=== PATIENT | female | born 1950 | race Caucasian/White ===

== ENCOUNTER → 2016-12-15 | Outpatient (CLI) | payer BC ==
[~2016-12-15] MED LIST: ALBU18002 INH; ASPI81TA28 PO; CALC600T9 PO; CLR10 PO; FERR1TAB23 PO; FLUT0.15 NAE; FLUT1AER5 INH; FMR25 PO; FURO20TA PO; GLUC1000 PO; HYZ/10015 PO; IBUP-103 PO; INSDGI SC; IRON PO; LETR2TAB PO; MAGN250T3 PO; MULT-506 PO; NVLGI SC; OMEG10007 PO; POTA10TA PO; RANI150T3 PO; SYMIN160 INH; TRAM-10 PO; VITA400C15 PO
--- NOTE | 2016-12-15 15:13 | MAMMOGRAPHY REPORT ---
UNILATERAL LEFT DIGITAL SCREENING MAMMOGRAM TOMOSYNTHESIS WITH CAD: 12/15/2016 CLINICAL HISTORY: Routine screening. Patient has no complaints. TECHNIQUE: Left breast tomosynthesis in addition to standard 2D mammography was performed. Current slick rouse was also evaluated with a Computer Aided Detection (CAD) system. COMPARISON: Comparison is made to exams dated: 12/13/2015 mammogram, 12/08/2014 mammogram, 11/30/2014 m ammogram, 01/18/2014 ultrasound, 11/20/2011 mammogram, and 11/19/2010 mammogram - [facility]. BREAST COMPOSITION: There are scattered areas of fibroglandular density in the left breast. FINDINGS: There is a benign popcorn calcification, a few benign coarse calcifications and groupings of coarse heterogeneous microcalcifications in the left breast that are benign in appearance. No ne w suspicious mass, architectural distortion or cluster of new, suspicious microcalcifications is see n. IMPRESSION: ACR BI-RADS CATEGORY 1: NEGATIVE There is no mammographic evidence of malignancy. A 1 year screening mammogram is recommended. The p atient will receive written notification of the results. Approximately 10% of breast cancers are not detected with mammography. A negative mammographic repor t should not delay biopsy if a clinically suggestive mass is present. Nicolette Menard M.D. ay/:12/15/2016 14:37:12 Seaman Officer: Sara WOODS(Domi)(M), [facility] letter sent: Normal 1/2 BI-RADS Code: ACR BI-RADS Category 1: Negative
== END | disposition home or self-care (01) ==
LOC: C.MAMM 12:09
PROVIDERS: ATTEND Family Medicine
DX: Z12.31 Encounter for screening mammogram for malignant neoplasm of breast (principal); Z90.12 Acquired absence of left breast and nipple

== ENCOUNTER → 2017-01-01 | Outpatient (CLI) | payer BC | END | disposition home or self-care (01) | LOC: C.MAMM 10:03 | PROVIDERS: ATTEND Nurse Practitioner | DX: M85.88 Other specified disorders of bone density and structure, other site (principal) ==

== ENCOUNTER → 2017-02-18 | Outpatient (CLI) | payer BC ==
[~2017-02-18] MED LIST changes: -FLUT1AER5 INH; -IRON PO; -LETR2TAB PO; +NVLGI/PEN SC; +VITACAP37 PO
[2017-02-18 12:37] LABS: BLOOD UREA NITROGEN 20 mg/dl (7-18); BUN/CREATININE RATIO 21.6 (10-20); CALCIUM 9.3 mg/dl (8.5-10.1); CARBON DIOXIDE 29 mmol/L (21-32); CHLORIDE 107 mmol/L (98-107); CREATININE 0.91 mg/dl (0.60-1.20); GLUCOSE 107 mg/dl (70-99); POTASSIUM 4.2 mmol/L (3.5-5.1); SODIUM 141 mmol/L (136-145)
[2017-02-18 12:39] LABS: ESTIMATED AVERAGE GLUCOSE 137 mg/dl; HA1C FLAG Normal (Normal); HEMATOCRIT 44.6 % (37-47); MEAN CELL VOLUME 99.6 fL (80-100); MEAN CORPUSCULAR HGB CONC 31.2 g/dl (32-36); MEAN PLATELET VOLUME 11.1 fL (7.4-10.4); PLATELET COUNT 160 K/uL (130-400); RED BLOOD COUNT 4.48 M/uL (4.2-5.4); WHITE BLOOD COUNT 117.39 K/uL (4.8-10.8)
[2017-02-18 12:41] LABS: ALB/GLOB RATIO 1.4 (0.9-2); ALKALINE PHOSPHATASE 67 U/L (45-117); ALT/SGPT 28 U/L (12-78); AST/SGOT 16 U/L (15-37); CHOLESTEROL 185 mg/dl (0-200); CHOLESTEROL/HDL RATIO 5.4; HDL CHOLESTEROL 34 mg/dl; LDL CHOLESTEROL CALCULATED 118 mg/dl; TRIGLYCERIDES 167 mg/dl (0-150); VERY LOW DENSITY LIPOPROT CALC 33 mg/dl
[2017-02-18 12:54] LABS: RATIO 5.1 mcg/mg (0-30.0)
[2017-02-18 13:32] LABS: BASO ABS # 0.94 K/uL (0-0.2); BASOPHIL % 0.8 %; COMPLETE YES; LYMPH ABS # 109.88 K/uL (1.2-3.4); LYMPHOCYTE % 93.6 %; NEUTROPHILS % 2.4 %; SMUDGE CELLS PRESENT; STOMATOCYTE 2+
== END | disposition home or self-care (01) ==
LOC: C.LABPVFM 07:50
PROVIDERS: ATTEND Family Medicine
DX: E11.9 Type 2 diabetes mellitus without complications (principal); E78.5 Hyperlipidemia, unspecified; I10 Essential (primary) hypertension; C91.10 Chronic lymphocytic leukemia of B-cell type not having achieved remission; C50.919 Malignant neoplasm of unspecified site of unspecified female breast

== ENCOUNTER → 2017-03-05 | Day surgery (SDC) | payer BC ==
[2017-02-16 08:36] VITALS: Ht 167.6 cm; Wt 125.5 kg
[~2017-03-05] VITALS: Ht 167.6 cm; Wt 125.5 kg
[~2017-03-05] MED LIST changes: +IOPAMIDOL INJ 61% 15 ML VIAL ONE; +LIDOCAINE HCL 1% MPF 5 ML VIAL ONE; +SODIUM CHLORIDE 0.9% INJ 10 ML VIAL ONE
--- NOTE | 2017-03-05 13:51 | History & Physical Bridge - SC ---
H&P Re-Evaluation Bridge Note: I have examined the patient, reviewed the History & Physical and in the interval since the performance of the History & Physical I have noted the following changes of clinical significance: No changes noted
[2017-03-05 14:17] VITALS: TEMP 37.2
--- NOTE | 2017-03-05 14:24 | Discharge Instructions ---
Discharge Instructions Date of Service March 05, 2017. Visit Reason for Visit: Lumbar Radiculopathy Discharge Discharge Diagnosis / Problem: back and leg pain Discharge Goals Goal(s): Decrease discomfort, Improve function Activity Recommendations Activity Limitations: resume your previous activity Anesthesia . Post Anesthesia Instructions: If you have had General Anesthesia or IV Sedation: * Do not drive today. * Resume driving when surgeon permits. * Do not make important decisions or sign legal documents today. * Call surgeon for: 1. Temperature elevations greater than 101 degrees F. 2. Uncontrollable pain. 3. Excessive bleeding. 4. Persistent nausea and vomiting. 5. Medication intolerance (nausea, vomiting or rash). * For nausea and vomiting use only clear liquids such as: tea, soda, bouillon until nausea subsides, then gradually increase diet as tolerated. * If you have any concerns or questions, call your surgeon's office. If physician is unavailable and it is an emergency, call 911 or go to the nearest emergency room. . Diet Recommendations Recommended Home Diet: resume previous diet Procedures Procedures Performed: Lumbar Epidural Steroid Injection Pending Studies Studies pending at discharge: no Medical Emergencies . Who to Call and When: Medical Emergencies: If at any time you feel your situation is an emergency, please call 911 immediately. . Non-Emergent Contact Non-Emergency issues call your: Specialist . . "Provider Documentation" section prepared by Valentin Titus. .
[2017-03-05 14:26] VITALS: BP 122/78; PULSE 85; O2SAT 93
--- NOTE | 2017-03-05 16:41 | OPERATIVE REPORT ---
DATE OF OPERATION: 03/05/2017 PREOPERATIVE DIAGNOSIS: Lumbar spinal stenosis with neurogenic claudication. POSTOPERATIVE DIAGNOSIS: Same. PROCEDURE: Left paramedian L4-L5 interlaminar epidural steroid injection under fluoroscopic guidance. INDICATIONS: The patient is a 66-year-old white female who underwent an epidural injection in 08/2016, did very well up until a short period ago when her pain started to return and be problematic to her. She presents today for an injection to provide her with relief of neurogenic claudication issues. PHYSICAL EXAMINATION: Pleasant female seated comfortably. She is nontender to palpation. She had no issues with forward flexion or extension. She had normal lower extremity strength. Negative seated straight leg raises. CONSENT: Verbal and written consent was obtained from the patient. Risks and benefits were reviewed. Risks include but are not limited to epidural abscess, epidural hematoma, allergic reaction, dural puncture. The patient wishes to proceed. PROCEDURE IN DETAIL: The patient was taken back to the special procedures room of the [facility] where she was maintained in a prone position. Backside was cleansed with Betadine x3 and a dry sterile dressing was applied. Fluoroscope was used to identify the L4-L5 interlaminar space. Overlying skin on the right side was anesthetized with 4 mL of lidocaine 1% with a 25-gauge 1-1/2-inch needle. A 22-gauge 4-1/4-inch Tuohy needle was then directed down toward the interlaminar space, was advanced under lateral fluoroscopic guidance, loss of resistance was noted at a depth of 9.5 cm. Isovue-300 contrast 1 mL was injected which demonstrated epidural uptake pattern which was confirmed with both AP and lateral views. She then underwent injection after negative aspiration of 40 mg of Depo-Medrol and 4 mL of preservative-free sodium chloride. Injection was done very slowly as she had a lot of pressure sensation in a normal distribution. DISPOSITION: 1. The patient is taken out into the discharge recovery area where she will be discharged home once discharge criteria have been met. 2. Follow up in the [facility] office in 2-4 weeks. I attest to the content of the Intraoperative Record and any orders documented therein. Any exceptio ns are noted below.
== END | disposition home or self-care (01) ==
LOC: X.SURG 12:55
PROVIDERS: ATTEND Physical Medicine & Rehabilitation
DX: M48.06 Spinal stenosis, lumbar region (principal); Z79.82 Long term (current) use of aspirin; Z79.899 Other long term (current) drug therapy

== ENCOUNTER → 2017-07-30 | Outpatient (CLI) | payer BC ==
[~2017-07-30] MED LIST changes: -ALBU18002 INH; -IOPAMIDOL INJ 61% 15 ML VIAL ONE; -LIDOCAINE HCL 1% MPF 5 ML VIAL ONE; -NVLGI/PEN SC; +OPTIRAY 320 IV PRN; -SODIUM CHLORIDE 0.9% INJ 10 ML VIAL ONE; -VITACAP37 PO
--- NOTE | 2017-07-30 13:34 | DIAGNOSTIC IMAGING REPORT ---
(CHEST) THORAX WITH CLINICAL HISTORY: 67 years-old Female presenting with CLL, history of breast cancer. TECHNIQUE: Multidetector CT imaging of the chest was performed after the administration of intravenous contrast. IV contrast: 118 mL of Optiray 320. A dose lowering technique was used consistent with the principles of ALARA (as low as reasonably achievable). COMPARISON: 01/11/2015. CT DOSE (mGy.cm): The estimated cumulative dose is 3370.01 mGy.cm. FINDINGS: Pelt Salter topogram: Unremarkable. On soft tissue windows, post surgical changes of right mastectomy. Significant interval increase in multifocal grossly metastatic lymphadenopathy involving the bilateral axillary, supraclavicular fossae, mediastinum, gloria, right internal mammary, and upper abdominal regions. Atherosclerosis of the aorta. Mild coronary artery and aortic valve calcification. Normal heart size. No pericardial or pleural effusion. Apart from frankly metastatic upper abdominal lymphadenopathy, the liver has a macronodular contour suggesting cirrhosis. On lung windows, bandlike opacities at the lung bases likely atelectasis or scarring. Airways patent. On bone windows, degenerative changes of the thoracic spine. Heterogeneous radiolucency in the T8 vertebral body with a morphology that suggests an underlying benign hemangioma. IMPRESSION: 1. Interval progression of disease with multifocal sites of lymphadenopathy as above, including in the upper abdomen. This is most suggestive of progressive lymphoproliferative disease, although the presence of right internal mammary lymphadenopathy raises concern for breast cancer recurrence. 2. No pulmonary parenchymal involvement. Electronically signed by: Isaak Dowling M.D. 07/30/2017 1:32 PM Dictated Date/Time: 07/30/2017 1:26 PM
--- NOTE | 2017-07-30 13:40 | DIAGNOSTIC IMAGING REPORT ---
CT SCAN OF THE ABDOMEN AND PELVIS WITH IV CONTRAST CLINICAL HISTORY: CLL. COMPARISON STUDY: Abdominal CT dated 03/06/2014. TECHNIQUE: Following the IV administration of 118 cc of Optiray 320, CT scan of the abdomen and pelvis is performed from the lung bases to the proximal femora. Images are reviewed in the axial, sagittal, and coronal planes. IV contrast was administered without complication. A dose lowering technique was utilized adhering to the principles of ALARA. The examination is degraded by large body habitus, and by streak artifact from the body wall abutting the CT gantry. FINDINGS: Lung bases: The heart is normal in size and without pericardial effusion. There is bibasilar scarring versus atelectasis. No airspace consolidation or pleural effusion is identified. Enlarged axillary lymph nodes are partially visualized and measure up to 3.4 x 2.2 cm. Enlarged inferior mediastinal lymph nodes are identified. A node adjacent to the ascending thoracic aorta on image #68 measures 2.7 x 1.5 cm. There are postoperative changes from previous right mastectomy. Liver: The contrast-enhanced liver is enlarged, measuring 24.5 cm in length. The liver is normal in attenuation. There is no intrahepatic biliary ductal dilatation. The hepatic veins and portal veins are patent. Gallbladder: Unremarkable. Spleen: The spleen is enlarged, measuring 17.8 cm in length. Pancreas: Moderately atrophic and grossly unremarkable. Adrenal glands: Unremarkable. Kidneys: The contrast enhanced kidneys demonstrate cortical atrophy and are without hydronephrosis. The kidneys enhance symmetrically. A 1.1 cm nonobstructing calculus is present in the right upper pole. A 3.1 x 3.2 cm lesion is seen arising from the lower pole of left kidney on axial image #250. The appearance is consistent with an angiomyolipoma, and this has modestly increased in size from 2014 when it measured up to 2.1 cm. Abdominal vasculature: The abdominal aorta is normal in course and caliber noting mild atherosclerotic calcification. Bowel: The small bowel and colon are normal in course and caliber. There is moderate diverticulosis of the left colon without CT evidence of acute diverticulitis. The appendix is well-visualized and normal. Peritoneum: There is no intraperitoneal free air or abdominal ascites. Lymphadenopathy: There is bulky upper abdominal, retroperitoneal, mesenteric, iliac chain, and pelvic sidewall lymphadenopathy. This has significantly progressed from the 03/06/2014 examination. Retroperitoneal lymphadenopathy encases the abdominal aorta and IVC. The largest majo aggregate measures approximately 5.5 x 13 cm in dimension as seen on image #224. A left pelvic sidewall node on image #409 measures 7.5 x 3.7 cm. Mildly enlarged inguinal lymph nodes are identified. The largest is on the left seen on image #428 and measures 2.5 x 2.2 cm. Pelvic viscera: The bladder, uterus, and adnexa are normal as visualized. Skeletal structures: The skeletal structures are osteopenic. There is moderate lumbosacral spondylosis. A left hemitransitional lumbosacral segment is incidentally noted. No lytic or blastic lesions are seen. IMPRESSION: 1. There is bulky axillary, mediastinal, upper abdominal, mesenteric, retroperitoneal, iliac chain, pelvic sidewall, and inguinal lymphadenopathy as detailed above. This has significantly progressed from 03/06/2014. 2. Hepatosplenomegaly. Splenomegaly has significantly increased from 2014. 3. No acute infectious or inflammatory findings are identified. 4. Moderate diverticulosis of the left colon without CT evidence of acute diverticulitis. 5. There has been modest enlargement of an angiomyolipoma arising from the lower pole of the left kidney as compared to 03/06/2014. 6. Right-sided nephrolithiasis. 7. Additional findings as above. Electronically signed by: Jeffrey Uribe M.D. 07/30/2017 1:38 PM Dictated Date/Time: 07/30/2017 1:26 PM
== END | disposition home or self-care (01) ==
LOC: C.CTS 12:20
PROVIDERS: ATTEND Nurse Practitioner Family
DX: C91.10 Chronic lymphocytic leukemia of B-cell type not having achieved remission (principal)

== ENCOUNTER → 2017-09-10 | Day surgery (SDC) | payer BC ==
[2017-08-14 13:21] VITALS: Ht 167.6 cm; Wt 122.3 kg
[~2017-09-10] VITALS: Ht 167.6 cm; Wt 122.3 kg
[~2017-09-10] MED LIST changes: +IOPAMIDOL INJ 61% 15 ML VIAL ONE; +LIDOCAINE HCL 1% MPF 5 ML VIAL ONE; -NVLGI SC; +NVLGI/PEN SC; -OPTIRAY 320 IV PRN; +SODIUM CHLORIDE 0.9% INJ 10 ML VIAL ONE; -VITA400C15 PO; +VITACAP37 PO
[2017-09-10 14:30] VITALS: TEMP 37
--- NOTE | 2017-09-10 14:40 | Discharge Instructions ---
Discharge Instructions Date of Service Sep 10, 2017. Visit Reason for Visit: Lumbar Radiculopathy Discharge Discharge Diagnosis / Problem: leg pains Discharge Goals Goal(s): Decrease discomfort, Improve function Medications Stopped Medications Name(s): ASAKENNETH STOPPED ON THURSDAY Activity Recommendations Activity Limitations: resume your previous activity Anesthesia . Post Anesthesia Instructions: If you have had General Anesthesia or IV Sedation: * Do not drive today. * Resume driving when surgeon permits. * Do not make important decisions or sign legal documents today. * Call surgeon for: 1. Temperature elevations greater than 101 degrees F. 2. Uncontrollable pain. 3. Excessive bleeding. 4. Persistent nausea and vomiting. 5. Medication intolerance (nausea, vomiting or rash). * For nausea and vomiting use only clear liquids such as: tea, soda, bouillon until nausea subsides, then gradually increase diet as tolerated. * If you have any concerns or questions, call your surgeon's office. If physician is unavailable and it is an emergency, call 911 or go to the nearest emergency room. . Diet Recommendations Recommended Home Diet: resume previous diet Procedures Procedures Performed: LUMBAR EPIDURAL STEROID INJECTION Pending Studies Studies pending at discharge: no Medical Emergencies . Who to Call and When: Medical Emergencies: If at any time you feel your situation is an emergency, please call 911 immediately. . Non-Emergent Contact Non-Emergency issues call your: Specialist . . "Provider Documentation" section prepared by Valentin Titus. .
[2017-09-10 14:44] VITALS: BP 139/73; PULSE 74; O2SAT 97
--- NOTE | 2017-09-10 15:14 | OPERATIVE REPORT ---
DATE OF OPERATION: 09/10/2017 PREOPERATIVE DIAGNOSES: Lumbar spinal stenosis with neurogenic claudication and left greater than right lower extremity radiculopathy involving the L4 nerve root. POSTOPERATIVE DIAGNOSES: Same. PROCEDURE: Left paramedian L4-L5 interlaminar epidural steroid injection under fluoroscopic guidance. INDICATIONS: The patient is a 67-year-old white female who last received an epidural injection in February 2017 and did very well up until a short time ago when her radicular pain started to returning and being problematic. She presents today for an epidural injection to provide her with relief of the radicular pain. PHYSICAL EXAMINATION: GENERAL: Pleasant female seated comfortably in no apparent distress. MUSCULOSKELETAL: She had no issues with forward flexion. She had normal lower extremity strength and intact sensation distally. CONSENT: Verbal and written consent was obtained from the patient. Risks and benefits were reviewed. Risks include, but are not limited to epidural abscess, epidural hematoma, allergic reaction, and dural puncture. The patient wishes to proceed. DESCRIPTION OF PROCEDURE: The patient was taken back into the special procedures room of the [facility], where she was maintained in a prone position. Backside was cleansed with Betadine x3 and a dry sterile dressing was applied. Fluoroscope was used to identify the L4-L5 interlaminar space. Overlying skin on the left side was then anesthetized with 4 mL of lidocaine 1% with a 25-gauge 1-1/2 inch needle. A 22-gauge 4-1/4 inch Tuohy needle was then directed down towards the intralaminar space. It was advanced under lateral fluoroscopic guidance and loss of resistance was noted at a depth of 11 cm. Isovue-300 contrast 1 mL was injected in which demonstrated an epidural uptake pattern on the lateral view. She then underwent injection after negative aspiration of 40 mg of Depo-Medrol and 4 mL of preservative free sodium chloride. Injection was well tolerated and reproduced a transient radicular sensation down the leg and buttocks, which resolved. DISPOSITION: 1. The patient was taken out into the discharge recovery area, where she will be discharged home once discharge criteria have been met. 2. Follow up in the [facility] office in 4 weeks. I attest to the content of the Intraoperative Record and any orders documented therein. Any exception s are noted below.
== END | disposition home or self-care (01) ==
LOC: X.SURG 12:47
PROVIDERS: ATTEND Physical Medicine & Rehabilitation
DX: M48.062 Spinal stenosis, lumbar region with neurogenic claudication (principal); M54.16 Radiculopathy, lumbar region; Z79.82 Long term (current) use of aspirin

== ENCOUNTER → 2017-12-16 | Outpatient (CLI) | payer BC ==
[~2017-12-16] MED LIST changes: -IOPAMIDOL INJ 61% 15 ML VIAL ONE; -LIDOCAINE HCL 1% MPF 5 ML VIAL ONE; -SODIUM CHLORIDE 0.9% INJ 10 ML VIAL ONE
--- NOTE | 2017-12-16 15:14 | MAMMOGRAPHY REPORT ---
UNILATERAL LEFT DIGITAL DIAGNOSTIC MAMMOGRAM TOMOSYNTHESIS WITH CAD: 12/16/2017 CLINICAL HISTORY: 67-year-old woman with a personal history of right breast cancer status post mastec marybeth, presents for annual mammographic evaluation of the left breast. Patient also has a personal hi story CLL. TECHNIQUE: Left CC and MLO 2-D and tomosynthesis images were obtained, additional 2-D left MLO and e xaggerated lateral CC views were obtained to include more posterior and lateral tissue. Current stud y was also evaluated with a Computer Aided Detection (CAD) system. COMPARISON: Comparison is made to exams dated: 12/15/2016 mammogram, 12/13/2015 ultrasound, 12/13/2015 mammogram, 06/11/2015 mammogram, 12/08/2014 mammogram, and 11/30/2014 mammogram - [facility]. BREAST COMPOSITION: There are scattered areas of fibroglandular density in the left breast. FINDINGS: The glandular pattern is similar to prior exams. There is a stable circumscribed subcentim eter mass in the upper outer posterior left breast, which is stable in appearance dating back to [place] 2010, most likely an intramammary lymph node. There are scattered benign round microcalcificati ons and stable groupings of benign-appearing coarse heterogeneous calcifications in the medial left b reast. No new suspicious mass, architectural distortion or cluster of suspicious microcalcifications is seen. IMPRESSION: ACR BI-RADS CATEGORY 2: BENIGN There is no mammographic evidence of malignancy. Left breast mammography is recommended in one year, and consider remaining a diagnostic patient in case any additional views and/or ultrasound are neede d, given the personal history of right breast cancer. The patient has been verbally notified of the results. Approximately 10% of breast cancers are not detected with mammography. A negative mammographic report should not delay biopsy if a clinically suggestive mass is present. Nicolette Menard M.D. ay/:12/16/2017 10:42:41 Rn Endoscopy: Berenice WOODS(Domi)(M), [facility] letter sent: Normal 1/2 BI-RADS Code: ACR BI-RADS Category 2: Benign
== END | disposition home or self-care (01) ==
LOC: C.MAMM 10:15
PROVIDERS: ATTEND Nurse Practitioner Family
DX: Z85.3 Personal history of malignant neoplasm of breast (principal); Z08 Encounter for follow-up examination after completed treatment for malignant neoplasm

== ENCOUNTER → 2018-01-27 | Outpatient (CLI) | payer BC ==
[2018-01-27 13:51] LABS: HEMOGLOBIN A1C 6.1 % (4.5-5.6)
[2018-01-27 14:02] LABS: ALBUMIN 3.8 gm/dl (3.4-5.0); ALT/SGPT 33 U/L (12-78); BLOOD UREA NITROGEN 14 mg/dl (7-18); CALCIUM 9.6 mg/dl (8.5-10.1); CARBON DIOXIDE 25 mmol/L (21-32); CREATININE 0.76 mg/dl (0.60-1.20); GLUCOSE 165 mg/dl (70-99); POTASSIUM 3.6 mmol/L (3.5-5.1); SODIUM 138 mmol/L (136-145)
[2018-01-27 14:05] LABS: ALKALINE PHOSPHATASE 63 U/L (45-117); AST/SGOT 21 U/L (15-37); TOTAL PROTEIN 7.1 gm/dl (6.4-8.2)
== END | disposition home or self-care (01) ==
LOC: C.LABPVFM 07:33
PROVIDERS: ATTEND Family Medicine
DX: E11.9 Type 2 diabetes mellitus without complications (principal); I10 Essential (primary) hypertension; M54.9 Dorsalgia, unspecified; C91.10 Chronic lymphocytic leukemia of B-cell type not having achieved remission; J44.9 Chronic obstructive pulmonary disease, unspecified

== ENCOUNTER → 2018-02-05 | Outpatient (CLI) | payer BC ==
[~2018-02-05] MED LIST changes: +ALBU18002 INH; +ALLO100T PO; +OPTIRAY 320 IV PRN
--- NOTE | 2018-02-05 14:06 | DIAGNOSTIC IMAGING REPORT ---
CT SCAN OF THE NECK WITH IV CONTRAST CLINICAL HISTORY: CLL. COMPARISON STUDY: CT of the neck dated 04/06/2013. TECHNIQUE: Following the IV administration of 120 cc of Optiray 320, CT scan of the soft tissues of the neck was performed from the skull base to the upper chest. Images are reviewed in the axial, sagittal, and coronal planes. IV contrast was administered without complication. A dose lowering technique was utilized adhering to the principles of ALARA. CT DOSE: 2735.19 mGy.cm FINDINGS: Pharynx: The nasopharynx, oropharynx, and laryngeal pharynx are normal in appearance. The pharyngeal airway is widely patent. There is no evidence of mass lesion. The vocal cords are symmetric. The parapharyngeal fat is well maintained. The prevertebral/retropharyngeal soft tissues are within normal limits. The epiglottis is normal. Tiny calcified tonsilliths are observed. Lymphadenopathy: No pathologically enlarged cervical lymph nodes are identified. Numerous subcentimeter cervical nodes are present. These have decreased in size from the most recent prior study dated 04/06/2013. Thyroid: Normal in size and attenuation. Bilateral thyroid nodules measure up to 11 mm. A calcification is noted in the right lobe. Salivary glands: The parotid and submandibular glands are within normal limits. Brain parenchyma: The visualized brain parenchyma at the skull base is normal in appearance. Vascular structures: The carotid arteries and jugular veins are patent bilaterally. Atherosclerotic plaque is noted in the carotid bulbs. Skeletal structures: The skeletal structures are osteopenic. Imaged portions of the calvarium at the skull base are within normal limits. The cervical spine appears intact noting mild spondylosis. No lytic or blastic lesions identified. Sinuses and mastoids: Trace mucosal thickening is seen in the left maxillary antra. The remaining visualized paranasal sinuses are clear. The mastoid air cells are well pneumatized. Lung apices: Visualized apical lung parenchyma is clear. IMPRESSION: 1. No pathologically enlarged cervical lymph nodes are identified. 2. There are numerous subcentimeter cervical lymph nodes. These have decreased in size from the most recent prior examination dated 04/06/2013. 3. The pharyngeal soft tissues are normal as imaged. Electronically signed by: Jeffrey Uribe M.D. 02/05/2018 2:05 PM Dictated Date/Time: 02/05/2018 2:01 PM
--- NOTE | 2018-02-05 14:11 | DIAGNOSTIC IMAGING REPORT ---
CHEST CT WITH CONTRAST HISTORY: Follow-up study in a patient with history of breast cancer. 01/27/18 0742 CREA 0.76 TECHNIQUE: Multiaxial CT images of the chest were performed following the intravenous administration of contrast. A dose lowering technique was utilized adhering to the principles of ALARA. COMPARISON: CT abdomen and pelvis of same day, CT chest 07/30/2017. FINDINGS: No dominant thyroid nodule identified. Postoperative changes from prior right-sided mastectomy. There is resolution of the previously noted bilateral bulky axillary adenopathy. The largest lymph node within the right axilla no measures 6 mm, image 81 series 9 while previously the largest right axillary lymph nodes measure up to 2.0 cm in short axis. The largest lymph node of the left axilla now measures 9 mm on image 29 series 9, previously the largest left axillary lymph nodes measure up to 2.4 cm. There is resolution of the previously noted right internal mamillary adenopathy. No mediastinal adenopathy. Scattered nonenlarged retrocrural lymph nodes are present. Mildly prominent nonenlarged periportal lymph nodes are present. Heart is normal in size without pericardial effusion. Coronary arterial disease. Thoracic aorta is normal in course and caliber without aneurysm or dissection. Imaged great vessels appear patent. The opacified pulmonary arterial tree is unremarkable. No pneumothorax or pleural effusion. Subsegmental bibasilar groundglass opacities suggest atelectasis. No suspicious pulmonary nodules or masses. Central airways are patent. No acute process of the imaged upper abdomen. Calcification of the medial left breast. No suspicious lytic or blastic bony lesions. Multilevel degenerative changes about the thoracic spine. IMPRESSION: 1. Findings compatible with positive response to therapy with resolution of the previously noted bulky multifocal bilateral axillary, subpectoral, mediastinal and supraclavicular adenopathy. No new or progressive adenopathy identified. 2. Prior right-sided mastectomy. 3. No suspicious pulmonary nodules or masses identified. 4. No evidence of osseous metastatic disease. Electronically signed by: Mohinder Leonard M.D. 02/05/2018 2:09 PM Dictated Date/Time: 02/05/2018 1:57 PM
--- NOTE | 2018-02-05 14:15 | DIAGNOSTIC IMAGING REPORT ---
ABDOMEN AND PELVIS CT WITH IV AND ORAL CONTRAST CT DOSE: HISTORY: Lymphoma. Follow-up. TECHNIQUE: Multiaxial CT images of the abdomen and pelvis were performed following the use of intravenous and oral contrast. A dose lowering technique was utilized adhering to the principles of ALARA. COMPARISON STUDY: Abdomen and pelvis CT 07/30/2017. FINDINGS: Please refer to the dedicated chest CT performed the same day for further evaluation of the lower chest. No suspicious lytic or blastic osseous lesions. A right breast prosthesis is partially visualized. Mild anterior wedging at L1 remains unchanged. No acute fractures. Slightly nodular contour to the liver consistent with cirrhosis. Stable 7 mm hypodense lesion within the posterior segment of the right hepatic lobe. This is too small to characterize. The gallbladder, pancreas, spleen, and adrenal glands are unremarkable. There is an 8 mm stone within the upper pole the right kidney. No hydronephrosis. Stable exophytic fat-containing lesion within the lower pole of the left kidney. This is consistent with an angiomyolipoma and measures 3 cm. The bladder, uterus, bilateral adnexa are unremarkable. Colonic diverticulosis. No bowel wall thickening or obstruction. Normal appendix. No mesenteric lymphadenopathy. Tiny fat-containing umbilical hernia. Interval decrease in size in the multiple retroperitoneal and pelvic lymph nodes. For comparative purposes the dominant aortocaval lymph node measures 18 x 13 mm, previously measuring 5.7 x 4.0 cm. The inguinal lymph nodes are now normal in size. IMPRESSION: 1. Significant decrease in size in the retroperitoneal, pelvic, and inguinal lymph nodes as described above. The retroperitoneal lymph nodes remain mildly enlarged. 2. The spleen is normal in size. 3. Right-sided nephrolithiasis. No hydronephrosis. 4. 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 Electronically signed by: Elbert Alfred M.D. 02/05/2018 2:13 PM Dictated Date/Time: 02/05/2018 2:00 PM
== END | disposition home or self-care (01) ==
LOC: C.CTS 13:26
PROVIDERS: ATTEND Nurse Practitioner Family
DX: C91.10 Chronic lymphocytic leukemia of B-cell type not having achieved remission (principal); N20.0 Calculus of kidney; D17.71 Benign lipomatous neoplasm of kidney

== ENCOUNTER → 2018-02-08 | Outpatient (CLI) | payer BC ==
[~2018-02-08] MED LIST changes: -OPTIRAY 320 IV PRN
[2018-02-08 12:30] LABS: BASO ABS # 0.05 K/uL (0-0.2); EOS % 4.2 %; EOS ABS # 0.21 K/uL (0-0.5); HEMATOCRIT 40.6 % (37-47); IG# 0.05 K/uL (0.00-0.02); LYMPH % 7.3 %; LYMPH ABS # 0.37 K/uL (1.2-3.4); MEAN CELL VOLUME 95.1 fL (80-100); MEAN CORPUSCULAR HEMOGLOBIN 32.8 pg (25-34); MEAN CORPUSCULAR HGB CONC 34.5 g/dl (32-36); MEAN PLATELET VOLUME 11.1 fL (7.4-10.4); MONO % 12.1 %; MONO ABS # 0.61 K/uL (0.11-0.59); NEUT % 74.4 %; NEUT ABS # 3.77 K/uL (1.4-6.5); PLATELET COUNT 165 K/uL (130-400); RED CELL DISTRIBUTION WIDTH SD 48.5 fL (36.4-46.3); WHITE BLOOD COUNT 5.06 K/uL (4.8-10.8)
[2018-02-08 13:20] LABS: ALBUMIN 3.8 gm/dl (3.4-5.0); ALT/SGPT 33 U/L (12-78); AST/SGOT 18 U/L (15-37); BLOOD UREA NITROGEN 19 mg/dl (7-18); CALCIUM 9.5 mg/dl (8.5-10.1); CARBON DIOXIDE 24 mmol/L (21-32); CREATININE 1.03 mg/dl (0.60-1.20); GLUCOSE 232 mg/dl (70-99); POTASSIUM 3.8 mmol/L (3.5-5.1); SODIUM 139 mmol/L (136-145)
[2018-02-08 13:23] LABS: ALKALINE PHOSPHATASE 65 U/L (45-117)
== END | disposition home or self-care (01) ==
LOC: C.LABPVFM 08:55
PROVIDERS: ATTEND Nurse Practitioner Family
DX: C91.10 Chronic lymphocytic leukemia of B-cell type not having achieved remission (principal)

== ENCOUNTER → 2018-02-22 | Day surgery (SDC) | payer BC ==
[2018-02-11 10:41] VITALS: Ht 167.6 cm; Wt 125.9 kg
[~2018-02-22] VITALS: Ht 167.6 cm; Wt 125.9 kg
[~2018-02-22] MED LIST changes: +IOPAMIDOL INJ 61% 15 ML VIAL ONE; +LIDOCAINE HCL 1% MPF 5 ML VIAL ONE; -OMEG10007 PO; +SODIUM CHLORIDE 0.9% INJ 10 ML VIAL ONE
--- NOTE | 2018-02-22 14:02 | [facility] Post Operative Brief Note ---
Immediate Operative Summary Operative Date Feb 22, 2018. Pre-Operative Diagnosis RADICULOPATHY OF LUMBAR REGION Post-Operative Diagnosis RADICULOPATHY OF LUMBAR REGION Procedure(s) Performed LUMBAR EPIDURAL STEROID INJECTION Surgeon DR. Crystal MULLER Filter Operator Surgeon(s) None Estimated Blood Loss NONE Findings Consistent with Post-Op Diagnosis Specimens NA Drains None Anesthesia Type Local Complication(s) none Disposition Disposition:
--- NOTE | 2018-02-22 14:04 | Discharge Instructions ---
Discharge Instructions Date of Service Feb 22, 2018. Visit Reason for Visit: Lumbar Radiculopathy, Lumbar Spinal Stenosis Discharge Discharge Diagnosis / Problem: left leg pain Discharge Goals Goal(s): Decrease discomfort, Improve function Medications Stopped Medications Name(s): last dose of ibuprofen and asa last Activity Recommendations Activity Limitations: resume your previous activity Anesthesia . Post Anesthesia Instructions: If you have had General Anesthesia or IV Sedation: * Do not drive today. * Resume driving when surgeon permits. * Do not make important decisions or sign legal documents today. * Call surgeon for: 1. Temperature elevations greater than 101 degrees F. 2. Uncontrollable pain. 3. Excessive bleeding. 4. Persistent nausea and vomiting. 5. Medication intolerance (nausea, vomiting or rash). * For nausea and vomiting use only clear liquids such as: tea, soda, bouillon until nausea subsides, then gradually increase diet as tolerated. * If you have any concerns or questions, call your surgeon's office. If physician is unavailable and it is an emergency, call 911 or go to the nearest emergency room. . Diet Recommendations Recommended Home Diet: resume previous diet Procedures Procedures Performed: LUMBAR EPIDURAL STEROID INJECTION Pending Studies Studies pending at discharge: no Medical Emergencies . Who to Call and When: Medical Emergencies: If at any time you feel your situation is an emergency, please call 911 immediately. . Non-Emergent Contact Non-Emergency issues call your: Specialist . . "Provider Documentation" section prepared by Valentin Titus. .
[2018-02-22 14:05] VITALS: TEMP 37.1
[2018-02-22 14:28] VITALS: BP 131/86; PULSE 80; O2SAT 96
--- NOTE | 2018-02-22 14:37 | OPERATIVE REPORT ---
DATE OF OPERATION: 02/22/2018 PREOPERATIVE DIAGNOSIS: Lumbar spinal stenosis with a left L4 radiculopathy. POSTOPERATIVE DIAGNOSIS: Same. PROCEDURE: Left paramedian L4-L5 interlaminar epidural steroid injection under fluoroscopic guidance. INDICATIONS: The patient is a 67-year-old white female who has received epidural injections in the past a number of months ago. She did very well and the last shot was given in August of 2017; however, her pain has been starting to increase in significance and she presents today for a lumbar epidural steroid injection to provide her with radicular pain control. PHYSICAL EXAMINATION: Pleasant female, seated comfortably, in no apparent distress. She had normal lower extremity strength, intact sensation distally. Negative seated straight leg raises. CONSENT: Verbal and written consent was obtained from the patient. Risks and benefits were reviewed. Risks include but are not limited to epidural abscess, allergic reaction, dural puncture. The patient wishes to proceed. DESCRIPTION OF PROCEDURE: The patient was taken back to the special procedures room of [facility]. She was maintained in a prone position. Backside was cleansed with Betadine x3 and a dry sterile dressing was applied. Fluoroscope was used to identify the L4-L5 intralaminar space. Overlying skin was anesthetized with 4 mL of lidocaine 1% with a 25-gauge 1.5-inch needle. A 22-gauge 3.5-inch Tuohy needle was then directed down towards the intralaminar space. It was advanced under lateral fluoroscopic guidance and loss of resistance was noted at a depth of 10.5 cm. Isovue-300 contrast 1 mL was injected in which demonstrated epidural uptake pattern. She then underwent injection after negative aspiration of 40 mg Depo-Medrol and 4 mL of preservative-free sodium chloride. Injection was well tolerated. DISPOSITION: 1. The patient is taken out into the discharge recovery area where she will be discharged home once discharge criteria have been met. 2. Follow up in the [facility] office in 4 weeks' time. I attest to the content of the Intraoperative Record and any orders documented therein. Any exception s are noted below.
== END | disposition home or self-care (01) ==
LOC: X.SURG 12:45
PROVIDERS: ATTEND Physical Medicine & Rehabilitation
DX: M48.061 Spinal stenosis, lumbar region without neurogenic claudication (principal); M54.16 Radiculopathy, lumbar region; Z79.4 Long term (current) use of insulin; Z79.899 Other long term (current) drug therapy

== ENCOUNTER → 2018-05-31 | Outpatient (CLI) | payer BC ==
[~2018-05-31] MED LIST changes: -IOPAMIDOL INJ 61% 15 ML VIAL ONE; -LIDOCAINE HCL 1% MPF 5 ML VIAL ONE; -SODIUM CHLORIDE 0.9% INJ 10 ML VIAL ONE
== END | disposition home or self-care (01) ==
LOC: C.LABPVFM 07:41
PROVIDERS: ATTEND Family Medicine
DX: E11.9 Type 2 diabetes mellitus without complications (principal); E78.5 Hyperlipidemia, unspecified; C91.90 Lymphoid leukemia, unspecified not having achieved remission; C50.919 Malignant neoplasm of unspecified site of unspecified female breast; I10 Essential (primary) hypertension; J44.9 Chronic obstructive pulmonary disease, unspecified; Z12.11 Encounter for screening for malignant neoplasm of colon

== ENCOUNTER 2022-11-27 07:55 | Inpatient (IN) ==
--- NOTE | 2022-11-27 08:01 | Emergency Department Note ---
History of Present Illness General Chief complaint: Weakness Time Seen by Provider: 11/27/22 07:59 History of Present Illness This 72-year-old female patient presents to the emergency department via ambulance for evaluation of weakness and dizziness that started yesterday. She states that she feels like she did when her magnesium level was very low in the past. She is currently taking OTC 335 mg magnesium supplements. She also feels very dehydrated. She denies any pain, but just doesn't feel right. She saw her PCP yesterday and was ordered labs, but she has not gotten them done yet. Denies any chest pain or SOB, but she has been coughing. Has had runny nose and nasal congestion along with the cough for the past 2-3 days. Also has a very dry mouth. No fevers. Did a home COVID test that was negative. She has had 5 COVID vaccines as well as her flu vaccine. Denies any abdominal pain, nausea, or vomiting. Denies any urinary symptoms or problems with her BMs. Minimal headache in the back of her head that is intermittent and mild. Her blood sugars have been high since because of all the "treats" she was eating. She is on coumadin for h/o DVT and PE. Denies hematochezia, melena, hematuria, hemoptysis, or hematemesis. She had an epidural injection by Dr. Titus on 11/24/22 for chronic back pain with h/o lumbar spinal stenosis. Denies any leg pain or weakness. Denies any calf pain or swelling. Home Medications Medication Instructions Recorded Confirmed Type fluticasone propionate 50 1 - 2 spray intranasal [facility] 07/12/18 11/26/22 History mcg/actuation nasal spray,suspension (Flonase Allergy Relief) letrozole 2.5 mg tablet (Femara) 2.5 mg PO [facility] 07/12/18 11/26/22 History loratadine 10 mg tablet 10 mg PO [facility] 07/11/19 11/26/22 History vaukjzmk-oez-hwqln acid 0.4 1 tab PO [facility] 07/11/19 11/26/22 History mg-lycopene 300 mcg-lutein 250 mcg tablet (Centrum Silver) lancets 30 gauge ([facility] ea 04/23/20 11/26/22 Rx Lancets) acalabrutinib 100 mg capsule 100 mg PO BID 12/21/20 02/01/23 History (Calquence) budesonide-formoterol HFA 80 2 puff inhalation QAM #30.6 grams 11/22/21 11/26/22 Rx mcg-4.5 mcg/actuation aerosol inhaler (Symbicort) insulin syringe-needle U-100 1 mL #300 ea 01/23/22 11/26/22 Rx 31 gauge x 5/16" (BD Insulin Syringe Ultra-Fine) insulin syringe-needle U-100 0.5 #300 ea 02/25/22 11/26/22 Rx mL 31 gauge x 5/16" (BD Insulin Syringe Ultra-Fine) furosemide 20 mg tablet 20 mg PO QAM #90 tabs 05/01/22 11/26/22 Rx ibuprofen 200 mg tablet 400 mg PO BID Pain 05/27/22 11/26/22 History losartan 100 1 tab PO QAM #90 tabs 05/29/22 11/26/22 Rx mg-hydrochlorothiazide 25 mg tablet (Hyzaar) famotidine 40 mg tablet 40 mg PO BID #180 tabs 09/09/22 11/26/22 Rx magnesium citrate 85 mg chewable 335 mg PO QAM 10/02/22 11/26/22 History tablet gabapentin 300 mg capsule 300 mg PO TID #270 caps 10/21/22 11/26/22 Rx potassium chloride 10 mEq 10 meq PO QAM #90 tabs 10/21/22 11/26/22 Rx tablet,extended release blood sugar diagnostic #400 ea 10/31/22 11/26/22 Rx cyclobenzaprine 10 mg tablet 10 mg PO BID 11/12/22 11/26/22 History insulin aspart U-100 100 unit/mL 8 sliding scale dose subcut QID 11/17/22 11/26/22 History subcutaneous solution (Novolog U-100 Insulin aspart) insulin glargine 100 unit/mL 64 unit subcut HS 11/17/22 11/26/22 History subcutaneous solution (Lantus U-100 Insulin) simvastatin 20 mg tablet 20 mg PO HS 11/17/22 11/26/22 History warfarin 5 mg tablet See Rx Instructions PO UD 11/24/22 11/26/22 History Allergies Allergy/AdvReac Type Severity Reaction Status Date / Time No Known Allergies Allergy Verified 11/26/22 13:14 Past Med/Surg History Medical History (Updated 11/27/22 @ 16:47 by Keyana Glass PA-C) Acute bursitis shots in each knee for bursitis or january or february 2022 Acute superficial venous thrombosis of left lower extremity 06/2020. Anemia Atrial fibrillation dx a while ago, following with PCP, no pacer; has seen jackie hamilton 06/2022 no hx cardioversion Breast cancer, right breast (01/30/14) 2013; chemo, Rt mastectomy, 2020 reoccurrence Chronic back pain Chronic lymphocytic leukemia (CLL), B-cell (~03/22/13) chemotherapy ~2018 and currently taking oral chemo COPD (chronic obstructive pulmonary disease) daily inh Degenerative arthritis of knee, bilateral Diabetes mellitus IDDM GERD (gastroesophageal reflux disease) History of adenomatous polyp of colon History of anesthesia reaction SLOW TO WAKE UP PT REPORTS NEEDS FACE MASK FOR OXYGEN, NO NASAL CANNULA - CAN'T TOLERATE/NASAL PASSAGES CLOSE UP History of colon polyps BENIGN Hyperlipidemia Hyperplastic polyp of descending colon Hypertension Lumbar spinal stenosis Lyme disease hx Morbid obesity with BMI of 40.0-44.9, adult On anticoagulant therapy PE (pulmonary embolism) (~03/06/14) hx 2013 post op mastectomy; treated with AC Spinal stenosis of lumbar region with radiculopathy Surgical History History of bilateral tubal ligation History of section X 2 History of colonoscopy with polypectomy History of mastectomy R WITH AXILLARY EXCISION-R ARM RESTRICTION 2013 History of tooth extraction all teeth removed History of vascular access device had placed for chemo--removed in 2013, port put in again on right side 01/02/2021 > no IV chemo at present just oral Port-A-Cath in place (01/02/21) Insertion of Access Port Dr. Low 01/02/2021 Status post epidural steroid injection Family History Father Family history of diabetes mellitus Myocardial infarction Heart disease Hypertension Mother Family history of diabetes mellitus Brother Family history of diabetes mellitus Cancer Grandmother Family history of diabetes mellitus Grandfather Family history of diabetes mellitus Aunt Cancer Other No family history of adverse response to anesthesia Denies family history of Ovarian cancer Prostate cancer Breast cancer Colorectal cancer Social History Smoking Status: Never smoker Second Hand Exposure: Yes ( smoked until 4 years ago); Hx Alcohol Use: No Hx Substance Use: No Preferred Language: Tanzanian Communication Ability: Effective Hearing Ability: Normal Tip Stretcher Required: No Beliefs That Will Affect Care: None marital status: Current Living Situation: Spouse Current Living Situation Comment: [employer] current occupational status: retired How many Children do You have: 2 Other Information That Helps Us Care for You: No Feels Safe at Home: Yes Childhood Exposure to Second-Hand Smoke: No caffeine: Yes Dental Care, Regularly: No Physical Activity Frequency: Daily Seatbelt Use: always Sunscreen Use: No Assistive Devices: Denture - Upper, Denture - Lower, Glasses and Oxygen - Continuous Review of Systems See HPI for pertinent positives & negatives. Physical Exam Vital Signs Vital Signs - 24 hr 11/27/22 07:41 11/27/22 07:41 11/27/22 07:41 Temperature Temperature Source Pulse Rate 87 Pulse Rate [Apical] Pulse Rate from SpO2 Sensor Pulse Rhythm [Apical] Respiratory Rate 18 16 Respiratory Effort / Characteristics Non-Labored Non-Labored Respiratory Depth Normal Normal Respiratory Pattern Regular Regular Blood Pressure 90/53 L Blood Pressure [Left Arm] Blood Pressure Mean 65 Blood Pressure Mean [Left Arm] Blood Pressure Position Lying Blood Pressure Position [Left Arm] Pulse Oximetry 97 Oxygen Delivery Method Room Air Room Air Oxygen Flow Rate 0 Sepsis Recent Fever Within 48 Hours No Sepsis New/Unexplained Change in Mental Status No Sepsis Action Taken by Nursing No Action Required Oxygen Flow Rate - Titration Pulse Oximetry Post Tiitration 11/27/22 08:12 11/27/22 08:41 11/27/22 09:51 Temperature 37.6 C H Temperature Source Oral Pulse Rate Pulse Rate [Apical] 84 Pulse Rate from SpO2 Sensor Pulse Rhythm [Apical] Regular Respiratory Rate 16 18 Respiratory Effort / Characteristics Non-Labored Respiratory Depth Normal Respiratory Pattern Regular Blood Pressure Blood Pressure [Left Arm] 117/59 L Blood Pressure Mean Blood Pressure Mean [Left Arm] 78 Blood Pressure Position Blood Pressure Position [Left Arm] Lying Pulse Oximetry 97 95 Oxygen Delivery Method Room Air Nasal Cannula Oxygen Flow Rate 2 Sepsis Recent Fever Within 48 Hours Sepsis New/Unexplained Change in Mental Status Sepsis Action Taken by Nursing Oxygen Flow Rate - Titration Pulse Oximetry Post Tiitration 11/27/22 09:40 11/27/22 10:01 11/27/22 11:00 Temperature Temperature Source Pulse Rate Pulse Rate [Apical] Pulse Rate from SpO2 Sensor Pulse Rhythm [Apical] Respiratory Rate Respiratory Effort / Characteristics Respiratory Depth Respiratory Pattern Blood Pressure 109/65 Blood Pressure [Left Arm] Blood Pressure Mean 79 Blood Pressure Mean [Left Arm] Blood Pressure Position Blood Pressure Position [Left Arm] Pulse Oximetry 85 L 88 L Oxygen Delivery Method Room Air Nasal Cannula Oxygen Flow Rate 0 2 Sepsis Recent Fever Within 48 Hours Sepsis New/Unexplained Change in Mental Status Sepsis Action Taken by Nursing Oxygen Flow Rate - Titration 2 3 Pulse Oximetry Post Tiitration 95 93 11/27/22 11:00 Temperature Temperature Source Pulse Rate 79 Pulse Rate [Apical] Pulse Rate from SpO2 Sensor 78 Pulse Rhythm [Apical] Respiratory Rate 16 Respiratory Effort / Characteristics Respiratory Depth Respiratory Pattern Blood Pressure Blood Pressure [Left Arm] Blood Pressure Mean Blood Pressure Mean [Left Arm] Blood Pressure Position Blood Pressure Position [Left Arm] Pulse Oximetry 98 Oxygen Delivery Method Nasal Cannula Oxygen Flow Rate 2.5 Sepsis Recent Fever Within 48 Hours Sepsis New/Unexplained Change in Mental Status Sepsis Action Taken by Nursing Oxygen Flow Rate - Titration Pulse Oximetry Post Tiitration VITALS: Vitals are noted on the nurse's note and reviewed by myself. GENERAL: Non toxic, no acute distress, non-diaphoretic. SKIN: No erythema or warmth noted. Capillary refill <2 sec. EARS: External auditory canals clear, tympanic membranes pearly snow without erythema or effusion bilaterally. EYES: PERRLA. EOMI. Conjunctivae without injection, sclerae without icterus. NOSE: Patent without discharge. MOUTH: Tongue is somewhat dry, but mucous membranes moist. Uvula midline. Airway patent. No evidence for thrush. NECK: Supple without nuchal rigidity. No lymphadenopathy. HEART: Regular rate and rhythm without murmurs gallops or rubs. LUNGS: A few scattered wheezes without rales or rhonchi. No retractions or accessory muscle use or retractions. ABDOMEN: Positive bowel sounds x 4. Normal tympanic percussion. Soft, nontender, without masses or organomegaly. Rehman sign negative. No guarding or rebound tenderness. No focal RLQ or LLQ tenderness. MUSCULOSKELETAL: The patient has a Band-Aid over her area of epidural injection in her lower lumbar spine. No evidence for erythema, warmth, or infection at this time. Strength 5/5 and equal in the bilateral lower extremities. No calf tenderness. Negative Homans' sign. Peripheral pulses 2+. NEURO: Patient was alert and oriented to person place and time. No focal neurological deficits. Course Administered Medications Insulin Aspart (Insulin Aspart Per Unit) 0 units SC ACHS JOSE Stop: 12/27/22 14:29 Last Admin: 11/27/22 15:00 Dose: 9 units Documented By: LUIS Co-signed By: RT Miscellaneous (Calquence~Order Awaiting Action) 1 each N/A QS JOSE Stop: 12/27/22 14:29 Last Admin: 11/27/22 15:11 Dose: Not Given Documented By: LUIS Discontinued Medications Albuterol (Albut/Ipratrop 3mg/0.5mg Neb 3 Ml Vial) 3 ml NEB NOW STA; Protocol Stop: 11/27/22 08:13 Last Admin: 11/27/22 08:39 Dose: 3 ml Documented By: Dexamethasone Sodium Phosphate (DexamethasonePf 10 Mg/Ml Vial) 6 mg IV NOW ONE Stop: 11/27/22 09:56 Last Admin: 11/27/22 10:11 Dose: 6 mg Documented By: Gabapentin (Gabapentin 300 Mg Cap) 300 mg PO ONE ONE Stop: 11/27/22 14:46 Last Admin: 11/27/22 15:10 Dose: 300 mg Documented By: LUIS Sodium Chloride (Nss) 500 mls @ 999 mls/hr IV .Q31M STA Stop: 11/27/22 08:42 Last Infusion: 11/27/22 10:20 Dose: 0 mls/hr Documented By: Admin: 11/27/22 08:33 Dose: 999 mls/hr Documented By: SR Insulin Glargine (Lantus Per Unit Charge) 35 units SQ ONE ONE Stop: 11/27/22 14:46 Last Admin: 11/27/22 15:01 Dose: 35 units Documented By: LUIS Co-signed By: RT Medical Decision Making Differential Diagnosis Differential diagnosis includes PR, pneumonia, COVID, RSV, influenza, UTI, sepsis, bacteremia, electrolyte abnormality, dehydration, or others. Laboratory Data Attestation: I reviewed the patient's lab results. 11/27/22 08:30 11/27/22 08:30 Lab Results 11/27/22 11/27/22 11/27/22 Range/Units 08:30 08:30 08:30 WBC 9.48 (4.8-10.8) K/ul RBC 3.80 L (4.20-5.40) M/uL Hgb 11.9 L (12.0-16.0) g/dl Hct 36.0 L (37.0-47.0) % MCV 94.7 (80.0-100.0) fL MCH 31.3 (25.0-34.0) pg MCHC 33.1 (32.0-36.0) g/dL RDW Std Deviation 48.3 H (36.4-46.3) fL RDW Coeff of Jose E 13.8 (11.5-14.5) % Plt Count 117 L (130-400) K/uL MPV 12.1 (9.4-12.4) fL Immature Gran % (Auto) 0.9 % Neut % (Auto) 37.4 % Lymph % (Auto) 52.3 % [place] % (Auto) 9.1 % Eos % (Auto) 0.1 % Baso % (Auto) 0.2 % Neut # (Auto) 3.54 (1.40-6.50) K/uL Lymph # (Auto) 4.96 H (1.2-3.4) K/uL [place] # (Auto) 0.86 H (0.11-0.59) K/uL Eos # (Auto) 0.01 (0-0.50) K/uL Baso # (Auto) 0.02 (0-0.2) K/uL Immature Gran # (Auto) 0.09 (0.01-0.20) K/uL Smudge Cells Present PT 17.3 H (9.0-12.0) Seconds INR 1.7 H (0.9-1.1) APTT 56.7 H* (21.0-31.0) Seconds PTT Ratio 2.1 Sodium 137 (136-145) mmol/L Potassium 3.9 (3.5-5.1) mmol/L Chloride 103 (98-107) mmol/L Carbon Dioxide 26 (21-32) mmol/L Anion Gap 8 (3-11) BUN 28 H (6-23) mg/dl Creatinine 1.39 H (0.6-1.2) mg/dl Est Cr Clr Drug Dosing 39.1 ml/min Est GFR ( Amer) 44.4 ml/min Est GFR (Non-Af Amer) 38.3 ml/min BUN/Creatinine Ratio 20.1 H (10-20) Glucose 148 H (70-99(Fasting)) mg/dl Lactate (0.4-2.0) mmol/L Calcium 9.0 (8.5-10.1) mg/dl Magnesium 1.4 L (1.7-2.4) mg/dl Total Bilirubin 0.5 (0.2-1.0) mg/dl AST 21 (13-39) U/L ALT 20 (7-52) U/L Alkaline Phosphatase 55 (34-104) U/L Troponin I High Sens 9.0 (0-14) pg/ml C-Reactive Protein 2.45 H (0-0.5) mg/dl Total Protein 6.2 (6.0-8.3) gm/dl Albumin 3.7 (3.4-5.0) gm/dl Globulin 2.5 (2.5-4.0) gm/dl Albumin/Globulin Ratio 1.5 (0.9-2) Lipase 19 (11-82) U/L TSH (0.300-4.500) uIu/ml SARS-CoV-2 (PCR) (Negative) Influenza Type A (PCR) (Neg) Influenza Type B (PCR) (Neg) RSV (RT-PCR) (Neg) 11/27/22 11/27/22 11/27/22 Range/Units 08:30 08:30 08:38 WBC (4.8-10.8) K/ul RBC (4.20-5.40) M/uL Hgb (12.0-16.0) g/dl Hct (37.0-47.0) % MCV (80.0-100.0) fL MCH (25.0-34.0) pg MCHC (32.0-36.0) g/dL RDW Std Deviation (36.4-46.3) fL RDW Coeff of Jose E (11.5-14.5) % Plt Count (130-400) K/uL MPV (9.4-12.4) fL Immature Gran % (Auto) % Neut % (Auto) % Lymph % (Auto) % [place] % (Auto) % Eos % (Auto) % Baso % (Auto) % Neut # (Auto) (1.40-6.50) K/uL Lymph # (Auto) (1.2-3.4) K/uL [place] # (Auto) (0.11-0.59) K/uL Eos # (Auto) (0-0.50) K/uL Baso # (Auto) (0-0.2) K/uL Immature Gran # (Auto) (0.01-0.20) K/uL Smudge Cells PT (9.0-12.0) Seconds INR (0.9-1.1) APTT (21.0-31.0) Seconds PTT Ratio Sodium (136-145) mmol/L Potassium (3.5-5.1) mmol/L Chloride (98-107) mmol/L Carbon Dioxide (21-32) mmol/L Anion Gap (3-11) BUN (6-23) mg/dl Creatinine (0.6-1.2) mg/dl Est Cr Clr Drug Dosing ml/min Est GFR ( Amer) ml/min Est GFR (Non-Af Amer) ml/min BUN/Creatinine Ratio (10-20) Glucose (70-99(Fasting)) mg/dl Lactate (0.4-2.0) mmol/L Calcium (8.5-10.1) mg/dl Magnesium (1.7-2.4) mg/dl Total Bilirubin (0.2-1.0) mg/dl AST (13-39) U/L ALT (7-52) U/L Alkaline Phosphatase (34-104) U/L Troponin I High Sens (0-14) pg/ml C-Reactive Protein Cancelled (0-0.5) mg/dl Total Protein (6.0-8.3) gm/dl Albumin (3.4-5.0) gm/dl Globulin (2.5-4.0) gm/dl Albumin/Globulin Ratio (0.9-2) Lipase (11-82) U/L TSH 0.662 (0.300-4.500) uIu/ml SARS-CoV-2 (PCR) POSITIVE A* (Negative) Influenza Type A (PCR) Negative (Neg) Influenza Type B (PCR) Negative (Neg) RSV (RT-PCR) Negative (Neg) 11/27/22 Range/Units 09:20 WBC (4.8-10.8) K/ul RBC (4.20-5.40) M/uL Hgb (12.0-16.0) g/dl Hct (37.0-47.0) % MCV (80.0-100.0) fL MCH (25.0-34.0) pg MCHC (32.0-36.0) g/dL RDW Std Deviation (36.4-46.3) fL RDW Coeff of Jose E (11.5-14.5) % Plt Count (130-400) K/uL MPV (9.4-12.4) fL Immature Gran % (Auto) % Neut % (Auto) % Lymph % (Auto) % [place] % (Auto) % Eos % (Auto) % Baso % (Auto) % Neut # (Auto) (1.40-6.50) K/uL Lymph # (Auto) (1.2-3.4) K/uL [place] # (Auto) (0.11-0.59) K/uL Eos # (Auto) (0-0.50) K/uL Baso # (Auto) (0-0.2) K/uL Immature Gran # (Auto) (0.01-0.20) K/uL Smudge Cells PT (9.0-12.0) Seconds INR (0.9-1.1) APTT (21.0-31.0) Seconds PTT Ratio Sodium (136-145) mmol/L Potassium (3.5-5.1) mmol/L Chloride (98-107) mmol/L Carbon Dioxide (21-32) mmol/L Anion Gap (3-11) BUN (6-23) mg/dl Creatinine (0.6-1.2) mg/dl Est Cr Clr Drug Dosing ml/min Est GFR ( Amer) ml/min Est GFR (Non-Af Amer) ml/min BUN/Creatinine Ratio (10-20) Glucose (70-99(Fasting)) mg/dl Lactate 0.7 (0.4-2.0) mmol/L Calcium (8.5-10.1) mg/dl Magnesium (1.7-2.4) mg/dl Total Bilirubin (0.2-1.0) mg/dl AST (13-39) U/L ALT (7-52) U/L Alkaline Phosphatase (34-104) U/L Troponin I High Sens (0-14) pg/ml C-Reactive Protein (0-0.5) mg/dl Total Protein (6.0-8.3) gm/dl Albumin (3.4-5.0) gm/dl Globulin (2.5-4.0) gm/dl Albumin/Globulin Ratio (0.9-2) Lipase (11-82) U/L TSH (0.300-4.500) uIu/ml SARS-CoV-2 (PCR) (Negative) Influenza Type A (PCR) (Neg) Influenza Type B (PCR) (Neg) RSV (RT-PCR) (Neg) Imaging Data Radiologist's Impression: Chest X-Ray 11/27/22 08:12 SINGLE VIEW CHEST CLINICAL HISTORY: Cough FINDINGS: An AP, portable, upright chest radiograph is compared to study dated 06/01/2022 and correlated with chest CT dated 01/07/2021. A right subclavian central venous infusion port is unchanged in position. The heart is mildly enlarged. The pulmonary vasculature is noncongested. Chronic interstitial thickening is similar to previous. There is bibasilar scarring/atelectasis. No airspace consolidation or large pleural effusion is identified. No pneumothorax is seen. The skeletal structures are osteopenic. The bony thorax is grossly intact. IMPRESSION: No acute cardiopulmonary abnormality. ACT 112: Negative or not required by law. Electronically signed by: Jeffrey Uribe M.D. 11/27/2022 8:49 AM MDM Narrative I examined the patient. An IV lock was placed and labs were drawn. She denied fevers at home, but her temperature was 37.6 C orally in the ER. She was given 500 mL normal saline solution bolus. She was given a DuoNeb treatment with resolution of the wheezing on exam. EKG was interpreted by myself and shows sinus rhythm at 82 bpm with PACs, but no acute ST or T wave changes. Chest x-ray interpreted by myself and read by radiology as above and showed no acute cardiopulmonary etiology. CBC with slight anemia at 11.9, but noted leukocytosis. INR 1.7 on Coumadin. aPTT 56.7. Creatinine elevated 1.39 and BUN elevated at 28. Glucose 148. CMP otherwise unremarkable. Lipase normal at 19. Magnesium low at 1.4. Lactate normal. CRP elevated at 2.45. TSH normal at 0.662. Urinalysis negative for UTI. RSV and influenza were negative. However, COVID was positive. She was given Decadron 6 mg IV for her positive COVID test. She has a history of COPD and CLL. Her pulse ox kept dropping to 85% while in the emergency department. She was placed on 2 L nasal cannula with improvement of her pulse ox to 88 to 90% and then she was placed on 2.5 L of oxygen by nasal cannula with improvement of her pulse ox to 95%. The patient was independently evaluated by Dr. Jay, who agrees with my assessment and treatment plan. I spoke with the on-call hospitalist who agreed to admit the patient for further evaluation and treatment. Please refer to their dictation for further details. The patient's care was transferred in stable condition. Impression & Plan COVID, COPD (chronic obstructive pulmonary disease), CLL (chronic lymphocytic leukemia), Hypomagnesemia, Hypoxia Discharge Plan Visit Data Chief Complaint: Weakness ED Provider: Roberto Jay ED Midlevel Provider: Keyana Glass Discharge Problem: COVID, COPD (chronic obstructive pulmonary disease), CLL (chronic lymphocytic leukemia), Hypomagnesemia, Hypoxia Patient Disposition: Admitted As Inpatient Condition: Good Discharge Instructions Interventions: ED Discharge Assessment Last Done: 11/27/22 13:31
[2022-11-27] MEDS ORDERED: SODIUM CHLORIDE 0.9% 500 ML IV STA (08:12)
[2022-11-27] MEDS ORDERED: ALBUT/IPRATROP 3MG/0.5MG NEB 3 ML VIAL NEB STA ×2 (08:12→21:38)
[2022-11-27 08:50] LABS: Hemoglobin 11.9 g/dl (12.0-16.0); Mean Corpuscular Hemoglobin 31.3 pg (25.0-34.0); Mean Corpuscular Hgb Conc 33.1 g/dL (32.0-36.0); Mean Corpuscular Volume 94.7 fL (80.0-100.0); Mean Platelet Volume 12.1 fL (9.4-12.4); Platelet Count 117 K/uL (130-400); RDW Coefficient of Variation 13.8 % (11.5-14.5); RDW Standard Deviation 48.3 fL (36.4-46.3); White Blood Count 9.48 K/ul (4.8-10.8)
--- NOTE | 2022-11-27 08:50 | XRay Report ---
SINGLE VIEW CHEST CLINICAL HISTORY: Cough FINDINGS: An AP, portable, upright chest radiograph is compared to study dated 06/01/2022 and correlate d with chest CT dated 01/07/2021. A right subclavian central venous infusion port is unchanged in posi tion. The heart is mildly enlarged. The pulmonary vasculature is noncongested. Chronic interstitial t hickening is similar to previous. There is bibasilar scarring/atelectasis. No airspace consolidation or large pleural effusion is identified. No pneumothorax is seen. The skeletal structures are osteope lashawn. The bony thorax is grossly intact. IMPRESSION: No acute cardiopulmonary abnormality. ACT 112: Negative or not required by law. Electronically signed by: Jeffrey Uribe M.D. 11/27/2022 8:49 AM
[2022-11-27 09:27] LABS: INR 1.7 (0.9-1.1); Partial Thromboplastin Ratio 2.1; Prothrombin Time 17.3 Seconds (9.0-12.0)
[2022-11-27 09:28] LABS: Influenza A virus by PCR Negative (Neg); Influenza B virus by PCR Negative (Neg); RSV by PCR Negative (Neg)
[2022-11-27 09:36] LABS: Basophils # (auto) 0.02 K/uL (0-0.2); Basophils % (auto) 0.2 %; Eosinophils # (auto) 0.01 K/uL (0-0.50); Eosinophils % (auto) 0.1 %; Immature Granulocytes # (auto) 0.09 K/uL (0.01-0.20); Immature Granulocytes % (auto) 0.9 %; Lymphocytes # (auto) 4.96 K/uL (1.2-3.4); Lymphocytes % (auto) 52.3 %; Monocytes # (auto) 0.86 K/uL (0.11-0.59); Monocytes % (auto) 9.1 %; Neutrophils # (auto) 3.54 K/uL (1.40-6.50); Neutrophils % (auto) 37.4 %; Smudge Cells Present
[2022-11-27 09:44] LABS: SARS CoV2 RNA(COVID-19) Ceph POSITIVE (Negative)
[2022-11-27 09:50] LABS: Partial Thromboplastin Time 56.7 Seconds (21.0-31.0)
[2022-11-27] MEDS ORDERED: dexAMETHasone**PF** 10 MG/ML VIAL IV ONE (09:55)
--- NOTE | 2022-11-27 10:40 | History & Physical Report ---
Date of Service November 27, 2022 Assessment & Plan (1) COVID: Plan: Acute hypoxic respiratory failure 2/2 COVID-pneumonia Patient is vaccinated and boosted, 5 vaccinations in total. May have impaired humoral response to vaccination 2/2 BTKI use Presents with global weakness without focal weakness, hypoxia requiring 3 L of nasal cannula with no home requirement Started on dexamethasone 6 mg daily CRP pending - CXR: No acute cardiopulmonary abnormality. Given underlying CLL patient is at increased risk for severe COVID, B TKI inhibitor/Calquence is continued as noted. Titrate oxygen to goal 89% No evidence of fluid overload on admission Renal function pending, BMP delayed at time of admission. Defer remdesivir pending LFTs/creatinine clearance assessment & lit review for efficacy and risk/benefits in the setting of B TKI and steroid use (2) Diabetes mellitus: Plan: Type 2 diabetes mellitus Home glargine 64 units nightly, aspart 8 units with meals/sliding scale Glargine 32 units twice daily, CF 15, carb ratio 500 based on home basal requirements. Pharmacy placing a consult placed given high requirements and concurrent steroid use +NPH 6 units with dexamethasone Glucose checks AC/at bedtime, goal [id number] DM diet (3) COPD (chronic obstructive pulmonary disease): Plan: COPD Continue home Symbicort Albuterol as needed COVID management as above No signs of bacterial superinfection To scant end expiratory wheezing, breathing is unlabored with no wheezing with normal respiration. Continue management as noted for COVID (4) Hyperlipidemia: Plan: Hyperlipidemia Continue simvastatin p.o. nightly (5) Hypomagnesemia: Plan: Hypomagnesemia Chronic, continue magnesium supplementation daily (6) CLL (chronic lymphocytic leukemia): Plan: History of CLL and breast cancer S/p right-sided mastectomy, breast cancer 2013 with clean margins. 2018 diagnosed with CLL now [facility] Letrozole 2.5 mg p.o. every morning Continue Calquence 100 mg twice daily, patient last took morning of 11/27 (7) Atrial fibrillation: Plan: Atrial fibrillation This is noted historically, was over 10 years ago. Although review of EKGs have not shown actual A. fib. Mobile telemetry performed June 2022 did not show A. fib, did show baseline sinus rhythm with atrial bigeminy and occasional PACs Had a normal stress test with Gethuer in the last year, was reportedly okay/no signs of ischemia or A. fib Remains anticoagulated for history of PE (8) PE (pulmonary embolism): Plan: Past history of PE Continue INR, goal 23 INR daily - 1.7 on admit, restarted warfain this last week and slowly increasing. Defer bridge at this time (9) Lumbar spinal stenosis: Plan: Lumbar radiculopathy S/p epidural steroid injections with Dr. Barragan last 11/24/2022 No acute focal leg weakness/paresthesia. Patient is globally weak, likely in the setting of COVID Fall precautions Plan DVT prophylaxis: Anticoagulated Disposition: Medical/surgical, no evidence of cardiac dysrhythmia/arrhythmia and troponin normal on admission CODE STATUS: Full code Diet: Heart healthy, DM History of Present Illness Primary Care Provider: LAURA Delgado 72yo F who presents with global weakness, COVID+ Hx CLL and COPD. 85% on RA after duoneb, --> 3L maintain SpO2 >89% Admitted for weakness and exertional shortness of breath with low-grade fever. Patient has had symptoms for 3 days + cough, feeling a little feverish, no chills or night sweats No diarrhea appetite ok no wheezing, +cough, no sputum production. SoB with exertion no cp. no sob at rest. no chest pain or chest pressure No bleeding, no abdominal pain, no epigastric pain. Denies any history of heart failure, or renal disease. Took meds this AM - Symbicort - Caliquin - Femara - Lasix daily, for leg swelling no hx of heart failure - Glargine 64u daily, aspar 8+sliding (12-15 total typical TID) - Losartan hctz - Simvastatin - Warfarin in evening MoTh 15mg, otherwise 10mg 5xwd - Potassium 300 TID Medical History: Reviewed Medications: Reviewed Surgical History: Reviewed Allergies: Reviewed Social History: No tobacco product use, no etoh Code Status: Rigoberto Swan would be emergency DM. Full Code. Allergies Allergy/AdvReac Type Severity Reaction Status Date / Time No Known Allergies Allergy Verified 11/26/22 13:14 Home Medications Medication Instructions Recorded Confirmed Type fluticasone propionate 50 1 - 2 spray intranasal QAM 07/12/18 11/26/22 History mcg/actuation nasal spray,suspension (Flonase Allergy Relief) letrozole 2.5 mg tablet (Femara) 2.5 mg PO QAM 07/12/18 11/26/22 History loratadine 10 mg tablet 10 mg PO QAM 07/11/19 11/26/22 History otxwzjhx-ond-qgebs acid 0.4 1 tab PO QAM 07/11/19 11/26/22 History mg-lycopene 300 mcg-lutein 250 mcg tablet (Centrum Silver) lancets 30 gauge (OneTouch Delica #200 ea 04/23/20 11/26/22 Rx Lancets) acalabrutinib 100 mg capsule 100 mg PO BID 10/15/20 11/26/22 History (Calquence) budesonide-formoterol HFA 80 2 puff inhalation QAM #30.6 grams 11/22/21 11/26/22 Rx mcg-4.5 mcg/actuation aerosol inhaler (Symbicort) insulin syringe-needle U-100 1 mL #300 ea 01/23/22 11/26/22 Rx 31 gauge x 5/16" (BD Insulin Syringe Ultra-Fine) insulin syringe-needle U-100 0.5 #300 ea 02/25/22 11/26/22 Rx mL 31 gauge x 5/16" (BD Insulin Syringe Ultra-Fine) furosemide 20 mg tablet 20 mg PO QAM #90 tabs 05/01/22 11/26/22 Rx ibuprofen 200 mg tablet 400 mg PO BID Pain 05/27/22 11/26/22 History losartan 100 1 tab PO QAM #90 tabs 05/29/22 11/26/22 Rx mg-hydrochlorothiazide 25 mg tablet (Hyzaar) famotidine 40 mg tablet 40 mg PO BID #180 tabs 09/09/22 11/26/22 Rx magnesium citrate 85 mg chewable 335 mg PO QAM 10/02/22 11/26/22 History tablet gabapentin 300 mg capsule 300 mg PO TID #270 caps 10/21/22 11/26/22 Rx potassium chloride 10 mEq 10 meq PO QAM #90 tabs 10/21/22 11/26/22 Rx tablet,extended release blood sugar diagnostic #400 ea 10/31/22 11/26/22 Rx cyclobenzaprine 10 mg tablet 10 mg PO BID 11/12/22 11/26/22 History insulin aspart U-100 100 unit/mL 8 sliding scale dose subcut QID 11/17/22 11/26/22 History subcutaneous solution (Novolog U-100 Insulin aspart) insulin glargine 100 unit/mL 64 unit subcut HS 11/17/22 11/26/22 History subcutaneous solution (Lantus U-100 Insulin) simvastatin 20 mg tablet 20 mg PO HS 11/17/22 11/26/22 History warfarin 5 mg tablet See Rx Instructions PO UD 11/24/22 11/26/22 History Past Med/Surg History Medical History (Updated 11/27/22 @ 10:37 by Isaak Ariza MD) Acute bursitis shots in each knee for bursitis or january or february 2022 Acute superficial venous thrombosis of left lower extremity 06/2020. Anemia Atrial fibrillation dx a while ago, following with PCP, no pacer; has seen jackie hamilton 06/2022 no hx cardioversion Breast cancer, right breast (01/30/14) 2013; chemo, Rt mastectomy, 2020 reoccurrence Chronic back pain Chronic lymphocytic leukemia (CLL), B-cell (~03/22/13) chemotherapy ~2017 and currently taking oral chemo COPD (chronic obstructive pulmonary disease) daily inh Degenerative arthritis of knee, bilateral Diabetes mellitus IDDM GERD (gastroesophageal reflux disease) History of adenomatous polyp of colon History of anesthesia reaction SLOW TO WAKE UP PT REPORTS NEEDS FACE MASK FOR OXYGEN, NO NASAL CANNULA - CAN'T TOLERATE/NASAL PASSAGES CLOSE UP History of colon polyps BENIGN Hyperlipidemia Hyperplastic polyp of descending colon Hypertension Lumbar spinal stenosis Lyme disease hx Morbid obesity with BMI of 40.0-44.9, adult On anticoagulant therapy PE (pulmonary embolism) (~03/06/14) hx 2013 post op mastectomy; treated with AC Spinal stenosis of lumbar region with radiculopathy Surgical History History of bilateral tubal ligation History of section X 2 History of colonoscopy with polypectomy History of mastectomy R WITH AXILLARY EXCISION-R ARM RESTRICTION 2013 History of tooth extraction all teeth removed History of vascular access device had placed for chemo--removed in 2013, port put in again on right side 01/02/2021 > no IV chemo at present just oral Port-A-Cath in place (01/02/21) Insertion of Access Port Dr. Low 01/02/2021 Status post epidural steroid injection Family History Father Family history of diabetes mellitus Myocardial infarction Heart disease Hypertension Mother Family history of diabetes mellitus Brother Family history of diabetes mellitus Cancer Grandmother Family history of diabetes mellitus Grandfather Family history of diabetes mellitus Aunt Cancer Other No family history of adverse response to anesthesia Denies family history of Ovarian cancer Prostate cancer Breast cancer Colorectal cancer Social History Smoking Status: Never smoker Second Hand Exposure: Yes ( smoked until 4 years ago); Hx Alcohol Use: No Hx Substance Use: No Preferred Language: Russian Communication Ability: Effective Hearing Ability: Normal Adult Secondary Education Instructor Required: No Beliefs That Will Affect Care: None marital status: Current Living Situation: Spouse Current Living Situation Comment: [facility] current occupational status: retired How many Children do You have: 2 Feels Safe at Home: Yes Childhood Exposure to Second-Hand Smoke: No caffeine: Yes Dental Care, Regularly: No Physical Activity Frequency: Daily Seatbelt Use: always Sunscreen Use: No Assistive Devices: Glasses Review of Systems Review of Systems: All systems reviewed & are unremarkable except as noted in HPI & below Physical Exam Physical Exam: General: A&Ox3. NAD. Cooperative. HEENT: Atraumatic, normocephalic. PERLAA. Vision/hearing intact Pulm: Scant end expiratory wheezes, otherwise CTAB A&P. -wheezes, -rales, - rhonchi. Symmetrical chest rise. No increased work of breathing. No respiratory distress. Cardiac: RRR, -mrg. Radial pulses intact and symmetrical. Abdominal: Nontender, nondistended, soft. BS present. Ext: warm, dry, no edema. No asymmetrical LE swelling. Sensation to soft touch intact in hands and feet without asymmetry. Elbow flexion, health insurance agent, ankle dorsi/p lantarflexion 5/5. No saddle anesthesia. Results & Data Results & Data ([facility]) Vital Signs (Past 12 Hours) Vital Signs Temp Pulse Pulse Resp BP BP Pulse Ox 11/27/22 10:01 88 L 11/27/22 09:40 85 L 11/27/22 09:51 84 18 117/59 L 95 11/27/22 08:41 37.6 C H 11/27/22 08:12 16 97 11/27/22 07:41 16 11/27/22 07:41 11/27/22 07:41 87 18 90/53 L 97 O2 Del Method O2 Flow Rate 11/27/22 10:01 Nasal Cannula 2 11/27/22 09:40 Room Air 0 11/27/22 09:51 Nasal Cannula 2 11/27/22 08:41 11/27/22 08:12 Room Air 11/27/22 07:41 11/27/22 07:41 Room Air 0 11/27/22 07:41 Room Air PG Care Time/CCT Total # of Minutes Spent Total Time Spent with Patient: Total time spent is greater than 50% in coordination of care (as documented) at patient's floor/unit and/or counseling patient: Coding Level of Care Code 28142 INT INP/OBS CARE MIN Diagnoses COVID U07.1 Diabetes mellitus E11.9 Diabetes mellitus complication status: without complication Diabetes mellitus usp insulin use: unspecified usp insulin use status Diabetes mellitus type: type 2 COPD (chronic obstructive pulmonary disease) J44.9 Hyperlipidemia E78.5 Hypomagnesemia E83.42 CLL (chronic lymphocytic leukemia) C91.10 Atrial fibrillation I48.91 PE (pulmonary embolism) I26.99 Lumbar spinal stenosis M48.061 (1) Diabetes mellitus Diabetes mellitus complication status: without complication 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
[2022-11-27 11:20] LABS: Albumin Level 3.7 gm/dl (3.4-5.0); Bilirubin,Total 0.5 mg/dl (0.2-1.0); Magnesium 1.4 mg/dl (1.7-2.4); Potassium 3.9 mmol/L (3.5-5.1)
[2022-11-27 11:26] LABS: Albumin Globulin Ratio 1.5 (0.9-2); BUN Creatinine Ratio 20.1 (10-20); C Reactive Protein 2.45 mg/dl (0-0.5); Creatinine Clr Calc Pharmacy 39.1 ml/min; Est GFR (African American) 44.4 ml/min; Est GFR (Non-African American) 38.3 ml/min; Globulin 2.5 gm/dl (2.5-4.0); Total Protein 6.2 gm/dl (6.0-8.3)
[2022-11-27] MEDS ORDERED: ACETAMINOPHEN 325 MG TAB PO PRN (14:17)
[2022-11-27] MEDS ORDERED: PHARMACY GLYCEMIC MGMT CONSULT PRN (14:17)
[2022-11-27] MEDS ORDERED: GLUCOSE 40% GEL 15 GM TUBE PO PRN (14:17)
[2022-11-27] MEDS ORDERED: DEXTROSE 50% 50 ML SYRINGE IV PRN (14:17)
[2022-11-27] MEDS ORDERED: CYCLOBENZAPRINE HCL 10 MG TAB PO PRN (14:17)
[2022-11-27] MEDS ORDERED: GLUCAGON FOR INJ 1 MG VIAL SQ PRN (14:17)
[2022-11-27] MEDS ORDERED: GLUCOSE 10 TAB/TUBE PO PRN (14:17)
[2022-11-27] MEDS ORDERED: CARBOHYDRATES FOR HYPOGLYCEMIA PO PRN (14:17)
--- NOTE | 2022-11-27 14:17 | Electrocardiogram Report ---
Test Reason : Blood Pressure : / mmHG Vent. Rate : 082 BPM Atrial Rate : 082 BPM P-R Int : 204 ms QRS Dur : 086 ms QT Int : 392 ms P-R-T Axes : 072 001 023 degrees QTc Int : 457 ms Poor data quality, interpretation may be adversely affected Sinus rhythm with Premature atrial complexes Otherwise normal ECG When compared with ECG of 01-JUN-2022 14:03, No significant change was found Confirmed by Chilo Garcia ([id number]) on 11/27/2022 2:17:17 PM Referred By: REFERRED SELF Confirmed By:Chilo Garcia
[2022-11-27 14:26] LABS: Appearance Urine Clear (Clear); Bilirubin Urine Negative (Negative); Blood Urine Negative (Negative); Color Urine Yellow; Glucose Urine UA Negative (Negative); Ketones Urine Negative (Negative); Leukocyte Esterase Urine Negative (Negative); Nitrite Urine Negative (Negative); Protein Urine Negative (Negative); Specific Gravity Urine 1.007 (1.000-1.030); Urobilinogen Urine Negative (Negative); pH Urine 5.5 (4.5-7.5)
--- NOTE | 2022-11-27 14:39 | Pharmacy Report ---
Pharmacy Glycemic Short Note 2 - Date of Service November 27, 2022 - Glycemic Short BSG Results (Last 24 hours): 11/27/22 08:30 Glucose 148 H OUTPATIENT ANTIDIABETIC REGIMEN: * Lantus 64 units SC HS * Novolog SSI TIDM ~8 units/meal (max: 25 units/day) HbA1c: 6.6% (06/24/22) ASSESSMENT: * DV is a 72 year old female admitted with COVID-19 pneumonia * Pertinent PMH includes hx of CLL and breast cancer, COPD, and well-controlled T2DM w/ insulin * Patient received dose of IV dexamethasone in ED (6 mg) * Will plan to utilize calculator and consider hybrid of weight-based/outpatient insulin regimen to guide initial dosing * BSG on presentation of 148 mg/dL PLAN FOR INPATIENT GLYCEMIC CONTROL: * Basal insulin * Lantus 35 units SC x 1 this afternoon (~full weight-based stress of 3 dosing) * Lantus 0-15 units SC HS (to provide up to 50 units today) * Reassess in AM to see if steroids are continued * Bolus insulin * NovoLog per scale ACHS or Q6hrs while NPO * Goal Range: Low 110 mg/dL - High 140 mg/dL * Correction Factor: 20 mg/dL/unit * Nutritional / Prandial insulin per carb ratio of 1 unit per 7 grams CHO consumed
[2022-11-27] MEDS ORDERED: GABAPENTIN 300 MG CAP PO ONE (14:45)
[2022-11-27] MEDS ORDERED: LANTUS PER UNIT CHARGE SQ ONE ×3 (14:45→21:00)
[2022-11-27] MEDS: INSULIN ASPART PER UNIT SC SCH ×3 (15:00→20:50)
[2022-11-27] MEDS ORDERED: WARFARIN SOD 5 MG TAB PO SCH (16:00)
[2022-11-27] MEDS: SIMVASTATIN 20 MG TAB PO SCH (20:21)
[2022-11-27] MEDS: GABAPENTIN 300 MG CAP PO SCH (20:22)
[2022-11-27] MEDS: ACALABRUTINIB PO SCH (20:22)
[2022-11-27] MEDS ORDERED: LANTUS PER UNIT CHARGE SQ SCH (21:00)
[2022-11-27] MEDS ORDERED: ACALABRUTINIB PO SCH (21:00)
[2022-11-27] MEDS ORDERED: ALBUTEROL 0.083% NEBU SOLN 3 ML VIAL NEB PRN (22:10)
[2022-11-27] MEDS: FAMOTIDINE 40 MG TABLET PO SCH (22:26)
[2022-11-28] MEDS ORDERED: HEPARIN 100 UNIT/ML 5ML FLUSH FLUSH PRN (02:24)
[2022-11-28] MEDS: ACALABRUTINIB PO SCH ×2 (06:14→18:46)
[2022-11-28 06:23] LABS: Hematocrit (blood only) 36.2 % (37.0-47.0); Hemoglobin 11.9 g/dl (12.0-16.0); Mean Corpuscular Hemoglobin 30.7 pg (25.0-34.0); Mean Corpuscular Hgb Conc 32.9 g/dL (32.0-36.0); Mean Corpuscular Volume 93.3 fL (80.0-100.0); Mean Platelet Volume 12.2 fL (9.4-12.4); Platelet Count 125 K/uL (130-400); RDW Coefficient of Variation 13.9 % (11.5-14.5); RDW Standard Deviation 47.5 fL (36.4-46.3); Red Blood Count 3.88 M/uL (4.20-5.40); White Blood Count 9.17 K/ul (4.8-10.8)
[2022-11-28 06:27] LABS: INR 1.9 (0.9-1.1); Prothrombin Time 19.1 Seconds (9.0-12.0)
[2022-11-28 06:37] LABS: BUN Creatinine Ratio 27.4 (10-20); C Reactive Protein 2.55 mg/dl (0-0.5); Calcium 8.8 mg/dl (8.5-10.1); Creatinine Clr Calc Pharmacy 40.3 ml/min; Est GFR (Non-African American) 39.7 ml/min
[2022-11-28 07:19] LABS: Basophils # (auto) 0.02 K/uL (0-0.2); Basophils % (auto) 0.2 %; Eosinophils # (auto) 0.08 K/uL (0-0.50); Eosinophils % (auto) 0.9 %; Immature Granulocytes # (auto) 0.06 K/uL (0.01-0.20); Immature Granulocytes % (auto) 0.7 %; Lymphocytes # (auto) 6.17 K/uL (1.2-3.4); Lymphocytes % (auto) 67.3 %; Monocytes # (auto) 0.62 K/uL (0.11-0.59); Monocytes % (auto) 6.8 %; Neutrophils # (auto) 2.22 K/uL (1.40-6.50); Neutrophils % (auto) 24.1 %; Polychromasia 1+; Smudge Cells Present
[2022-11-28] MEDS ORDERED: LANTUS PER UNIT CHARGE SQ ONE ×2 (08:00→21:00)
[2022-11-28] MEDS: INSULIN ASPART PER UNIT SC SCH ×4 (08:42→21:57)
[2022-11-28] MEDS: LETROZOLE 2.5 MG TAB PO SCH (08:47)
[2022-11-28] MEDS: FAMOTIDINE 40 MG TABLET PO SCH ×2 (08:55→21:23)
[2022-11-28] MEDS: FLUTICASONE/VILANTEROL 100/25MCG 14 PUFFS/INHALER INH SCH (08:55)
[2022-11-28] MEDS: FUROSEMIDE 20 MG TAB PO SCH (08:56)
[2022-11-28] MEDS: GABAPENTIN 300 MG CAP PO SCH ×3 (08:57→21:24)
[2022-11-28] MEDS: POTASSIUM CHLORIDE 10 MEQ TABCR PO SCH (08:57)
[2022-11-28] MEDS ORDERED: LOSARTAN/HCTZ 50/12.5MG TAB PO SCH (09:00)
[2022-11-28] MEDS ORDERED: INSULIN HUMAN NPH SC SCH (09:00)
[2022-11-28] MEDS ORDERED: MAGNESIUM CITRATE PO SCH (09:00)
--- NOTE | 2022-11-28 11:00 | Emergency Department Note ---
ED Visit Note I have personally evaluated this patient and reviewed the pertinent labs and data. I have discussed the case with the physician operator/assistant foreman and agree with the plan. Please refer to the PA note. This patient comes in with weakness and shortness of breath she was found to have COVID we did give her IV steroids. She does have underlying COPD. She will need to be admitted for further inpatient treatment and evaluate . : COPD (chronic obstructive pulmonary disease) Qualifiers: COPD type: unspecified COPD Qualified Code(s): J44.9 - Chronic obstructive pulmonary disease, unspecified
--- NOTE | 2022-11-28 13:39 | Pharmacy Report ---
Pharmacy Glycemic Short Note 2 - Date of Service November 28, 2022 - Glycemic Short BSG Results (Last 24 hours): 11/27/22 11/27/22 11/27/22 14:32 17:39 20:27 Glucose POC Glucose 219 H 307 H* 290 H 11/28/22 11/28/22 11/28/22 05:41 08:21 12:20 Glucose 267 H POC Glucose 238 H 144 H OUTPATIENT ANTIDIABETIC REGIMEN: * Lantus 64 units SC HS * Novolog SSI TIDM ~8 units/meal (max: 25 units/day) HbA1c: 6.6% (06/24/22) ASSESSMENT: 11/28/22 * BSGs unsurprisingly elevated yesterday following dexamethasone w/ fasting BSG of 238 mg/dL this morning * IV dexamethasone discontinued (last dose on 11/27) * Originally had tightened Novolog parameters this morning in response to elevated BSGS throughout the day yesterday, but given downtrend at lunch and no ongoing steroids, will loosen parameters 11/27/22 * DV is a 72 year old female admitted with COVID-19 pneumonia * Pertinent PMH includes hx of CLL and breast cancer, COPD, and well-controlled T2DM w/ insulin * Patient received dose of IV dexamethasone in ED (6 mg) * Will plan to utilize calculator and consider hybrid of weight-based/outpatient insulin regimen to guide initial dosing * BSG on presentation of 148 mg/dL PLAN FOR INPATIENT GLYCEMIC CONTROL: * Basal insulin * Lantus 35 units SC x 1 this morning * Lantus 0-10 units SC HS x 1 (to provide basal dose ~up to calculated basal component of 50/50 basal/bolus split home regimen) * Lantus 20 units SC BID starting tomorrow morning * Bolus insulin - loosen * NovoLog per scale ACHS or Q6hrs while NPO * Goal Range: Low 110 mg/dL - High 140 mg/dL * Correction Factor: 25 mg/dL/unit * Nutritional / Prandial insulin per carb ratio of 1 unit per 8 grams CHO consumed
[2022-11-28] MEDS ORDERED: WARFARIN SOD 10 MG TAB PO SCH (16:30)
[2022-11-28] MEDS ORDERED: dexAMETHasone 1 MG TAB PO ONE (17:50)
[2022-11-28] MEDS: MAGNESIUM SULFATE / D5W 1 GM/100 ML BAG IV SCH ×3 (18:32→23:19)
--- NOTE | 2022-11-28 20:41 | Hospitalist Progress Note ---
Date of Service November 28, 2022 Assessment & Plan (1) COVID: Plan: Brief period of hypoxia with NC O2 requirement overnight now resolved O2 sats in RA wnl during my visit most recent imaging without discrete pneumonia given her COPD and ongoing cough reasonable to continue dexamethasone but likely will not need long course cont dexamethasone 6mg daily defer on Remdesivir since she has had fairly rapid improvement (2) Diabetes mellitus: Plan: uncontrolled, 2nd to stress of #1 along with dexamethasone use appreciate pharmacy glycemic consult cont basal-bolus insulin regimen - adjustments per pharmacy (3) COPD (chronic obstructive pulmonary disease): Plan: with mild exacerbation 2nd to #1 dexamethasone Continue home Symbicort Albuterol as needed pulmonary toilet with flutter valve, etc (4) Hyperlipidemia: Plan: Continue simvastatin admission LFTs wnl (5) Hypomagnesemia: Plan: chronic, 2nd to double diuretic usage BPs are low-normal - need for ongoing HCTZ use?? will d/w patient - while here will hold HCTZ going forward but continue lasix mag level 1.4 on 11/27/22 - mag sulfate 3gm IV x 1 repeat level am she mentions her acalabrutinib causing low mag I looked up the full prescribing information and adverse side effects - low mag not listed (6) CLL (chronic lymphocytic leukemia): Plan: History of CLL and breast cancer S/p right-sided mastectomy, breast cancer 2013 with clean margins. 2018 diagnosed with CLL Cont Letrozole 2.5 mg p.o. every morning Continue Calquence 100 mg twice daily Cell lines acceptable today Mild thrombocytopenia likely suppression from COVID-19 infection CBC am (7) Atrial fibrillation: Plan: PAF? examines in NSR today admission EKG - NSR has seen Dr Singh in the past (8) PE (pulmonary embolism): Plan: Past history of PE INR goal 23 INR 1.9 today repeat INR am cont usual coumadin dosing regimen (9) Lumbar spinal stenosis: Plan: Lumbar radiculopathy S/p epidural steroid injections with Dr. Titus on 11/24/2022 Plan anticipate d/c home tomorrow updated by phone this evening cont airborne precautions Admission and Anticipated Discharge Date Admission Date: November 27, 2022 Subjective patient feeling better than at admission still with cough - largely dry - but denies dyspnea at rest or with exertion denies headache, sore throat, myalgias, or excessive fatigue good appetite today she talks about her low magnesium and we discussed etiologies for such (double diuretic usage, etc) she asks if she can go home today during the visit I removed her O2 NC for 10+ minutes O2 sats stayed 92% or greater the whole time Review of Systems Review of Systems: gen - no fevers or chills CV - no cp or orthopnea pulm - no wheezing GI - no Nausea/emesis/diarrhea Physical Exam Physical Exam: gen - NAD, pleasant, looks good mouth - MMM neck - no JVD heart - RRR, s1 s2, no murmur lungs - scant LLL dry rales, otherwise CTA b/l; no wheezing abd - soft NT ND BS+ ext - no edema, pulses 2+ b/l psych - a/o x 3 Results & Data Results & Data ([facility]) Vital Signs (Past 12 Hours) Vital Signs Temp Pulse Resp BP Pulse Ox O2 Del Method 11/28/22 20:33 36.9 C 75 20 115/67 95 Room Air 11/28/22 17:29 36.8 C 74 18 111/69 96 Room Air 11/28/22 12:25 97 11/28/22 08:59 Nasal Cannula Laboratory Results Laboratory Results - last 24 hr 11/28/22 11/28/22 11/28/22 05:41 05:41 05:41 WBC 9.17 RBC 3.88 L Hgb 11.9 L Hct 36.2 L MCV 93.3 MCH 30.7 MCHC 32.9 RDW Std Deviation 47.5 H RDW Coeff of Jose E 13.9 Plt Count 125 L MPV 12.2 Immature Gran % (Auto) 0.7 Neut % (Auto) 24.1 Lymph % (Auto) 67.3 [place] % (Auto) 6.8 Eos % (Auto) 0.9 Baso % (Auto) 0.2 Neut # (Auto) 2.22 Lymph # (Auto) 6.17 H [place] # (Auto) 0.62 H Eos # (Auto) 0.08 Baso # (Auto) 0.02 Immature Gran # (Auto) 0.06 Smudge Cells Present Polychromasia 1+ PT 19.1 H INR 1.9 H Sodium Potassium Chloride Carbon Dioxide Anion Gap BUN Creatinine Est Cr Clr Drug Dosing Est GFR ( Amer) Est GFR (Non-Af Amer) BUN/Creatinine Ratio Glucose POC Glucose Calcium C-Reactive Protein Hepatitis C Ab (EIA) Pending Hep C Ab Signal/Cutoff Pending 11/28/22 11/28/22 11/28/22 05:41 08:21 12:20 WBC RBC Hgb Hct MCV MCH MCHC RDW Std Deviation RDW Coeff of Jose E Plt Count MPV Immature Gran % (Auto) Neut % (Auto) Lymph % (Auto) [place] % (Auto) Eos % (Auto) Baso % (Auto) Neut # (Auto) Lymph # (Auto) [place] # (Auto) Eos # (Auto) Baso # (Auto) Immature Gran # (Auto) Smudge Cells Polychromasia PT INR Sodium 138 Potassium 4.0 Chloride 103 Carbon Dioxide 26 Anion Gap 9 BUN 37 H Creatinine 1.35 H Est Cr Clr Drug Dosing 40.3 Est GFR ( Amer) 46.0 Est GFR (Non-Af Amer) 39.7 BUN/Creatinine Ratio 27.4 H Glucose 267 H POC Glucose 238 H 144 H Calcium 8.8 C-Reactive Protein 2.55 H Hepatitis C Ab (EIA) Hep C Ab Signal/Cutoff 11/28/22 11/28/22 17:24 20:31 WBC RBC Hgb Hct MCV MCH MCHC RDW Std Deviation RDW Coeff of Jose E Plt Count MPV Immature Gran % (Auto) Neut % (Auto) Lymph % (Auto) [place] % (Auto) Eos % (Auto) Baso % (Auto) Neut # (Auto) Lymph # (Auto) [place] # (Auto) Eos # (Auto) Baso # (Auto) Immature Gran # (Auto) Smudge Cells Polychromasia PT INR Sodium Potassium Chloride Carbon Dioxide Anion Gap BUN Creatinine Est Cr Clr Drug Dosing Est GFR ( Amer) Est GFR (Non-Af Amer) BUN/Creatinine Ratio Glucose POC Glucose 142 H 213 H Calcium C-Reactive Protein Hepatitis C Ab (EIA) Hep C Ab Signal/Cutoff PG Care Time/CCT Total # of Minutes Spent Total Time Spent with Patient: Total time spent is greater than 50% in coordination of care (as documented) at patient's floor/unit and/or counseling patient: Coding Level of Care Code 79675 SUB INP/OBS CARE 2/35MIN Diagnoses COVID U07.1 Diabetes mellitus E11.9 Diabetes mellitus complication status: without complication Diabetes mellitus long-term insulin use: unspecified terminal carman insulin use status Diabetes mellitus type: type 2 COPD (chronic obstructive pulmonary disease) J44.9 COPD type: unspecified COPD Hyperlipidemia E78.5 Hypomagnesemia E83.42 CLL (chronic lymphocytic leukemia) C91.10 Atrial fibrillation I48.91 PE (pulmonary embolism) I26.99 Lumbar spinal stenosis M48.061 (1) Diabetes mellitus Diabetes mellitus complication status: without complication Diabetes mellitus long-term insulin use: unspecified long-term insulin use status Diabetes mellitus type: type 2 Qualified Code(s): E11.9 - Type 2 diabetes mellitus without complications (2) COPD (chronic obstructive pulmonary disease) COPD type: unspecified COPD Qualified Code(s): J44.9 - Chronic obstructive pulmonary disease, unspecified
[2022-11-28] MEDS: SIMVASTATIN 20 MG TAB PO SCH (21:23)
[2022-11-29] MEDS: ACALABRUTINIB PO SCH (06:14)
[2022-11-29 06:18] LABS: Hematocrit (blood only) 38.6 % (37.0-47.0); Hemoglobin 12.5 g/dl (12.0-16.0); Mean Corpuscular Hemoglobin 30.4 pg (25.0-34.0); Mean Corpuscular Hgb Conc 32.4 g/dL (32.0-36.0); Mean Corpuscular Volume 93.9 fL (80.0-100.0); Mean Platelet Volume 12.4 fL (9.4-12.4); Platelet Count 128 K/uL (130-400); RDW Coefficient of Variation 13.7 % (11.5-14.5); RDW Standard Deviation 47.2 fL (36.4-46.3); Red Blood Count 4.11 M/uL (4.20-5.40); White Blood Count 15.33 K/ul (4.8-10.8)
[2022-11-29 06:30] LABS: INR 2.5 (0.9-1.1); Prothrombin Time 25.5 Seconds (9.0-12.0)
[2022-11-29 06:40] LABS: BUN Creatinine Ratio 31.7 (10-20); Calcium 9.7 mg/dl (8.5-10.1); Creatinine Clr Calc Pharmacy 44.2 ml/min; Est GFR (African American) 51.5 ml/min; Est GFR (Non-African American) 44.4 ml/min; Magnesium 2.1 mg/dl (1.7-2.4); Potassium 4.5 mmol/L (3.5-5.1)
[2022-11-29] MEDS: FLUTICASONE/VILANTEROL 100/25MCG 14 PUFFS/INHALER INH SCH (08:39)
[2022-11-29] MEDS: FUROSEMIDE 20 MG TAB PO SCH (08:40)
[2022-11-29] MEDS: GABAPENTIN 300 MG CAP PO SCH (08:40)
[2022-11-29] MEDS: POTASSIUM CHLORIDE 10 MEQ TABCR PO SCH (08:40)
[2022-11-29] MEDS: FAMOTIDINE 40 MG TABLET PO SCH (08:40)
[2022-11-29] MEDS ORDERED: LOSARTAN POTASSIUM 50 MG TAB PO SCH (09:00)
[2022-11-29] MEDS ORDERED: LANTUS PER UNIT CHARGE SQ SCH (09:00)
[2022-11-29] MEDS: LETROZOLE 2.5 MG TAB PO SCH (09:34)
[2022-11-29] MEDS: INSULIN ASPART PER UNIT SC SCH (09:35)
--- NOTE | 2022-11-29 11:28 | Discharge Summary ---
Date of Service November 29, 2022 Admission HPI Per Admitting Provider 72yo F who presents with global weakness, COVID+ Hx CLL and COPD. 85% on RA after duoneb, --> 3L maintain SpO2 >89% Admitted for weakness and exertional shortness of breath with low-grade fever. Patient has had symptoms for 3 days + cough, feeling a little feverish, no chills or night sweats No diarrhea appetite ok no wheezing, +cough, no sputum production. SoB with exertion no cp. no sob at rest. no chest pain or chest pressure No bleeding, no abdominal pain, no epigastric pain. Denies any history of heart failure, or renal disease. Took meds this AM - Symbicort - Caliquin - Femara - Lasix daily, for leg swelling no hx of heart failure - Glargine 64u daily, aspar 8+sliding (12-15 total typical TID) - Losartan hctz - Simvastatin - Warfarin in evening MoTh 15mg, otherwise 10mg 5xwd - Potassium 300 TID Medical History: Reviewed Medications: Reviewed Surgical History: Reviewed Allergies: Reviewed Social History: No tobacco product use, no etoh Code Status: Rigoberto Swan would be emergency DM. Full Code. Discharge Exam gen - NAD, pleasant, looks good mouth - MMM neck - no JVD heart - RRR, s1 s2, no murmur lungs - scant LLL dry rales, otherwise CTA b/l; no wheezing abd - soft NT ND BS+ ext - no edema, pulses 2+ b/l psych - a/o x 3 Discharge Data Allergies Allergy/AdvReac Type Severity Reaction Status Date / Time No Known Allergies Allergy Verified 11/26/22 13:14 Consultations 11/27/22 10:29 ED Decision to Admit Stat Hospital Course (1) COVID: Brief period of hypoxia with NC O2 requirement overnight now resolved O2 sats in RA wnl during my visit most recent imaging without discrete pneumonia given her COPD and ongoing cough reasonable to continue dexamethasone but likely will not need long course cont dexamethasone 6mg daily defer on Remdesivir since she has had fairly rapid improvement (2) Diabetes mellitus: uncontrolled, 2nd to stress of #1 along with dexamethasone use appreciate pharmacy glycemic consult cont basal-bolus insulin regimen - adjustments per pharmacy (3) COPD (chronic obstructive pulmonary disease): with mild exacerbation 2nd to #1 dexamethasone Continue home Symbicort Albuterol as needed pulmonary toilet with flutter valve, etc (4) Hyperlipidemia: Continue simvastatin admission LFTs wnl (5) Hypomagnesemia: chronic, 2nd to double diuretic usage BPs are low-normal - need for ongoing HCTZ use?? will d/w patient - while here will hold HCTZ going forward but continue lasix mag level 1.4 on 11/27/22 - mag sulfate 3gm IV x 1 repeat level am she mentions her acalabrutinib causing low mag I looked up the full prescribing information and adverse side effects - low mag not listed (6) CLL (chronic lymphocytic leukemia): History of CLL and breast cancer S/p right-sided mastectomy, breast cancer 2013 with clean margins. 2018 diagnosed with CLL Cont Letrozole 2.5 mg p.o. every morning Continue Calquence 100 mg twice daily Cell lines acceptable today Mild thrombocytopenia likely suppression from COVID-19 infection CBC am (7) Atrial fibrillation: PAF? examines in NSR today admission EKG - NSR has seen Dr Singh in the past (8) PE (pulmonary embolism): Past history of PE INR goal 23 INR 1.9 today repeat INR am cont usual coumadin dosing regimen (9) Lumbar spinal stenosis: Lumbar radiculopathy S/p epidural steroid injections with Dr. Titus on 11/24/2022 Plan anticipate d/c home tomorrow updated by phone this evening cont airborne precautions Discharge Plan Discharge Items Patient Disposition: Home - Self-Care Reason For Visit: COVID+ Discharge Diagnosis: 1. COVID-19 infection - improved 2. Low magnesium level - resolved, discharge level 2.1 (normal: 1.7 - 2.4) 3. Mildly low platelets - due to COVID infection 4. Mildly elevated white blood cell count - due to steroids and CLL 5. CLL 6. Low blood pressure - adjustment in blood pressure pills recommended 7. uncontrolled type 2 diabetes - due to steroids, etc. 8. chronic coumadin use - discharge INR 2.5 Condition on Discharge: Good Activity: As commented below Activity Comment: gradually increase your activities over the next 7 days as tolerated Non-emergency contact: Primary Care Provider Call non-emergency contact if: you have any medication questions and your symptoms worsen Follow-up/Referrals: Suzy Barton CRNP [Primary Care Provider] - (5-7 days; office visit or virtual visit ) Diet: Carb Consistent or DM2 Addtl Attending Provider Instructions: Mrs Swan, You were hospitalized for COVID-19 infection. You had a brief amount of time when your oxygen levels were mildly low resulting in need for oxygen. Your chest x-ray, however, did not show any obvious pneumonia. You improved quickly with steroids and other supportive measures. Oxygen was weaned off on 11/28/22. In addition, you had low magnesium with initial level of 1.4. You received IV magnesium and your magnesium level is now 2.1. Your low magnesium was likely due to a combination of "double diuretic" use including furosemide and hydrochlorothiazide. Both diuretics force magnesium out of your system via the kidneys as a side effect. Blood sugars have been high due to recent steroid injection for your back as well as dexamethasone steroid here for your COVID. Recommendations: 1. dexamethasone steroid - take as follows - * 3 tabs x 1 with food on 11/29/22 * 2 tabs x 1 with food on 11/30/22 * 2 tabs x 1 with food on 12/01/22 - then stop 2. albuterol via spacer device (see handout on how to use a spacer) -- 2 puffs every 6 hours as needed for cough/wheeze/shortness of breath 3. STOP your combination losartan-hydrochlorothiazide ("hyzaar") medication. 4. START losartan 50mg once daily on 11/30/22. 5. continue your magnesium and potassium supplements as previous. 6. Isolation period at home -- please stay at home and isolate until AM, 12/04/22. Although your risk of passing COVID to others is likely very low over the next few days, it is always better to be cautious and isolate for a full 10 days from the start of your illness. If you must have visitors to your home during the isolation period please mask and have the visitors mask as well. Plan to rest at home, focus on good nutrition and hydration, use your incentive spirometer device, and simply get well. Many people do have fatigue and lingering cough from their COVID often for another 1-3 weeks even when the illness was relatively mild. 7. insulin for diabetes - * you received 40 units of lantus THIS AM * thus, tonight on 11/29/22 - give yourself 24 units of lantus * tomorrow, 11/30/22, resume your usual lantus dose of 64 units at bedtime * you will likely need to adjust your novolog sliding scale over the next few days due to the steroids; please adjust accordingly to maintain blood sugars (ideally) of 180 or less; follow a consistent diabetic diet 8. if desired may use mucinex up to 1200mg twice daily as needed for cough. 9. no changes to your usual coumadin regimen at this time. 10. labs - please have a repeat INR, CBC, and BMP/Magnesium level in 5 days. your family medicine provider can order these for you. 11. follow-up with your family medicine provider next week even if it is virtual . Return to [facility] if - * you have worsening shortness of breath * you have chest pains * you have uncontrolled blood sugars (greater than 300 consistently) * you are dizzy or lightheaded * you have worsening swelling of your legs * any other concerns It was our pleasure to care for you at [facility]! Please continue to feel better, Dr Bianchi Pending Studies at Discharge: No Stand-Alone Forms: My [facility] [employer], Smoking Cessation Medications and DC Order Prescriptions: New losartan 50 mg tablet 50 mg PO DAILY Qty: 30 2RF dexamethasone 2 mg tablet 2 mg PO .daily as directed Qty: 7 0RF Rx Instructions: start 11/29/22: 3 tabs day 1, 2 tabs day 2, 2 tabs day 3, then stop. Take w/ food. albuterol sulfate [Ventolin HFA] 90 mcg/actuation HFA aerosol inhaler 2 inh inhalation Q6H PRN (Reason: shortness of breath or wheezing or cough) Qty: 8.5 0RF Rx Instructions: use with spacer device. (DME) Aerochamber MV Spacer See Rx Instructions .Route Qty: 1 0RF Rx Instructions: As directed with albuterol. Continued warfarin 5 mg tablet See Rx Instructions PO UD Rx Instructions: 15mg q M/Th, 10mg x 5 days per [facility] orally use as directed magnesium citrate 85 mg tablet,chewable 335 mg PO QAM Calquence 100 mg capsule 100 mg PO BID cyclobenzaprine 10 mg tablet 10 mg PO BID budesonide-formoterol [Symbicort] 80-4.5 mcg/actuation HFA aerosol inhaler 2 puff INHALATION QAM Qty: 30.6 3RF (DME) insulin syringe-needle U-100 [BD Insulin Syringe Ultra-Fine] 1 mL 31 gauge x 5/16 syringe See Dose Instructions .ROUTE .MEDSUPPLY Qty: 300 3RF Rx Instructions: ONCE DAILY WITH LANTUS (DME) insulin syringe-needle U-100 [BD Insulin Syringe Ultra-Fine] 0.5 mL 31 gauge x 5/16" syringe See Rx Instructions .ROUTE .MEDSUPPLY Qty: 300 4RF Rx Instructions: Use As directed QID WITH NOVOLOG furosemide 20 mg tablet 20 mg PO QAM Qty: 90 3RF famotidine 40 mg tablet 40 mg PO BID Qty: 180 3RF gabapentin 300 mg capsule 300 mg PO TID Qty: 270 3RF potassium chloride 10 mEq tablet extended release 10 meq PO QAM Qty: 90 3RF (DME) blood sugar diagnostic Strip See Dose Instructions .ROUTE .MEDSUPPLY Qty: 400 3RF Rx Instructions: TEST FOUR TIMES DAILY; DX CODE- E11.9 loratadine 10 mg tablet 10 mg PO QAM Centrum Silver 0.4-300-250 mg-mcg-mcg tablet 1 tab PO QAM (DME) lancets [OneTouch Delica Lancets] 30 gauge misc See Dose Instructions .ROUTE .MEDSUPPLY Qty: 200 4RF Rx Instructions: As directed QID letrozole [Femara] 2.5 mg Tablet 2.5 mg PO QAM fluticasone propionate [Flonase Allergy Relief] 50 mcg/actuation Alexander,Suspension 1 - 2 spray INTRANASAL QAM ibuprofen 200 mg tablet 400 mg PO BID insulin glargine [Lantus U-100 Insulin] 100 unit/mL solution 64 unit SUBCUT HS Label Comments: 32 units Rx Instructions: 3 month supply insulin aspart U-100 [Novolog U-100 Insulin aspart] 100 unit/mL solution 8 sliding scale dose SUBCUT QID Rx Instructions: using a sliding scale with each meal, on average 8 u with each meal, no more than 25 u daily simvastatin 20 mg tablet 20 mg PO HS Label Comments: AT SUPPER TIME Discontinued losartan-hydrochlorothiazide [Hyzaar] 100-25 mg tablet 1 tab PO QAM Qty: 90 3RF Discharge Orders: Discharge Order (Routine); Ordered 11/29/22 Ordered By: Dariel Douglas/Other Patient Handouts: Using an Inhaler with a Spacer Admission Data Admit Date/Time: 11/27/22 11:10 Attending Provider: Dariel Bianchi Admit Provider: Isaak Ariza Primary Care Provider: Suzy Barton Other Providers: Isaak Ariza Coding Diagnoses COVID U07.1 Diabetes mellitus E11.9 Diabetes mellitus complication status: without complication Diabetes mellitus oysterman insulin use: unspecified oysterman insulin use status Diabetes mellitus type: type 2 COPD (chronic obstructive pulmonary disease) J44.9 COPD type: unspecified COPD Hyperlipidemia E78.5 Hypomagnesemia E83.42 CLL (chronic lymphocytic leukemia) C91.10 Atrial fibrillation I48.91 PE (pulmonary embolism) I26.99 Lumbar spinal stenosis M48.061
== END 2022-11-29 12:33 | disposition home or self-care (01) | DRG 177 ==
LOC: ED 07:55 → 3E 11:10 → SUATTDRO 11:10 → 3E 13:31

== ENCOUNTER 2022-12-03 14:43 | Inpatient (IN) ==
--- NOTE | 2022-12-03 15:33 | XRay Report ---
XR chest 1V portable HISTORY: 72 years-old Female Sepsis acute sepsis COMPARISON: Chest radiograph 11/27/2022 TECHNIQUE: AP view of the chest FINDINGS: Cardiac silhouette is enlarged. Pulmonary vascular congestion. Unchanged positioning of the right pec glen [id number] catheter. No pneumothorax. Pulmonary vascular congestion. Right greater than left bilateral interstitial and alveolar opacities. Trace pleural effusions with hypoinflation. No pneumo thorax. Mild right hemidiaphragmatic elevation. Bones appear grossly intact. IMPRESSION: 1. Right greater than left mixed interstitial and alveolar opacities suspicious for multifocal pneumo timur. 2. Cardiomegaly with pulmonary vascular congestion. ACT 112: Negative or not required by law. The above report was generated using voice recognition software. It may contain grammatical, syntax o r spelling errors. Electronically signed by: Moe Leonard M.D. 12/03/2022 3:31 PM
[2022-12-03] MEDS ORDERED: methylPREDNISolone 125 MG/2 ML VIAL IV STA ×2 (15:36→15:38)
[2022-12-03] MEDS ORDERED: ACETAMINOPHEN 500 MG TAB PO STA (15:38)
--- NOTE | 2022-12-03 15:38 | Emergency Department Note ---
History of Present Illness General Chief Complaint: Shortness of Breath/Dyspnea Stated Complaint: SOB Time Seen by Provider: 12/03/22 14:59 History of Present Illness Provider Complaint: shortness of breath and cough Onset (ago): day(s) (3) Consistency/Duration: + progressively worsening Maximum Pain Intensity: 0 Exacerbated By: + exertion and + coughing Context: + recent illness (Patient reports being diagnosed with COVID 3 days ago) Known history of: COPD and PE Associated symptoms: + fever, + cough, + wheezing, + sputum production, + nausea/vomiting and + chest congestion; no hemoptysis Related Data Home oxygen amount: none Home Medications Medication Instructions Recorded Confirmed Type fluticasone propionate 50 1 - 2 spray intranasal QAM 07/12/18 12/03/22 History mcg/actuation nasal spray,suspension (Flonase Allergy Relief) letrozole 2.5 mg tablet (Femara) 2.5 mg PO QAM 07/12/18 12/03/22 History loratadine 10 mg tablet 10 mg PO QAM 07/11/19 12/03/22 History wlrmgmnq-tqf-phyir acid 0.4 1 tab PO QAM 07/11/19 12/03/22 History mg-lycopene 300 mcg-lutein 250 mcg tablet (Centrum Silver) lancets 30 gauge (OneTouch Delica #200 ea 04/23/20 12/02/22 Rx Lancets) acalabrutinib 100 mg capsule 100 mg PO BID 10/15/20 12/03/22 History (Calquence) budesonide-formoterol HFA 80 2 puff inhalation QAM #30.6 grams 11/22/21 12/03/22 Rx mcg-4.5 mcg/actuation aerosol inhaler (Symbicort) insulin syringe-needle U-100 1 mL #300 ea 01/23/22 12/02/22 Rx 31 gauge x 5/16" (BD Insulin Syringe Ultra-Fine) insulin syringe-needle U-100 0.5 #300 ea 02/25/22 12/02/22 Rx mL 31 gauge x 5/16" (BD Insulin Syringe Ultra-Fine) furosemide 20 mg tablet 20 mg PO QAM #90 tabs 05/01/22 12/03/22 Rx ibuprofen 200 mg tablet 400 mg PO BID Pain 05/27/22 12/03/22 History famotidine 40 mg tablet 40 mg PO BID #180 tabs 09/09/22 12/03/22 Rx magnesium citrate 85 mg chewable 335 mg PO QAM 10/02/22 12/03/22 History tablet gabapentin 300 mg capsule 300 mg PO TID #270 caps 10/21/22 12/03/22 Rx potassium chloride 10 mEq 10 meq PO QAM #90 tabs 10/21/22 12/03/22 Rx tablet,extended release blood sugar diagnostic #400 ea 10/31/22 12/02/22 Rx cyclobenzaprine 10 mg tablet 10 mg PO BID 11/12/22 12/03/22 History insulin aspart U-100 100 unit/mL 8 sliding scale dose subcut QID 11/17/22 12/03/22 History subcutaneous solution (Novolog U-100 Insulin aspart) insulin glargine 100 unit/mL 64 unit subcut HS 11/17/22 12/03/22 History subcutaneous solution (Lantus U-100 Insulin) simvastatin 20 mg tablet 20 mg PO HS 11/17/22 12/03/22 History warfarin 5 mg tablet See Rx Instructions PO UD 11/24/22 12/03/22 History albuterol sulfate 90 mcg/actuation 2 inh inhalation Q6H PRN shortness 11/29/22 12/03/22 Rx aerosol inhaler (Ventolin HFA) of breath or wheezing or cough #8.5 grams inhalational spacing device #1 ea 11/29/22 12/02/22 Rx (Aerochamber MV spacer) losartan 50 mg tablet 50 mg PO DAILY #30 tabs 11/29/22 12/03/22 Rx Allergies Allergy/AdvReac Type Severity Reaction Status Date / Time No Known Allergies Allergy Verified 12/03/22 17:43 Past Med/Surg History Medical History Acute bursitis shots in each knee for bursitis or january or february 2022 Acute superficial venous thrombosis of left lower extremity 06/2020. Anemia Atrial fibrillation dx a while ago, following with PCP, no pacer; has seen jackie hamilton 06/2022 no hx cardioversion Breast cancer, right breast (01/30/14) 2013; chemo, Rt mastectomy, 2020 reoccurrence Chronic back pain Chronic lymphocytic leukemia (CLL), B-cell (~03/22/13) chemotherapy ~2018 and currently taking oral chemo COPD (chronic obstructive pulmonary disease) daily inh Degenerative arthritis of knee, bilateral Diabetes mellitus IDDM GERD (gastroesophageal reflux disease) History of adenomatous polyp of colon History of anesthesia reaction SLOW TO WAKE UP PT REPORTS NEEDS FACE MASK FOR OXYGEN, NO NASAL CANNULA - CAN'T TOLERATE/NASAL PASSAGES CLOSE UP History of colon polyps BENIGN Hyperlipidemia Hyperplastic polyp of descending colon Hypertension Lumbar spinal stenosis Lyme disease hx Morbid obesity with BMI of 40.0-44.9, adult On anticoagulant therapy PE (pulmonary embolism) (~03/06/14) hx 2014 post op mastectomy; treated with AC Spinal stenosis of lumbar region with radiculopathy Surgical History History of bilateral tubal ligation History of section X 2 History of colonoscopy with polypectomy History of mastectomy R WITH AXILLARY EXCISION-R ARM RESTRICTION 2013 History of tooth extraction all teeth removed History of vascular access device had placed for chemo--removed in 2013, port put in again on right side 01/02/2021 > no IV chemo at present just oral Port-A-Cath in place (01/02/21) Insertion of Access Port Dr. Low 01/02/2021 Status post epidural steroid injection Family History Father Family history of diabetes mellitus Myocardial infarction Heart disease Hypertension Mother Family history of diabetes mellitus Brother Family history of diabetes mellitus Cancer Grandmother Family history of diabetes mellitus Grandfather Family history of diabetes mellitus Aunt Cancer Other No family history of adverse response to anesthesia Denies family history of Ovarian cancer Prostate cancer Breast cancer Colorectal cancer Social History Smoking Status: Never smoker Second Hand Exposure: Yes ( smoked until 4 years ago); Hx Alcohol Use: No Hx Substance Use: No Preferred Language: Slovenian Communication Ability: Effective Hearing Ability: Normal Right Of Way Man Required: No Beliefs That Will Affect Care: None marital status: Current Living Situation: Spouse Current Living Situation Comment: [facility] current occupational status: retired How many Children do You have: 2 Feels Safe at Home: Yes Childhood Exposure to Second-Hand Smoke: No caffeine: Yes Dental Care, Regularly: No Physical Activity Frequency: Daily Seatbelt Use: always Sunscreen Use: No Assistive Devices: None Physical Exam Vital Signs: Vital Signs - 24 hr 12/03/22 15:02 12/03/22 15:02 12/03/22 15:08 Temperature 38.2 C H Temperature Source Oral Pulse Rate 88 Pulse Rate [Apical ] Pulse Rhythm [Apic al] Pulse Strength [Ap ical] Respiratory Rate 22 Respiratory Effort / Characteristics Spontaneous Respiratory Depth Normal Respiratory Patter n Blood Pressure 118/75 Blood Pressure [Le ft Arm] Blood Pressure Ayesha n 89 Blood Pressure Ayesha n [Left Arm] Blood Pressure Pos ition [Left Arm] Pulse Oximetry 88 L 88 L Oxygen Delivery Me thod Room Air Room Air Oxygen Flow Rate Sepsis Recent Feve r Within 48 Hours Yes Sepsis New/Unexpla ined Change in Men fer Status No Sepsis Action Take n by Nursing Physician Notified Oxygen Flow Rate - Titration 2 Pulse Oximetry Pos t Tiitration 94 12/03/22 15:09 12/03/22 15:47 12/03/22 17:00 Temperature Temperature Source Pulse Rate Pulse Rate [Apical ] 91 H 83 Pulse Rhythm [Apic al] Regular Pulse Strength [Ap ical] Normal Respiratory Rate 22 24 Respiratory Effort / Characteristics Non-Labored Respiratory Depth Normal Respiratory Patter n Regular Blood Pressure Blood Pressure [Le ft Arm] 127/57 L 117/57 L Blood Pressure Ayesha n Blood Pressure Ayesha n [Left Arm] 80 77 Blood Pressure Pos ition [Left Arm] Lying Pulse Oximetry 96 94 Oxygen Delivery Me thod Nasal Cannula Nasal Cannula Nasal Cannula Oxygen Flow Rate 2 2 2 Sepsis Recent Feve r Within 48 Hours Sepsis New/Unexpla ined Change in Men fer Status Sepsis Action Take n by Nursing Oxygen Flow Rate - Titration Pulse Oximetry Pos t Tiitration Physical Exam: Physical Exam HENT: Exam performed. - Head: Normocephalic and atraumatic. EYES: Conjunctivae and EOM are normal. Right eye exhibits no discharge. Left eye exhibits no discharge. No scleral icterus. NECK: Normal range of motion. Neck supple. No JVD present. CV: Regular rate, regular rhythm, normal heart sounds and intact distal pulses. There is no peripheral edema. Palpable radial pulses bue. PULM/CHEST: Rhonchi bilaterally. Rales at the bases bilaterally. NEURO: Motor and sensation grossly intact. SKIN: Skin is warm and dry. He is not diaphoretic. PSYCH: He has a normal mood and affect. Behavior is normal. Judgment and thought content normal. Course Course 1459: The patient was evaluated in room C5. A complete history and physical exam was performed Cardiac monitoring: An order was placed for continuous cardiac monitoring. The monitor shows a rate of 90 with sinus rhythm interpreted by me Patient found to be febrile and hypoxic on room air. Patient does not usually wear supplemental oxygen. Supplemental oxygen was applied via nasal cannula which improved the patient's oxygen saturation. Sepsis protocols initiated. External medical records were reviewed. Patient was admitted to the hospital from November 28, 2022 until December 19, 2022. Patient was diagnosed with COVID at that time. Patient was discharged with a Decadron taper from the [facility] hospitalist team. 1720: Vital signs stable on supplemental oxygen via nasal cannula. Chest x-ray shows bilateral infiltrates. Labs show leukocytosis of 15.22. No significant change from the white blood cell count of 15.33 on November 29, 2022 when the patient was admitted to the hospital. Patient has been on steroid taper. aPTT 84.7 INR 1.9. VBG shows a venous pH of 7.48 with a venous PCO2 of 34. Lactic acid within normal limits. Troponin elevated at 14.5. Procalcitonin negative. Patient will be admitted to the [facility] team Dr. Gongora will be notified. Administered Medications Discontinued Medications Acetaminophen (Acetaminophen 500 Mg Tab) 1,000 mg PO NOW STA Stop: 12/03/22 15:39 Last Admin: 12/03/22 15:48 Dose: 1,000 mg Documented By: ANA Sodium Chloride (Nss) 500 mls @ 125 mls/hr IV .Q4H JOSE Stop: 01/02/23 15:44 Last Admin: 12/03/22 15:49 Dose: 125 mls/hr Documented By: ANA Methylprednisolone (Methylprednisolone 125 Mg/2 Ml Vial) 125 mg IV NOW STA Stop: 12/03/22 15:37 Last Admin: 12/03/22 15:49 Dose: Not Given Documented By: ANA Methylprednisolone (Methylprednisolone 125 Mg/2 Ml Vial) 125 mg IV NOW STA Stop: 12/03/22 15:39 Last Admin: 12/03/22 15:48 Dose: 125 mg Documented By: ANA Medical Decision Making Medical Records Attestation: I reviewed the patient's medical records. External medical records were reviewed. Patient was admitted to the hospital from November 28, 2022 until December 19, 2022. Patient was diagnosed with COVID at that time. Patient was discharged with a Decadron taper from the [facility] hospitalist team. Home Medications Current Medication List: was personally reviewed by me Laboratory Data Attestation: I reviewed the patient's lab results. 12/03/22 15:35 12/03/22 15:35 Lab Results 12/03/22 12/03/22 12/03/22 Range/Units 15:35 15:35 15:35 WBC 15.22 H (4.8-10.8) K/ul RBC 3.97 L (4.20-5.40) M/uL Hgb 12.2 (12.0-16.0) g/dl Hct 36.9 L (37.0-47.0) % MCV 92.9 (80.0-100.0) fL MCH 30.7 (25.0-34.0) pg MCHC 33.1 (32.0-36.0) g/dL RDW Std Deviation 47.8 H (36.4-46.3) fL RDW Coeff of Jose E 14.2 (11.5-14.5) % Plt Count 136 (130-400) K/uL MPV 12.8 H (9.4-12.4) fL Immature Gran % (Auto) 2.2 % Neut % (Auto) 46.7 % Lymph % (Auto) 44.8 % [place] % (Auto) 6.0 % Eos % (Auto) 0.0 % Baso % (Auto) 0.3 % Neut # (Auto) 7.12 H (1.40-6.50) K/uL Lymph # (Auto) 6.82 H (1.2-3.4) K/uL [place] # (Auto) 0.91 H (0.11-0.59) K/uL Eos # (Auto) 0.00 (0-0.50) K/uL Baso # (Auto) 0.04 (0-0.2) K/uL Immature Gran # (Auto) 0.33 H (0.01-0.20) K/uL Rouleaux 1+ PT 19.3 H (9.0-12.0) Seconds INR 1.9 H (0.9-1.1) APTT 84.7 H* (21.0-31.0) Seconds PTT Ratio 3.1 VBG pH (7.36-7.41) VBG pCO2 (38-50) mmHg VBG pO2 mmHg VBG HCO3 mmol/L VBG O2 Saturation % VBG Base Excess mEq/L Sodium 140 (136-145) mmol/L Potassium 3.7 (3.5-5.1) mmol/L Chloride 106 (98-107) mmol/L Carbon Dioxide 26 (21-32) mmol/L Anion Gap 8 (3-11) BUN 31 H (6-23) mg/dl Creatinine 1.08 (0.6-1.2) mg/dl Est Cr Clr Drug Dosing 63.4 ml/min Est GFR ( Amer) 60.2 ml/min Est GFR (Non-Af Amer) 52.0 ml/min BUN/Creatinine Ratio 28.7 H (10-20) Glucose 162 H (70-99(Fasting)) mg/dl Lactate (0.4-2.0) mmol/L Calcium 9.5 (8.5-10.1) mg/dl Magnesium 1.6 L (1.7-2.4) mg/dl Total Bilirubin 0.9 (0.2-1.0) mg/dl Direct Bilirubin 0.2 (0-0.2) mg/dl AST 28 (13-39) U/L ALT 24 (7-52) U/L Alkaline Phosphatase 62 (34-104) U/L Troponin I High Sens 14.5 H (0-14) pg/ml B-Natriuretic Peptide (0-100) pg/ml Total Protein 6.5 (6.0-8.3) gm/dl Albumin 3.5 (3.4-5.0) gm/dl Procalcitonin (0-0.5) ng/ml SARS-CoV-2, RNA, NAAT (NEGATIVE) 12/03/22 12/03/22 12/03/22 Range/Units 15:35 15:35 15:35 WBC (4.8-10.8) K/ul RBC (4.20-5.40) M/uL Hgb (12.0-16.0) g/dl Hct (37.0-47.0) % MCV (80.0-100.0) fL MCH (25.0-34.0) pg MCHC (32.0-36.0) g/dL RDW Std Deviation (36.4-46.3) fL RDW Coeff of Jose E (11.5-14.5) % Plt Count (130-400) K/uL MPV (9.4-12.4) fL Immature Gran % (Auto) % Neut % (Auto) % Lymph % (Auto) % [place] % (Auto) % Eos % (Auto) % Baso % (Auto) % Neut # (Auto) (1.40-6.50) K/uL Lymph # (Auto) (1.2-3.4) K/uL [place] # (Auto) (0.11-0.59) K/uL Eos # (Auto) (0-0.50) K/uL Baso # (Auto) (0-0.2) K/uL Immature Gran # (Auto) (0.01-0.20) K/uL Rouleaux PT (9.0-12.0) Seconds INR (0.9-1.1) APTT (21.0-31.0) Seconds PTT Ratio VBG pH 7.48 H (7.36-7.41) VBG pCO2 34 L (38-50) mmHg VBG pO2 36 mmHg VBG HCO3 25 mmol/L VBG O2 Saturation 65.4 % VBG Base Excess 2.2 mEq/L Sodium (136-145) mmol/L Potassium (3.5-5.1) mmol/L Chloride (98-107) mmol/L Carbon Dioxide (21-32) mmol/L Anion Gap (3-11) BUN (6-23) mg/dl Creatinine (0.6-1.2) mg/dl Est Cr Clr Drug Dosing ml/min Est GFR ( Amer) ml/min Est GFR (Non-Af Amer) ml/min BUN/Creatinine Ratio (10-20) Glucose (70-99(Fasting)) mg/dl Lactate (0.4-2.0) mmol/L Calcium (8.5-10.1) mg/dl Magnesium (1.7-2.4) mg/dl Total Bilirubin (0.2-1.0) mg/dl Direct Bilirubin (0-0.2) mg/dl AST (13-39) U/L ALT (7-52) U/L Alkaline Phosphatase (34-104) U/L Troponin I High Sens (0-14) pg/ml B-Natriuretic Peptide 27 (0-100) pg/ml Total Protein (6.0-8.3) gm/dl Albumin (3.4-5.0) gm/dl Procalcitonin 0.11 (0-0.5) ng/ml SARS-CoV-2, RNA, NAAT (NEGATIVE) 12/03/22 12/03/22 Range/Units 15:40 15:48 WBC (4.8-10.8) K/ul RBC (4.20-5.40) M/uL Hgb (12.0-16.0) g/dl Hct (37.0-47.0) % MCV (80.0-100.0) fL MCH (25.0-34.0) pg MCHC (32.0-36.0) g/dL RDW Std Deviation (36.4-46.3) fL RDW Coeff of Jose E (11.5-14.5) % Plt Count (130-400) K/uL MPV (9.4-12.4) fL Immature Gran % (Auto) % Neut % (Auto) % Lymph % (Auto) % [place] % (Auto) % Eos % (Auto) % Baso % (Auto) % Neut # (Auto) (1.40-6.50) K/uL Lymph # (Auto) (1.2-3.4) K/uL [place] # (Auto) (0.11-0.59) K/uL Eos # (Auto) (0-0.50) K/uL Baso # (Auto) (0-0.2) K/uL Immature Gran # (Auto) (0.01-0.20) K/uL Rouleaux PT (9.0-12.0) Seconds INR (0.9-1.1) APTT (21.0-31.0) Seconds PTT Ratio VBG pH (7.36-7.41) VBG pCO2 (38-50) mmHg VBG pO2 mmHg VBG HCO3 mmol/L VBG O2 Saturation % VBG Base Excess mEq/L Sodium (136-145) mmol/L Potassium (3.5-5.1) mmol/L Chloride (98-107) mmol/L Carbon Dioxide (21-32) mmol/L Anion Gap (3-11) BUN (6-23) mg/dl Creatinine (0.6-1.2) mg/dl Est Cr Clr Drug Dosing ml/min Est GFR ( Amer) ml/min Est GFR (Non-Af Amer) ml/min BUN/Creatinine Ratio (10-20) Glucose (70-99(Fasting)) mg/dl Lactate 0.7 (0.4-2.0) mmol/L Calcium (8.5-10.1) mg/dl Magnesium (1.7-2.4) mg/dl Total Bilirubin (0.2-1.0) mg/dl Direct Bilirubin (0-0.2) mg/dl AST (13-39) U/L ALT (7-52) U/L Alkaline Phosphatase (34-104) U/L Troponin I High Sens (0-14) pg/ml B-Natriuretic Peptide (0-100) pg/ml Total Protein (6.0-8.3) gm/dl Albumin (3.4-5.0) gm/dl Procalcitonin (0-0.5) ng/ml SARS-CoV-2, RNA, NAAT POSITIVE A* (NEGATIVE) Imaging Data Attestation: I personally reviewed and interpreted this imaging study as follows: My Impression: Chest x-ray: Bilateral infiltrates right greater than left Radiologist's Impression: Chest X-Ray 12/03/22 15:06 XR chest 1V portable HISTORY: 72 years-old Female Sepsis acute sepsis COMPARISON: Chest radiograph 11/27/2022 TECHNIQUE: AP view of the chest FINDINGS: Cardiac silhouette is enlarged. Pulmonary vascular congestion. Unchanged positioning of the right pectoral Jewjhe-i-Musq catheter. No pneumothorax. Pulmonary vascular congestion. Right greater than left bilateral interstitial and alveolar opacities. Trace pleural effusions with hypoinflation. No pneumothorax. Mild right hemidiaphragmatic elevation. Bones appear grossly intact. IMPRESSION: 1. Right greater than left mixed interstitial and alveolar opacities suspicious for multifocal pneumonia. 2. Cardiomegaly with pulmonary vascular congestion. ACT 112: Negative or not required by law. The above report was generated using voice recognition software. It may contain grammatical, syntax or spelling errors. Electronically signed by: Moe Leonard M.D. 12/03/2022 3:31 PM ECG Data Attestation: I personally reviewed and interpreted this ECG as follows: Interpretation: Sinus rhythm with a rate of 89. LA QRS and QTc intervals within normal limits. Left ventricular hypertrophy present. No ST elevation or ST depression. [place] Narrative 1459: The patient was evaluated in room C5. A complete history and physical exam was performed Cardiac monitoring: An order was placed for continuous cardiac monitoring. The monitor shows a rate of 90 with sinus rhythm interpreted by me Patient found to be febrile and hypoxic on room air. Patient does not usually wear supplemental oxygen. Supplemental oxygen was applied via nasal cannula wh ich improved the patient's oxygen saturation. Sepsis protocols initiated. External medical records were reviewed. Patient was admitted to the hospital from November 28, 2022 until December 19, 2022. Patient was diagnosed with COVID at that time. Patient was discharged with a Decadron taper from the [facility] hospitalist team. 1720: Vital signs stable on supplemental oxygen via nasal cannula. Chest x-ray shows bilateral infiltrates. Labs show leukocytosis of 15.22. No significant change from the white blood cell count of 15.33 on November 29, 2022 when the patient was admitted to the hospital. Patient has been on steroid taper. aPTT 84.7 INR 1.9. VBG shows a venous pH of 7.48 with a venous PCO2 of 34. Lactic acid within normal limits. Troponin elevated at 14.5. Procalcitonin negative. Patient will be admitted to the [facility] team Dr. Gongora will be notified. Impression & Plan Hypoxia, COPD (chronic obstructive pulmonary disease), COVID, Pneumonia Critical Care Time Critical Care Time: Yes Total Critical Care Time: 70 I have personally spent greater than 70 minutes of critical care time in the direct management of this patient. This includes bedside care, interpretation of diagnostic studies, and testing, discussion with consultants, patient, and family members, and other required patient management activities. This 70 minutes is in excess of all separately billable procedures. Discharge Plan Visit Data Chief Complaint: Shortness of Breath/Dyspnea Stated Complaint: SOB ED Provider: [facility] Discharge Problem: Hypoxia, COPD (chronic obstructive pulmonary disease), COVID, Pneumonia Patient Disposition: Admitted As Inpatient Forms Stand Alone Forms: My [facility] Prescriptions Prescriptions: No Action warfarin 5 mg tablet See Rx Instructions PO UD Rx Instructions: 15mg q M/Th, 10mg x 5 days per [facility] orally use as directed magnesium citrate 85 mg tablet,chewable 335 mg PO QAM Calquence 100 mg capsule 100 mg PO BID Rx Instructions: PT BROUGHT OWN MED, [facility] DO[facility]T HAVE MED. cyclobenzaprine 10 mg tablet 10 mg PO BID budesonide-formoterol [Symbicort] 80-4.5 mcg/actuation HFA aerosol inhaler 2 puff INHALATION QAM Qty: 30.6 3RF (DME) insulin syringe-needle U-100 [BD Insulin Syringe Ultra-Fine] 1 mL 31 gauge x 5/16 syringe See Dose Instructions .ROUTE .MEDSUPPLY Qty: 300 3RF Rx Instructions: ONCE DAILY WITH LANTUS (DME) insulin syringe-needle U-100 [BD Insulin Syringe Ultra-Fine] 0.5 mL 31 gauge x 5/16" syringe See Rx Instructions .ROUTE .MEDSUPPLY Qty: 300 4RF Rx Instructions: Use As directed QID WITH NOVOLOG furosemide 20 mg tablet 20 mg PO QAM Qty: 90 3RF famotidine 40 mg tablet 40 mg PO BID Qty: 180 3RF gabapentin 300 mg capsule 300 mg PO TID Qty: 270 3RF potassium chloride 10 mEq tablet extended release 10 meq PO QAM Qty: 90 3RF (DME) blood sugar diagnostic Strip See Dose Instructions .ROUTE .MEDSUPPLY Qty: 400 3RF Rx Instructions: TEST FOUR TIMES DAILY; DX CODE- E11.9 loratadine 10 mg tablet 10 mg PO QAM Centrum Silver 0.4-300-250 mg-mcg-mcg tablet 1 tab PO QAM (DME) lancets [OneTouch Delica Lancets] 30 gauge misc See Dose Instructions .ROUTE .MEDSUPPLY Qty: 200 4RF Rx Instructions: As directed QID letrozole [Femara] 2.5 mg Tablet 2.5 mg PO QAM fluticasone propionate [Flonase Allergy Relief] 50 mcg/actuation [place],Suspension 1 - 2 spray INTRANASAL QAM ibuprofen 200 mg tablet 400 mg PO BID losartan 50 mg tablet 50 mg PO DAILY Qty: 30 2RF albuterol sulfate [Ventolin HFA] 90 mcg/actuation HFA aerosol inhaler 2 inh inhalation Q6H PRN (Reason: shortness of breath or wheezing or cough) Qty: 8.5 0RF Rx Instructions: use with spacer device. (DME) Aerochamber MV Spacer See Rx Instructions .Route Qty: 1 0RF Rx Instructions: As directed with albuterol. insulin glargine [Lantus U-100 Insulin] 100 unit/mL solution 64 unit SUBCUT HS Label Comments: 32 units Rx Instructions: 3 month supply insulin aspart U-100 [Novolog U-100 Insulin aspart] 100 unit/mL solution 8 sliding scale dose SUBCUT QID Rx Instructions: using a sliding scale with each meal, on average 8 u with each meal, no more than 25 u daily simvastatin 20 mg tablet 20 mg PO HS Label Comments: AT SUPPER TIME Referrals Referrals: Suzy Barton CRNP [Primary Care Provider] -
[2022-12-03] MEDS ORDERED: SODIUM CHLORIDE 0.9% 500 ML IV SCH (15:45)
[2022-12-03 16:00] LABS: Hematocrit (blood only) 36.9 % (37.0-47.0); Hemoglobin 12.2 g/dl (12.0-16.0); Mean Corpuscular Hemoglobin 30.7 pg (25.0-34.0); Mean Corpuscular Hgb Conc 33.1 g/dL (32.0-36.0); Mean Corpuscular Volume 92.9 fL (80.0-100.0); Mean Platelet Volume 12.8 fL (9.4-12.4); Platelet Count 136 K/uL (130-400); RDW Coefficient of Variation 14.2 % (11.5-14.5); RDW Standard Deviation 47.8 fL (36.4-46.3); Red Blood Count 3.97 M/uL (4.20-5.40); White Blood Count 15.22 K/ul (4.8-10.8)
[2022-12-03 16:02] LABS: Base Excess VBG 2.2 mEq/L; HCO3 VBG 25 mmol/L; Oxygen Saturation VBG 65.4 %; PCO2 VBG 34 mmHg (38-50); PO2 VBG 36 mmHg; pH VBG 7.48 (7.36-7.41)
[2022-12-03 16:53] LABS: Albumin Level 3.5 gm/dl (3.4-5.0); BUN Creatinine Ratio 28.7 (10-20); Bilirubin Direct 0.2 mg/dl (0-0.2); Bilirubin,Total 0.9 mg/dl (0.2-1.0); Calcium 9.5 mg/dl (8.5-10.1); Creatinine Clr Calc Pharmacy 63.4 ml/min; Est GFR (African American) 60.2 ml/min; Magnesium 1.6 mg/dl (1.7-2.4); Potassium 3.7 mmol/L (3.5-5.1); Total Protein 6.5 gm/dl (6.0-8.3)
[2022-12-03 16:56] LABS: Troponin I High Sensitivity 14.5 pg/ml (0-14)
[2022-12-03 17:03] LABS: INR 1.9 (0.9-1.1); Partial Thromboplastin Ratio 3.1; Prothrombin Time 19.3 Seconds (9.0-12.0)
[2022-12-03 17:15] LABS: Partial Thromboplastin Time 84.7 Seconds (21.0-31.0)
[2022-12-03 17:17] LABS: Rouleaux 1+
[2022-12-03 17:18] LABS: Basophils # (auto) 0.04 K/uL (0-0.2); Basophils % (auto) 0.3 %; Immature Granulocytes # (auto) 0.33 K/uL (0.01-0.20); Immature Granulocytes % (auto) 2.2 %; Lymphocytes # (auto) 6.82 K/uL (1.2-3.4); Lymphocytes % (auto) 44.8 %; Monocytes # (auto) 0.91 K/uL (0.11-0.59); Neutrophils # (auto) 7.12 K/uL (1.40-6.50); Neutrophils % (auto) 46.7 %
--- NOTE | 2022-12-03 18:04 | History & Physical Report ---
Date of Service December 03, 2022 Assessment & Plan (1) COVID: Plan: 1st day of symptoms: Nov 25. Day 9 of symptoms on admission. Vaccinated and boosted but never had COVID previously and possible decreased immune reaction to vaccination due to acalabrutinib use. Dexamethasone give last admission and continued for three days after discharge. Increased CRP and worsening symptoms, hypoxia and CXR since then. Will restart on steroids. Solu-medrol given in the ER. Will continue dexamethasone 6mg IV daily. Limited benefit demonstrated for remdesivir at day 9 but given still within 10 days and immunosuppressed state therefore recommend starting - monitor INR closely while on this as can enhance anticoagulant effect. COVID isolation precautions Encourage proning (2) Hypoxia: Plan: 2/2 COVID-19, no sign of secondary bacterial infection Aim O2 sats > 90% Incentive spirometer (3) Hypertension: Plan: Continue furosemide 20 mg p.o. daily and losartan 50 mg p.o. daily (4) Hypomagnesemia: Plan: Mg level 1.6. Mg sulfate 1g IV. Repeat level with AM labs (5) Chronic anticoagulation: Plan: Due to pulmonary embolism in 2013. Continue her usual warfarin dosing - INR mildly low @ 1.9 today. Likely to increase with remdesivir use and will monitor INR daily while on this. (6) Diabetes mellitus: Plan: HbA1c 6.6 in May. We will repeat with a.m. labs. Consult pharmacy for glycemic control during inpatient admission and in the setting of steroid use Will initially start with splitting her usual Lantus dose in half and dosing twice daily @ 32 units NovoLog: --Goal BSG Range: Low 110 mg/dL, High 140 mg/dL --Correction Factor: 25 mg/dL/unit --Carbohydrate ratio = 8 g/unit --BSGs ACHS if eating, q6h if npo (7) COPD (chronic obstructive pulmonary disease): Plan: No acute exacerbation suspected at this time. No prior PFTs found on current version of [employer]. Continue Symbicort or hospital equivalent inhaler on formulary Albuterol as needed (8) CLL (chronic lymphocytic leukemia): Plan: Continue acalabrutinib 100mg PO BID (9) History of breast cancer: Plan: 2013 with recurrence in 2020 Continue letrozole 2.5 mg p.o. daily Plan VTE Prophylaxis - continue on her usual warfarin Diet - T2DM Disposition - admit to med/surg Admission and Anticipated Discharge Date Admission Date: December 03, 2022 History of Present Illness Chief Complaint: Shortness of breath, fatigue, nausea Primary Care Provider: LAURA Delgado Enid Swan is a 72 year old female with history of breast cancer and CLL who presents to the ER with worsening shortness of breath, cough, nausea and fatigue following COVID-19 diagnosis and brief admission on November 28 to 2022. She reports initial symptoms starting November 25 or November 26. She did significantly improve during a hospital admission on dexamethasone. Remdesivir was not started due to initial borderline renal function and subsequent rapid resolution and have hypoxia. She was given a shortened course of 3 days of dexamethasone on discharge. However symptoms started getting worse again yesterday. She is much more fatigued, sleeping the majority of the time, productive cough, ongoing fevers and reduced appetite. reports she may not be taking her regular medications and is not taking her blood sugars regularly. She denies any chest pain, abdominal pain, nasal congestion, sore throat, diarrhea. She has noticed loss of taste and smell. In the emergency room she is requiring 2LPM O2 to maintain O2 sats > 90%. She was given Solu-Medrol 125 mg IV. She was referred to medicine for admission and ongoing management of COVID-19. Allergies Allergy/AdvReac Type Severity Reaction Status Date / Time No Known Allergies Allergy Verified 12/03/22 17:43 Home Medications Medication Instructions Recorded Confirmed Type fluticasone propionate 50 1 - 2 spray intranasal QAM 07/12/18 12/03/22 History mcg/actuation nasal spray,suspension (Flonase Allergy Relief) letrozole 2.5 mg tablet (Femara) 2.5 mg PO QAM 07/12/18 12/03/22 History loratadine 10 mg tablet 10 mg PO QAM 07/11/19 12/03/22 History sduczkwc-hcf-lgzcr acid 0.4 1 tab PO QAM 07/11/19 12/03/22 History mg-lycopene 300 mcg-lutein 250 mcg tablet (Centrum Silver) lancets 30 gauge (OneTouch Delica #200 ea 04/23/20 12/02/22 Rx Lancets) acalabrutinib 100 mg capsule 100 mg PO BID 10/15/20 12/03/22 History (Calquence) budesonide-formoterol HFA 80 2 puff inhalation QAM #30.6 grams 11/22/21 12/03/22 Rx mcg-4.5 mcg/actuation aerosol inhaler (Symbicort) insulin syringe-needle U-100 1 mL #300 ea 01/23/22 12/02/22 Rx 31 gauge x 5/16" (BD Insulin Syringe Ultra-Fine) insulin syringe-needle U-100 0.5 #300 ea 02/25/22 12/02/22 Rx mL 31 gauge x 5/16" (BD Insulin Syringe Ultra-Fine) furosemide 20 mg tablet 20 mg PO QAM #90 tabs 05/01/22 12/03/22 Rx ibuprofen 200 mg tablet 400 mg PO BID Pain 05/27/22 12/03/22 History famotidine 40 mg tablet 40 mg PO BID #180 tabs 09/09/22 12/03/22 Rx magnesium citrate 85 mg chewable 335 mg PO QAM 10/02/22 12/03/22 History tablet gabapentin 300 mg capsule 300 mg PO TID #270 caps 10/21/22 12/03/22 Rx potassium chloride 10 mEq 10 meq PO QAM #90 tabs 10/21/22 12/03/22 Rx tablet,extended release blood sugar diagnostic #400 ea 10/31/22 12/02/22 Rx cyclobenzaprine 10 mg tablet 10 mg PO BID 11/12/22 12/03/22 History insulin aspart U-100 100 unit/mL 8 sliding scale dose subcut QID 11/17/22 12/03/22 History subcutaneous solution (Novolog U-100 Insulin aspart) insulin glargine 100 unit/mL 64 unit subcut HS 11/17/22 12/03/22 History subcutaneous solution (Lantus U-100 Insulin) simvastatin 20 mg tablet 20 mg PO HS 11/17/22 12/03/22 History warfarin 5 mg tablet See Rx Instructions PO UD 11/24/22 12/03/22 History albuterol sulfate 90 mcg/actuation 2 inh inhalation Q6H PRN shortness 11/29/22 12/03/22 Rx aerosol inhaler (Ventolin HFA) of breath or wheezing or cough #8.5 grams inhalational spacing device #1 ea 11/29/22 12/02/22 Rx (Aerochamber MV spacer) losartan 50 mg tablet 50 mg PO DAILY #30 tabs 11/29/22 12/03/22 Rx Past Med/Surg History Medical History (Updated 12/03/22 @ 23:48 by Dariel Gongora MD) Acute bursitis shots in each knee for bursitis or january or february 2022 Acute superficial venous thrombosis of left lower extremity 06/2020. Anemia Atrial fibrillation dx a while ago, following with PCP, no pacer; has seen jackie hamilton 06/2022 no hx cardioversion Breast cancer, right breast (01/30/14) 2013; chemo, Rt mastectomy, 2020 reoccurrence Chronic back pain Chronic lymphocytic leukemia (CLL), B-cell (~03/22/13) chemotherapy ~2017 and currently taking oral chemo COPD (chronic obstructive pulmonary disease) daily inh Degenerative arthritis of knee, bilateral Diabetes mellitus IDDM GERD (gastroesophageal reflux disease) History of adenomatous polyp of colon History of anesthesia reaction SLOW TO WAKE UP PT REPORTS NEEDS FACE MASK FOR OXYGEN, NO NASAL CANNULA - CAN'T TOLERATE/NASAL PASSAGES CLOSE UP History of colon polyps BENIGN Hyperlipidemia Hyperplastic polyp of descending colon Hypertension Lumbar spinal stenosis Lyme disease hx Morbid obesity with BMI of 40.0-44.9, adult On anticoagulant therapy PE (pulmonary embolism) (~03/06/14) hx 2013 post op mastectomy; treated with AC Spinal stenosis of lumbar region with radiculopathy Surgical History History of bilateral tubal ligation History of section X 2 History of colonoscopy with polypectomy History of mastectomy R WITH AXILLARY EXCISION-R ARM RESTRICTION 2013 History of tooth extraction all teeth removed History of vascular access device had placed for chemo--removed in 2013, port put in again on right side 01/02/2021 > no IV chemo at present just oral Port-A-Cath in place (01/02/21) Insertion of Access Port Dr. Low 01/02/2021 Status post epidural steroid injection Family History Father Family history of diabetes mellitus Myocardial infarction Heart disease Hypertension Mother Family history of diabetes mellitus Brother Family history of diabetes mellitus Cancer Grandmother Family history of diabetes mellitus Grandfather Family history of diabetes mellitus Aunt Cancer Other No family history of adverse response to anesthesia Denies family history of Ovarian cancer Prostate cancer Breast cancer Colorectal cancer Social History Smoking Status: Never smoker Second Hand Exposure: Yes ( smoked until 4 years ago); Hx Alcohol Use: No Hx Substance Use: No Preferred Language: Kazakh Communication Ability: Effective Hearing Ability: Normal 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 Beliefs That Will Affect Care: None marital status: Current Living Situation: Spouse Current Living Situation Comment: [facility] current occupational status: retired How many Children do You have: 2 Feels Safe at Home: Yes Childhood Exposure to Second-Hand Smoke: No caffeine: Yes Dental Care, Regularly: No Physical Activity Frequency: Daily Seatbelt Use: always Sunscreen Use: No Assistive Devices: None Review of Systems Review of Systems: All systems reviewed & are unremarkable except as noted in HPI & below Physical Exam Constitutional: well developed; + not well nourished and no acute distress Eyes: PERRL, conjunctivae normal, anicteric sclerae Respiratory: normal respiratory effort and able to speak in complete sentences; no respiratory distress, no labored breathing, does not use accessory muscles, not tachypneic, expiratory phase not prolonged and no stridor Auscultation: + diminished lung sounds (Bibasal) and + crackles (Fine crackles posteriorly throughout); breath sounds present, no rales, no rhonchi and no wheezes Cardiovascular: Rate/Rhythm: regular rate and regular rhythm Heart Sounds: no murmur Extremities: normal capillary refill and + pedal edema (2+); no calf tenderness Gastrointestinal (Abdomen): normal bowel sounds, soft, nontender, no hepatosplenomegaly Musculoskeletal: no cyanosis or clubbing, extremities motor strength 5/5 Skin: no rashes, warm and dry (Bilateral lower extremity venous stasis changes without cellulitis) Neurologic: moves all extremities and awake; no focal motor deficits and not confused Psychiatric: A+Ox3, euthymic affect Genitourinary: no CVA tenderness Results & Data Results & Data ([facility]) Vital Signs (Past 12 Hours) Vital Signs Temp Pulse Pulse Resp BP BP Pulse Ox 12/03/22 17:00 83 24 117/57 L 94 12/03/22 15:47 91 H 22 127/57 L 96 12/03/22 15:09 12/03/22 15:08 88 L 12/03/22 15:02 38.2 C H 88 22 118/75 88 L O2 Del Method O2 Flow Rate 12/03/22 17:00 Nasal Cannula 2 12/03/22 15:47 Nasal Cannula 2 12/03/22 15:09 Nasal Cannula 2 12/03/22 15:08 Room Air 12/03/22 15:02 Room Air Laboratory Results Abnormal lab results 12/03/22 12/03/22 12/03/22 Range/Units 15:35 15:35 15:35 WBC 15.22 H (4.8-10.8) K/ul RBC 3.97 L (4.20-5.40) M/uL Hct 36.9 L (37.0-47.0) % RDW Std Deviation 47.8 H (36.4-46.3) fL MPV 12.8 H (9.4-12.4) fL Neut # (Auto) 7.12 H (1.40-6.50) K/uL Lymph # (Auto) 6.82 H (1.2-3.4) K/uL [place] # (Auto) 0.91 H (0.11-0.59) K/uL Immature Gran # (Auto) 0.33 H (0.01-0.20) K/uL PT 19.3 H (9.0-12.0) Seconds INR 1.9 H (0.9-1.1) APTT 84.7 H* (21.0-31.0) Seconds VBG pH (7.36-7.41) VBG pCO2 (38-50) mmHg BUN 31 H (6-23) mg/dl BUN/Creatinine Ratio 28.7 H (10-20) Glucose 162 H (70-99(Fasting)) mg/dl Magnesium 1.6 L (1.7-2.4) mg/dl Troponin I High Sens 14.5 H (0-14) pg/ml SARS-CoV-2, RNA, NAAT (NEGATIVE) 12/03/22 12/03/22 Range/Units 15:35 15:48 WBC (4.8-10.8) K/ul RBC (4.20-5.40) M/uL Hct (37.0-47.0) % RDW Std Deviation (36.4-46.3) fL MPV (9.4-12.4) fL Neut # (Auto) (1.40-6.50) K/uL Lymph # (Auto) (1.2-3.4) K/uL [place] # (Auto) (0.11-0.59) K/uL Immature Gran # (Auto) (0.01-0.20) K/uL PT (9.0-12.0) Seconds INR (0.9-1.1) APTT (21.0-31.0) Seconds VBG pH 7.48 H (7.36-7.41) VBG pCO2 34 L (38-50) mmHg BUN (6-23) mg/dl BUN/Creatinine Ratio (10-20) Glucose (70-99(Fasting)) mg/dl Magnesium (1.7-2.4) mg/dl Troponin I High Sens (0-14) pg/ml SARS-CoV-2, RNA, NAAT POSITIVE A* (NEGATIVE) Diagnostic Findings XR chest 1V portable HISTORY: 72 years-old Female Sepsis acute sepsis COMPARISON: Chest radiograph 11/27/2022 TECHNIQUE: AP view of the chest FINDINGS: Cardiac silhouette is enlarged. Pulmonary vascular congestion. Unchanged positioning of the right pectoral Mcvses-r-Jthm catheter. No pneumothorax. Pulmonary vascular congestion. Right greater than left bilateral interstitial and alveolar opacities. Trace pleural effusions with hypoinflation. No pneumothorax. Mild right hemidiaphragmatic elevation. Bones appear grossly intact. IMPRESSION: 1. Right greater than left mixed interstitial and alveolar opacities suspicious for multifocal pneumonia. 2. Cardiomegaly with pulmonary vascular congestion. Medications Administered ER medications given: Solu-Medrol 125 mg IV Normal saline 500 mL @ 125ml/hr (subsequently discontinued by myself) Acetaminophen 1g p.o. ECG Indication: SOB/dyspnea Rhythm: normal sinus Findings: + RBBB (Incomplete) Comparison ECG Date: from (November 27, 2022) Change: the following changes noted (PACs no longer present) Code Status & VTE Plan Code Status Full VTE Prophylaxis Plan VTE Prophylaxis will be ordered: Yes PG Care Time/CCT Total # of Minutes Spent Total Time Spent with Patient: Total time spent is greater than 50% in coordination of care (as documented) at patient's floor/unit and/or counseling patient: Coding Level of Care Code 84218 INT INP/OBS CARE MIN Diagnoses COVID U07.1 Hypoxia R09.02 Hypertension I10 Hypomagnesemia E83.42 Chronic anticoagulation Z79.01 Diabetes mellitus E11.9 Diabetes mellitus complication status: without complication Diabetes mellitus longwall machine operator helper insulin use: unspecified senior living insulin use status Diabetes mellitus type: type 2 COPD (chronic obstructive pulmonary disease) J44.9 CLL (chronic lymphocytic leukemia) C91.10 History of breast cancer Z85.3 (1) Diabetes mellitus Diabetes mellitus complication status: without complication Diabetes mellitus senior living insulin use: unspecified longwall machine operator helper insulin use status Diabetes mellitus type: type 2 Qualified Code(s): E11.9 - Type 2 diabetes mellitus without complications
[2022-12-03 19:30] LABS: C Reactive Protein 18.05 mg/dl (0-0.5)
[2022-12-03 20:38] LABS: Smudge Cells Present
[2022-12-03] MEDS ORDERED: CARBOHYDRATES FOR HYPOGLYCEMIA PO PRN (23:53)
[2022-12-03] MEDS ORDERED: GLUCOSE 10 TAB/TUBE PO PRN (23:53)
[2022-12-03] MEDS ORDERED: ALBUTEROL HFA 8 GM INHALER INH PRN (23:53)
[2022-12-03] MEDS ORDERED: GLUCAGON FOR INJ 1 MG VIAL SQ PRN (23:53)
[2022-12-03] MEDS ORDERED: WARFARIN SOD 5 MG TAB PO SCH (23:53)
[2022-12-03] MEDS ORDERED: GLUCOSE 40% GEL 15 GM TUBE PO PRN (23:53)
[2022-12-03] MEDS ORDERED: ACALABRUTINIB 100 MG PO SCH (23:53)
[2022-12-03] MEDS ORDERED: PHARMACY GLYCEMIC MGMT CONSULT PRN (23:53)
[2022-12-03] MEDS ORDERED: DEXTROSE 50% 50 ML SYRINGE IV PRN (23:53)
[2022-12-03] MEDS ORDERED: MAGNESIUM SULFATE / D5W 1 GM/100 ML BAG IV ONE (23:53)
[2022-12-04] MEDS ORDERED: WARFARIN SOD 10 MG TAB PO ONE (00:15)
[2022-12-04] MEDS ORDERED: LANTUS PER UNIT CHARGE SQ SCH ×2 (00:15→21:00)
[2022-12-04] MEDS ORDERED: REMDESIVIR 200 MG in SODIUM CHLORIDE 0.9% 210 ML IV ONE (00:30)
[2022-12-04] MEDS: GABAPENTIN 300 MG CAP PO SCH ×4 (00:34→21:46)
[2022-12-04] MEDS: IBUPROFEN 200 MG TAB PO SCH ×3 (00:36→21:47)
[2022-12-04] MEDS: FAMOTIDINE 40 MG TABLET PO SCH ×2 (00:37→10:11)
[2022-12-04] MEDS: SIMVASTATIN 20 MG TAB PO SCH ×2 (00:37→21:47)
[2022-12-04] MEDS: INSULIN ASPART PER UNIT SC SCH ×5 (00:46→21:53)
[2022-12-04] MEDS: CYCLOBENZAPRINE HCL 10 MG TAB PO SCH ×3 (02:56→21:59)
[2022-12-04] MEDS ORDERED: INSULIN ASPART PER UNIT SC SCH (04:00)
[2022-12-04] MEDS ORDERED: INSULIN HUMAN REGULAR PER UNIT 10 UNITS in SYRINGE 9.9 ML IV ONE (04:45)
[2022-12-04 08:56] LABS: Estimated Average Glucose 166 mg/dl; Hemoglobin A1C 7.4 % (4.5-5.6)
[2022-12-04 09:00] LABS: Hematocrit (blood only) 35.9 % (37.0-47.0); Hemoglobin 11.7 g/dl (12.0-16.0); Mean Corpuscular Hemoglobin 30.3 pg (25.0-34.0); Mean Corpuscular Hgb Conc 32.6 g/dL (32.0-36.0); Mean Platelet Volume 12.8 fL (9.4-12.4); Platelet Count 125 K/uL (130-400); RDW Coefficient of Variation 14.2 % (11.5-14.5); RDW Standard Deviation 48.5 fL (36.4-46.3); Red Blood Count 3.86 M/uL (4.20-5.40); White Blood Count 14.33 K/ul (4.8-10.8)
[2022-12-04] MEDS ORDERED: FLUTICASONE/VILANTEROL 100/25MCG 14 PUFFS/INHALER INH SCH (09:00)
[2022-12-04] MEDS ORDERED: MAGNESIUM CITRATE PO SCH (09:00)
[2022-12-04 09:02] LABS: Albumin Globulin Ratio 1.1 (0.9-2); Albumin Level 3.3 gm/dl (3.4-5.0); BUN Creatinine Ratio 41.4 (10-20); Bilirubin,Total 0.4 mg/dl (0.2-1.0); Calcium 8.7 mg/dl (8.5-10.1); Creatinine Clr Calc Pharmacy 69.2 ml/min; Est GFR (African American) 66.9 ml/min; Est GFR (Non-African American) 57.7 ml/min; Globulin 2.9 gm/dl (2.5-4.0); Magnesium 2.2 mg/dl (1.7-2.4); Potassium 3.9 mmol/L (3.5-5.1); Total Protein 6.2 gm/dl (6.0-8.3)
[2022-12-04 09:03] LABS: INR 1.7 (0.9-1.1); Partial Thromboplastin Ratio 1.6; Partial Thromboplastin Time 44.7 Seconds (21.0-31.0); Prothrombin Time 17.2 Seconds (9.0-12.0)
--- NOTE | 2022-12-04 09:23 | Hospitalist Progress Note ---
Date of Service December 04, 2022 Assessment & Plan (1) COVID: Plan: 1st day of symptoms: Nov 25. Day 10 of symptoms currently. Vaccinated and boosted but never had COVID previously and possible decreased immune reaction to vaccination due to acalabrutinib use. Dexamethasone give last admission and continued for three days after discharge. Increased CRP and worsening symptoms, hypoxia. Will restart on steroids. Solu-medrol given in the ER. Will continue dexamethasone 6mg IV daily. Limited benefit demonstrated for remdesivir at day 9 but given still within 10 days and immunosuppressed state therefore recommend starting - monitor INR closely while on this as can enhance anticoagulant effect. COVID isolation precautions Encourage proning (2) Pneumonia: Plan: Likely secondary bacterial pneumonia due to Covid - Check MRSA swab - Start Cefepime 2gm IV q 8 hours - If MRSA swab is + will need to add Vanco (3) Hypoxia: Plan: 2/ COVID-19 Currently on RA 92% Aim O2 sats > 90% Incentive spirometer Added Flutter Mucinex 1200 BID prn (4) Hypertension: Plan: Continue furosemide 20 mg p.o. daily and losartan 50 mg p.o. daily (5) Hypomagnesemia: Plan: Mg level 1.6. Mg sulfate 1g IV. Repeat level today normal at 2.2 Continue to monitor (6) Chronic anticoagulation: Plan: Due to pulmonary embolism in 2013. Continue her usual warfarin dosing - INR mildly low @ 1.9 today. Likely to increase with remdesivir use and will monitor INR daily while on this. (7) Diabetes mellitus: Plan: HbA1c 6.6 in May. Currently 6.0 Consult pharmacy for glycemic control during inpatient admission and in the setting of steroid use Will initially start with splitting her usual Lantus dose in half and dosing twice daily @ 32 units NovoLog: --Goal BSG Range: Low 110 mg/dL, High 140 mg/dL --Correction Factor: 25 mg/dL/unit --Carbohydrate ratio = 8 g/unit --BSGs ACHS if eating, q6h if npo (8) COPD (chronic obstructive pulmonary disease): Plan: No acute exacerbation suspected at this time. No prior PFTs found on current version of [place]er[place]. D/C Breo (patient states tried in the past and had a sore mouth) Continue Symbicort Albuterol as needed flutter given (9) CLL (chronic lymphocytic leukemia): Plan: Continue acalabrutinib 100mg PO BID (10) History of breast cancer: Plan: 2013 with recurrence in 2020 Continue letrozole 2.5 mg p.o. daily (11) Oral candidiasis: Plan: Possibly secondary to steroid usage and possibly also the Breo Nystatin 5ml swish gargle and swallow QID Plan VTE Prophylaxis - continue on her usual warfarin Diet - T2DM Disposition - admit to med/surg Pepcid BID to be given at 0600 AND 1800 ( 2hours prior to the [place]) for GI prophylaxis Admission and Anticipated Discharge Date Admission Date: December 03, 2022 Subjective Patient was awake sitting up in bed. She was coughing at times and stated though tht she is able to cough some mucus up at times. Discussed her CXR now is revealing some pneumonia. She is complaining of her mouth being sore and thinks she has a yeast infection in her mouth. She states she take symbicort at home and last time her PCP tried to rx the Breo it made her mouth sore. She is asking to stop the breo and go back to the Symbicort. She denies any chest pain, dyspnea or SOB. She has some mild nausea but no vomiting or diarrhea. Review of Systems Review of Systems: All other ROS negative unless stated + above Physical Exam Constitutional: WD/WN, vitals as above ENMT: oropharynx with candidiasis on tongue and sides of mouth, no candidiasis in posterior oropharynx Neck: trachea midline, no thyromegaly Respiratory: mild lower lobe crackles R>L no rhonchi or rales noted Cardiovascular: RRR, no murmur, no edema Gastrointestinal (Abdomen): normal bowel sounds, soft, nontender, no hepatosplenomegaly Neurologic: PERRL, EOMI, accommodation nl, no face palsy, no dysarthria Psychiatric: A+Ox3, euthymic affect Results & Data Results & Data ([facility]) Vital Signs (Past 12 Hours) Vital Signs Temp Pulse Pulse Resp BP Pulse Ox O2 Del Method 12/04/22 08:12 36.4 C L 67 20 121/75 92 Nasal Cannula 12/03/22 23:59 Nasal Cannula 12/03/22 23:00 67 126/71 93 12/03/22 22:00 36.8 C O2 Flow Rate 12/04/22 08:12 4 12/03/22 23:59 4 12/03/22 23:00 12/03/22 22:00 Laboratory Results Abnormal lab results 12/03/22 12/03/22 12/03/22 Range/Units 15:35 15:35 15:35 WBC 15.22 H (4.8-10.8) K/ul RBC 3.97 L (4.20-5.40) M/uL Hgb (12.0-16.0) g/dl Hct 36.9 L (37.0-47.0) % RDW Std Deviation 47.8 H (36.4-46.3) fL Plt Count (130-400) K/uL MPV 12.8 H (9.4-12.4) fL Neut # (Auto) 7.12 H (1.40-6.50) K/uL Lymph # (Auto) 6.82 H (1.2-3.4) K/uL [place] # (Auto) 0.91 H (0.11-0.59) K/uL Immature Gran # (Auto) 0.33 H (0.01-0.20) K/uL PT 19.3 H (9.0-12.0) Seconds INR 1.9 H (0.9-1.1) APTT 84.7 H* (21.0-31.0) Seconds VBG pH (7.36-7.41) VBG pCO2 (38-50) mmHg Chloride (98-107) mmol/L BUN 31 H (6-23) mg/dl BUN/Creatinine Ratio 28.7 H (10-20) Glucose 162 H (70-99(Fasting)) mg/dl POC Glucose (70-99) mg/dl Hemoglobin A1c (4.5-5.6) % Magnesium 1.6 L (1.7-2.4) mg/dl Troponin I High Sens 14.5 H (0-14) pg/ml C-Reactive Protein 18.05 H (0-0.5) mg/dl Albumin (3.4-5.0) gm/dl SARS-CoV-2, RNA, NAAT (NEGATIVE) 12/03/22 12/03/22 12/04/22 Range/Units 15:35 15:48 00:30 WBC (4.8-10.8) K/ul RBC (4.20-5.40) M/uL Hgb (12.0-16.0) g/dl Hct (37.0-47.0) % RDW Std Deviation (36.4-46.3) fL Plt Count (130-400) K/uL MPV (9.4-12.4) fL Neut # (Auto) (1.40-6.50) K/uL Lymph # (Auto) (1.2-3.4) K/uL [place] # (Auto) (0.11-0.59) K/uL Immature Gran # (Auto) (0.01-0.20) K/uL PT (9.0-12.0) Seconds INR (0.9-1.1) APTT (21.0-31.0) Seconds VBG pH 7.48 H (7.36-7.41) VBG pCO2 34 L (38-50) mmHg Chloride (98-107) mmol/L BUN (6-23) mg/dl BUN/Creatinine Ratio (10-20) Glucose (70-99(Fasting)) mg/dl POC Glucose 357 H* (70-99) mg/dl Hemoglobin A1c (4.5-5.6) % Magnesium (1.7-2.4) mg/dl Troponin I High Sens (0-14) pg/ml C-Reactive Protein (0-0.5) mg/dl Albumin (3.4-5.0) gm/dl SARS-CoV-2, RNA, NAAT POSITIVE A* (NEGATIVE) 12/04/22 12/04/22 12/04/22 Range/Units 04:26 04:28 07:57 WBC 14.33 H (4.8-10.8) K/ul RBC 3.86 L (4.20-5.40) M/uL Hgb 11.7 L (12.0-16.0) g/dl Hct 35.9 L (37.0-47.0) % RDW Std Deviation 48.5 H (36.4-46.3) fL Plt Count 125 L (130-400) K/uL MPV 12.8 H (9.4-12.4) fL Neut # (Auto) (1.40-6.50) K/uL Lymph # (Auto) (1.2-3.4) K/uL [place] # (Auto) (0.11-0.59) K/uL Immature Gran # (Auto) (0.01-0.20) K/uL PT (9.0-12.0) Seconds INR (0.9-1.1) APTT (21.0-31.0) Seconds VBG pH (7.36-7.41) VBG pCO2 (38-50) mmHg Chloride (98-107) mmol/L BUN (6-23) mg/dl BUN/Creatinine Ratio (10-20) Glucose (70-99(Fasting)) mg/dl POC Glucose 356 H* 398 H* (70-99) mg/dl Hemoglobin A1c (4.5-5.6) % Magnesium (1.7-2.4) mg/dl Troponin I High Sens (0-14) pg/ml C-Reactive Protein (0-0.5) mg/dl Albumin (3.4-5.0) gm/dl SARS-CoV-2, RNA, NAAT (NEGATIVE) 12/04/22 12/04/22 12/04/22 Range/Units 07:57 07:57 07:57 WBC (4.8-10.8) K/ul RBC (4.20-5.40) M/uL Hgb (12.0-16.0) g/dl Hct (37.0-47.0) % RDW Std Deviation (36.4-46.3) fL Plt Count (130-400) K/uL MPV (9.4-12.4) fL Neut # (Auto) (1.40-6.50) K/uL Lymph # (Auto) (1.2-3.4) K/uL [place] # (Auto) (0.11-0.59) K/uL Immature Gran # (Auto) (0.01-0.20) K/uL PT 17.2 H (9.0-12.0) Seconds INR 1.7 H (0.9-1.1) APTT 44.7 H (21.0-31.0) Seconds VBG pH (7.36-7.41) VBG pCO2 (38-50) mmHg Chloride 109 H (98-107) mmol/L BUN 41 H (6-23) mg/dl BUN/Creatinine Ratio 41.4 H (10-20) Glucose 253 H (70-99(Fasting)) mg/dl POC Glucose (70-99) mg/dl Hemoglobin A1c 7.4 H (4.5-5.6) % Magnesium (1.7-2.4) mg/dl Troponin I High Sens (0-14) pg/ml C-Reactive Protein (0-0.5) mg/dl Albumin 3.3 L (3.4-5.0) gm/dl SARS-CoV-2, RNA, NAAT (NEGATIVE) 12/04/22 Range/Units 08:01 WBC (4.8-10.8) K/ul RBC (4.20-5.40) M/uL Hgb (12.0-16.0) g/dl Hct (37.0-47.0) % RDW Std Deviation (36.4-46.3) fL Plt Count (130-400) K/uL MPV (9.4-12.4) fL Neut # (Auto) (1.40-6.50) K/uL Lymph # (Auto) (1.2-3.4) K/uL [place] # (Auto) (0.11-0.59) K/uL Immature Gran # (Auto) (0.01-0.20) K/uL PT (9.0-12.0) Seconds INR (0.9-1.1) APTT (21.0-31.0) Seconds VBG pH (7.36-7.41) VBG pCO2 (38-50) mmHg Chloride (98-107) mmol/L BUN (6-23) mg/dl BUN/Creatinine Ratio (10-20) Glucose (70-99(Fasting)) mg/dl POC Glucose 253 H (70-99) mg/dl Hemoglobin A1c (4.5-5.6) % Magnesium (1.7-2.4) mg/dl Troponin I High Sens (0-14) pg/ml C-Reactive Protein (0-0.5) mg/dl Albumin (3.4-5.0) gm/dl SARS-CoV-2, RNA, NAAT (NEGATIVE) Diagnostic Findings Chest X-Ray 12/03/22 15:06 XR chest 1V portable HISTORY: 72 years-old Female Sepsis acute sepsis COMPARISON: Chest radiograph 11/27/2022 TECHNIQUE: AP view of the chest FINDINGS: Cardiac silhouette is enlarged. Pulmonary vascular congestion. Unchanged positioning of the right pectoral [id number] catheter. No pneumothorax. Pulmonary vascular congestion. Right greater than left bilateral interstitial and alveolar opacities. Trace pleural effusions with hypoinflation. No pneumothorax. Mild right hemidiaphragmatic elevation. Bones appear grossly intact. IMPRESSION: 1. Right greater than left mixed interstitial and alveolar opacities suspicious for multifocal pneumonia. 2. Cardiomegaly with pulmonary vascular congestion. ACT 112: Negative or not required by law. The above report was generated using voice recognition software. It may contain grammatical, syntax or spelling errors. Electronically signed by: Moe Leonard M.D. 12/03/2022 3:31 PM PG Care Time/CCT Total # of Minutes Spent Total Time Spent with Patient: Total time spent is greater than 50% in coordination of care (as documented) at patient's floor/unit and/or counseling patient: Coding Level of Care Code 73845 SUB INP/OBS CARE 235MIN Diagnoses COVID U07.1 Pneumonia J18.9 Laterality: unspecified laterality Lung location: unspecified part of lung Pneumonia type: due to unspecified organism Hypoxia R09.02 Hypertension I10 Hypomagnesemia E83.42 Chronic anticoagulation Z79.01 Diabetes mellitus E11.9 Diabetes mellitus complication status: without complication Diabetes mellitus mcc insulin use: unspecified mcc insulin use status Diabetes mellitus type: type 2 COPD (chronic obstructive pulmonary disease) J44.9 CLL (chronic lymphocytic leukemia) C91.10 History of breast cancer Z85.3 Oral candidiasis B37.0 (1) Diabetes mellitus Diabetes mellitus complication status: without complication Diabetes mellitus mcc insulin use: unspecified mcc insulin use status Diabetes mellitus type: type 2 Qualified Code(s): E11.9 - Type 2 diabetes mellitus without complications (2) Pneumonia Laterality: unspecified laterality Lung location: unspecified part of lung Pneumonia type: due to unspecified organism Qualified Code(s): J18.9 - Pneumonia, unspecified organism
[2022-12-04 09:48] LABS: Basophils # (auto) 0.03 K/uL (0-0.2); Basophils % (auto) 0.2 %; Echinocytes 1+; Immature Granulocytes # (auto) 0.19 K/uL (0.01-0.20); Immature Granulocytes % (auto) 1.3 %; Lymphocytes # (auto) 7.37 K/uL (1.2-3.4); Lymphocytes % (auto) 51.4 %; Monocytes # (auto) 0.45 K/uL (0.11-0.59); Monocytes % (auto) 3.1 %; Neutrophils # (auto) 6.29 K/uL (1.40-6.50)
[2022-12-04] MEDS: LETROZOLE 2.5 MG TAB PO SCH (10:03)
[2022-12-04] MEDS: LOSARTAN POTASSIUM 50 MG TAB PO SCH (10:04)
[2022-12-04] MEDS: FUROSEMIDE 20 MG TAB PO SCH (10:04)
[2022-12-04] MEDS: LORATADINE 10 MG TAB PO SCH (10:04)
[2022-12-04] MEDS: POTASSIUM CHLORIDE 10 MEQ TABCR PO SCH (10:04)
[2022-12-04] MEDS: FLUTICASONE PROPIONATE NA SPR 16 GM BTL NAE SCH (10:05)
[2022-12-04] MEDS: dexAMETHasone 6 MG in SYRINGE 0 ML IV SCH (10:06)
[2022-12-04] MEDS: INSULIN HUMAN NPH SC SCH (10:06)
[2022-12-04] MEDS: ACALABRUTINIB PO SCH ×2 (10:11→21:46)
--- NOTE | 2022-12-04 12:26 | Electrocardiogram Report ---
Test Reason : Blood Pressure : / mmHG Vent. Rate : 089 BPM Atrial Rate : 089 BPM P-R Int : 182 ms QRS Dur : 092 ms QT Int : 376 ms P-R-T Axes : 048 -05 036 degrees QTc Int : 457 ms Normal sinus rhythm Incomplete right bundle branch block Moderate voltage criteria for LVH, may be normal variant Borderline ECG When compared with ECG of 27-NOV-2022 08:16, Premature atrial complexes are no longer Present Confirmed by Mino Haas ([id number]) on 12/04/2022 12:26:27 PM Referred By: Confirmed By:Mino Haas
--- NOTE | 2022-12-04 13:06 | Pharmacy Report ---
Pharmacy Glycemic Short Note 2 - Date of Service December 04, 2022 - Glycemic Short BSG Results (Last 24 hours): 12/03/22 12/04/22 12/04/22 15:35 00:30 04:26 Glucose 162 H POC Glucose 357 H* 356 H* 12/04/22 12/04/22 12/04/22 04:28 07:57 08:01 Glucose 253 H POC Glucose 398 H* 253 H 12/04/22 12/04/22 11:33 11:34 Glucose POC Glucose 330 H* 297 H OUTPATIENT ANTIDIABETIC REGIMEN: * Lantus 64 units SQ HS * Novolog SS + 8 units QID * HbA1c = 7.4% on 12/04/22 ASSESSMENT: * 72 y/o F admitted for worsening hypoxia from Covid. Patient is on an immunosuppressant for CLL. She was admitted last week for 2 days for covid but now with worsening symptoms. * She has history of diabetes managed at home on basal and bolus insulin. Will continue same. * IV Solu medrol 125 mg, one dose, given yesterday in the ED caused BSG to trend up above 300 mg/dl. Today, she is started on IV Dexamethasone 6 mg daily. * Basal Lantus 50 units (slightly reduced from home dose) given last night. How ever, fasting BSG was still high today at 253 mg/dl. Will increase basal dose tonight. * Added NPH insulin also this morning. Utilized dose of 0.3 unit/kg using adjusted body wt. * BSGs trended up to 297 pre-lunch. Expect this to trend down by dinner. * Novolog was ordered based on wt and stress of 3 yesterday. Continued the same today. PLAN FOR INPATIENT GLYCEMIC CONTROL: * Basal insulin * Lantus 50 units SQ last night x1 * Lantus 64 units SQ HS starting today * Bolus insulin * NovoLog per scale ACHS or Q6hrs while NPO * Goal Range: Low 110 mg/dL - High 140 mg/dL * Correction Factor: 15 mg/dL/unit * Nutritional / Prandial insulin per carb ratio of 1 unit per 5 grams CHO consumed
[2022-12-04] MEDS ORDERED: WARFARIN SOD 7.5 MG TAB PO SCH (16:00)
[2022-12-04] MEDS: CEFEPIME 2,000 MG in SYRINGE 0 ML IV SCH ×2 (17:51→23:11)
[2022-12-04] MEDS ORDERED: FAMOTIDINE 40 MG TABLET PO ONE (18:00)
[2022-12-04] MEDS: guaiFENesin 600 MG TABCR PO SCH (21:46)
[2022-12-04] MEDS: NYSTATIN SUSP 500,000 U/5 ML UDC PO SCH (21:47)
[2022-12-04] MEDS: LANTUS PER UNIT CHARGE SQ SCH (21:53)
[2022-12-05] MEDS ORDERED: INSULIN ASPART PER UNIT SC SCH (02:00)
[2022-12-05] MEDS: CEFEPIME 2,000 MG in SYRINGE 0 ML IV SCH ×3 (07:44→23:21)
--- NOTE | 2022-12-05 08:25 | Hospitalist Progress Note ---
Date of Service December 05, 2022 Assessment & Plan (1) COVID: Plan: 1st day of symptoms: Nov 25. Day 10 of symptoms currently. Vaccinated and boosted but never had COVID previously and possible decreased immune reaction to vaccination due to acalabrutinib use. Dexamethasone give last admission and continued for three days after discharge. Increased CRP and worsening symptoms, hypoxia. Will restart on steroids. Solu-medrol given in the ER. Will continue dexamethasone 6mg IV daily. Limited benefit demonstrated for remdesivir at day 9 but given still within 10 days and immunosuppressed state therefore recommend starting - monitor INR closely while on this as can enhance anticoagulant effect. COVID isolation precautions Encourage proning (2) Pneumonia: Plan: Likely secondary bacterial pneumonia due to Covid - MRSA swab Negative, no need to add Vanco - Continue Cefepime 2gm IV q 8 hours (3) Hypoxia: Plan: 2/2 COVID-19 Currently on 4L and saturating at 96% Aim O2 sats > 90% Incentive spirometer Added Flutter Mucinex 1200 q12H prn (4) Hypertension: Plan: Continue furosemide 20 mg p.o. daily and losartan 50 mg p.o. daily (5) Hypomagnesemia: Plan: Replaced on admission Labs today pending Continue to monitor (6) Chronic anticoagulation: Plan: Due to pulmonary embolism in 2013. INR today elevated at 3.1 Hold coumadin Continue to check INR daily. (7) Diabetes mellitus: Plan: HbA1c 6.6 in May. Currently 7.4 Consult pharmacy for glycemic control during inpatient admission and in the setting of steroid use Will initially start with splitting her usual Lantus dose in half and dosing twice daily @ 32 units NovoLog: --Goal BSG Range: Low 110 mg/dL, High 140 mg/dL --Correction Factor: 25 mg/dL/unit --Carbohydrate ratio = 8 g/unit --BSGs ACHS if eating, q6h if npo (8) COPD (chronic obstructive pulmonary disease): Plan: No acute exacerbation suspected at this time. No prior PFTs found on current version of [place]. D/C Breo (patient states tried in the past and had a sore mouth) Continue Symbicort (home medication) Albuterol as needed flutter given (9) CLL (chronic lymphocytic leukemia): Plan: Continue acalabrutinib 100mg PO BID (10) History of breast cancer: Plan: 2013 with recurrence in 2020 Continue letrozole 2.5 mg p.o. daily (11) Oral candidiasis: Plan: Possibly secondary to steroid usage and possibly also the Breo Nystatin 5ml swish gargle and swallow QID Plan VTE Prophylaxis - continue on her usual warfarin Diet - T2DM Disposition - admit to med/surg Pepcid BID to be given at noon and midnight ( 2hours prior to the [place]) for GI prophylaxis Admission and Anticipated Discharge Date Admission Date: December 03, 2022 Subjective Patient is awake sitting up in bed and states she is feeling some better today. She is still coughing and the cough is more productive. She is feeling better off the Breo and back on her home Symbicort She states her tongue and throat are less sore. She states she still feels very weak and is afraid to go home just yet and have to come back Review of Systems Review of Systems: All other ROS negative unless stated + above Physical Exam Constitutional: WD/WN, vitals as above Neck: trachea midline, no thyromegaly Respiratory: Much more air exchange today compared to yesterday, no W/R/R noted Cardiovascular: RRR, no murmur, no edema Gastrointestinal (Abdomen): normal bowel sounds, soft, nontender, no hepatosplenomegaly Neurologic: PERRL, EOMI, accommodation nl, no face palsy, no dysarthria Psychiatric: A+Ox3, euthymic affect Results & Data Results & Data ([facility]) Vital Signs (Past 12 Hours) Vital Signs Temp Pulse Resp BP Pulse Ox O2 Del Method O2 Flow Rate 12/04/22 21:03 36.7 C 75 20 132/78 94 Nasal Cannula 4 Laboratory Results Abnormal lab results 12/04/22 12/04/22 12/05/22 Range/Units 17:09 21:01 02:05 WBC (4.8-10.8) K/ul RBC (4.20-5.40) M/uL Hgb (12.0-16.0) g/dl Hct (37.0-47.0) % RDW Std Deviation (36.4-46.3) fL MPV (9.4-12.4) fL PT (9.0-12.0) Seconds INR (0.9-1.1) Chloride (98-107) mmol/L BUN (6-23) mg/dl Creatinine (0.6-1.2) mg/dl BUN/Creatinine Ratio (10-20) Glucose (70-99(Fasting)) mg/dl POC Glucose 134 H 194 H 125 H (70-99) mg/dl C-Reactive Protein (0-0.5) mg/dl Albumin (3.4-5.0) gm/dl 12/05/22 12/05/22 12/05/22 Range/Units 08:26 08:29 08:29 WBC (4.8-10.8) K/ul RBC (4.20-5.40) M/uL Hgb (12.0-16.0) g/dl Hct (37.0-47.0) % RDW Std Deviation (36.4-46.3) fL MPV (9.4-12.4) fL PT 30.6 H (9.0-12.0) Seconds INR 3.1 H (0.9-1.1) Chloride 110 H (98-107) mmol/L BUN 54 H (6-23) mg/dl Creatinine 1.30 H D (0.6-1.2) mg/dl BUN/Creatinine Ratio 41.5 H (10-20) Glucose 153 H (70-99(Fasting)) mg/dl POC Glucose 150 H (70-99) mg/dl C-Reactive Protein 6.43 H (0-0.5) mg/dl Albumin 3.2 L (3.4-5.0) gm/dl 12/05/22 12/05/22 Range/Units 08:29 12:40 WBC 23.16 H (4.8-10.8) K/ul RBC 3.88 L (4.20-5.40) M/uL Hgb 11.9 L (12.0-16.0) g/dl Hct 36.0 L (37.0-47.0) % RDW Std Deviation 48.5 H (36.4-46.3) fL MPV 12.8 H (9.4-12.4) fL PT (9.0-12.0) Seconds INR (0.9-1.1) Chloride (98-107) mmol/L BUN (6-23) mg/dl Creatinine (0.6-1.2) mg/dl BUN/Creatinine Ratio (10-20) Glucose (70-99(Fasting)) mg/dl POC Glucose 284 H (70-99) mg/dl C-Reactive Protein (0-0.5) mg/dl Albumin (3.4-5.0) gm/dl PG Care Time/CCT Total # of Minutes Spent Total Time Spent with Patient: Total time spent is greater than 50% in coordination of care (as documented) at patient's floor/unit and/or counseling patient: Coding Level of Care Code 90305 SUB INP/OBS CARE 235MIN Diagnoses COVID U07.1 Pneumonia J18.9 Laterality: unspecified laterality Lung location: unspecified part of lung Pneumonia type: due to unspecified organism Hypoxia R09.02 Hypertension I10 Hypomagnesemia E83.42 Chronic anticoagulation Z79.01 Diabetes mellitus E11.9 Diabetes mellitus complication status: without complication Diabetes mellitus long-term insulin use: unspecified vermin exterminator insulin use status Diabetes mellitus type: type 2 COPD (chronic obstructive pulmonary disease) J44.9 CLL (chronic lymphocytic leukemia) C91.10 History of breast cancer Z85.3 Oral candidiasis B37.0 (1) Diabetes mellitus Diabetes mellitus complication status: without complication Diabetes mellitus vermin exterminator insulin use: unspecified long-term insulin use status Diabetes mellitus type: type 2 Qualified Code(s): E11.9 - Type 2 diabetes mellitus without complications (2) Pneumonia Laterality: unspecified laterality Lung location: unspecified part of lung Pneumonia type: due to unspecified organism Qualified Code(s): J18.9 - Pneumonia, unspecified organism
[2022-12-05] MEDS: POTASSIUM CHLORIDE 10 MEQ TABCR PO SCH (08:47)
[2022-12-05] MEDS: IBUPROFEN 200 MG TAB PO SCH ×2 (08:48→19:46)
[2022-12-05] MEDS: ACALABRUTINIB PO SCH ×2 (08:48→19:47)
[2022-12-05] MEDS: FUROSEMIDE 20 MG TAB PO SCH (08:48)
[2022-12-05] MEDS: LOSARTAN POTASSIUM 50 MG TAB PO SCH (08:48)
[2022-12-05] MEDS: LORATADINE 10 MG TAB PO SCH (08:48)
[2022-12-05] MEDS: dexAMETHasone 6 MG in SYRINGE 0 ML IV SCH (08:49)
[2022-12-05] MEDS: GABAPENTIN 300 MG CAP PO SCH ×3 (08:49→19:46)
[2022-12-05] MEDS: guaiFENesin 600 MG TABCR PO SCH ×2 (08:50→19:45)
[2022-12-05] MEDS: NYSTATIN SUSP 500,000 U/5 ML UDC PO SCH ×4 (08:50→19:49)
[2022-12-05] MEDS: FLUTICASONE PROPIONATE NA SPR 16 GM BTL NAE SCH (08:50)
[2022-12-05] MEDS ORDERED: FLUTICASONE/VILANTEROL 100/25MCG 14 PUFFS/INHALER INH SCH (09:00)
[2022-12-05] MEDS: INSULIN ASPART PER UNIT SC SCH ×4 (09:29→21:00)
[2022-12-05] MEDS: INSULIN HUMAN NPH SC SCH (09:30)
[2022-12-05] MEDS: LETROZOLE 2.5 MG TAB PO SCH (09:32)
[2022-12-05] MEDS: CYCLOBENZAPRINE HCL 10 MG TAB PO SCH ×2 (09:35→21:06)
[2022-12-05 09:41] LABS: Hemoglobin 11.9 g/dl (12.0-16.0); Mean Corpuscular Hemoglobin 30.7 pg (25.0-34.0); Mean Corpuscular Hgb Conc 33.1 g/dL (32.0-36.0); Mean Corpuscular Volume 92.8 fL (80.0-100.0); Mean Platelet Volume 12.8 fL (9.4-12.4); Platelet Count 138 K/uL (130-400); RDW Coefficient of Variation 14.4 % (11.5-14.5); RDW Standard Deviation 48.5 fL (36.4-46.3); Red Blood Count 3.88 M/uL (4.20-5.40); White Blood Count 23.16 K/ul (4.8-10.8)
[2022-12-05 09:51] LABS: Albumin Globulin Ratio 1.1 (0.9-2); Albumin Level 3.2 gm/dl (3.4-5.0); BUN Creatinine Ratio 41.5 (10-20); Bilirubin,Total 0.6 mg/dl (0.2-1.0); C Reactive Protein 6.43 mg/dl (0-0.5); Calcium 8.8 mg/dl (8.5-10.1); Creatinine Clr Calc Pharmacy 52.7 ml/min; Est GFR (African American) 48.1 ml/min; Est GFR (Non-African American) 41.5 ml/min; Globulin 2.9 gm/dl (2.5-4.0); Magnesium 2.1 mg/dl (1.7-2.4); Potassium 4.2 mmol/L (3.5-5.1); Total Protein 6.1 gm/dl (6.0-8.3)
[2022-12-05 09:59] LABS: INR 3.1 (0.9-1.1); Prothrombin Time 30.6 Seconds (9.0-12.0)
[2022-12-05] MEDS ORDERED: FAMOTIDINE 20 MG TAB PO SCH (12:30)
[2022-12-05] MEDS: REMDESIVIR 100 MG in SODIUM CHLORIDE 0.9% 230 ML IV SCH (12:41)
[2022-12-05] MEDS ORDERED: Nursing to Pharmacy Communication SCH (13:45)
[2022-12-05] MEDS ORDERED: WARFARIN SOD 10 MG TAB PO SCH (16:00)
[2022-12-05] MEDS: SIMVASTATIN 20 MG TAB PO SCH (19:46)
[2022-12-05] MEDS: LANTUS PER UNIT CHARGE SQ SCH (21:00)
[2022-12-05] MEDS: FAMOTIDINE 20 MG TAB PO SCH (23:20)
[2022-12-06] MEDS ORDERED: HEPARIN 100 UNIT/ML 5ML FLUSH FLUSH PRN (04:53)
[2022-12-06] MEDS: POTASSIUM CHLORIDE 10 MEQ TABCR PO SCH (08:29)
[2022-12-06] MEDS: GABAPENTIN 300 MG CAP PO SCH ×3 (08:29→21:19)
[2022-12-06] MEDS: LETROZOLE 2.5 MG TAB PO SCH (08:29)
[2022-12-06] MEDS: FUROSEMIDE 20 MG TAB PO SCH (08:30)
[2022-12-06] MEDS: LORATADINE 10 MG TAB PO SCH (08:31)
[2022-12-06] MEDS: LOSARTAN POTASSIUM 50 MG TAB PO SCH (08:31)
[2022-12-06] MEDS: NYSTATIN SUSP 500,000 U/5 ML UDC PO SCH ×4 (08:32→21:22)
[2022-12-06] MEDS: guaiFENesin 600 MG TABCR PO SCH ×2 (08:32→21:20)
[2022-12-06] MEDS: FLUTICASONE PROPIONATE NA SPR 16 GM BTL NAE SCH (08:33)
[2022-12-06] MEDS: FORMOTEROL FUMARATE INH SCH (08:34)
[2022-12-06] MEDS: BUDESONIDE INH SCH (08:34)
[2022-12-06] MEDS: ACALABRUTINIB PO SCH ×2 (08:34→21:19)
--- NOTE | 2022-12-06 08:39 | Hospitalist Progress Note ---
Date of Service December 06, 2022 Assessment & Plan (1) COVID: Plan: 1st day of symptoms: Nov 25. Day 12 of symptoms currently. Vaccinated and boosted but never had COVID previously and possible decreased immune reaction to vaccination due to acalabrutinib use. Dexamethasone give last admission and continued for three days after discharge. Increased CRP and worsening symptoms, hypoxia on admission. Solu-medrol given in the ER. Will continue dexamethasone 6mg IV daily. Limited benefit demonstrated for remdesivir at day 9 but given still within 10 days and immunosuppressed state therefore recommend starting - monitor INR closely while on this as can enhance anticoagulant effect. COVID isolation precautions INR elevated and held Coumadin 12/05/22. INR elevated further and Remdesivir was stopped 12/06/22 (2) Pneumonia: Plan: Likely secondary bacterial pneumonia due to Covid - MRSA swab Negative, no need to add Vanco - Continue Cefepime 2gm IV q 8 hours Possible discharge tomorrow. And will send home on oral antibiotics, oral steroids. May need a 2 step test to determine if patient will need home O2. (3) Hypoxia: Plan: 2/2 COVID-19 Currently on 2L and saturating at 94% Aim O2 sats > 90% Incentive spirometer Flutter Mucinex 1200 q12H prn May need a 2 step testing tomorrow if still on O2 (4) Hypertension: Plan: Continue furosemide 20 mg p.o. daily and losartan 50 mg p.o. daily (5) Hypomagnesemia: Plan: Replaced on admission Labs today pending Continue to monitor (6) Chronic anticoagulation: Plan: Due to pulmonary embolism in 2013. Coumadin held secondary to elevated INR INR elevated 4.1 Continue to hold coumadin Continue to check INR daily. Remdesivir stopped today H&H stable and patient has no evidence of any GI bleeding (7) Diabetes mellitus: Plan: HbA1c 6.6 in May. Currently 7.4 Pharmacy following for glycemic control during inpatient admission and in the setting of steroid use Lantus 50 SQ HS NPH 25 Units SQ daily with the IV Dexamethasone NovoLog: --Goal BSG Range: Low 110 mg/dL, High 140 mg/dL --Correction Factor: 20 mg/dL/unit --Carbohydrate ratio = 1 unit per 4 grams CHO consumption --BSGs ACHS if eating, q6h if npo (8) COPD (chronic obstructive pulmonary disease): Plan: No acute exacerbation suspected at this time. No prior PFTs found on current version of [place]. D/C Breo (patient states tried in the past and had a sore mouth) Continue Symbicort (home medication) Albuterol as needed flutter given (9) CLL (chronic lymphocytic leukemia): Plan: Continue acalabrutinib 100mg PO BID (10) History of breast cancer: Plan: 2013 with recurrence in 2020 Continue letrozole 2.5 mg p.o. daily (11) Oral candidiasis: Plan: Possibly secondary to steroid usage and possibly also the Breo Nystatin 5ml swish gargle and swallow QID Plan VTE Prophylaxis - continue on her usual warfarin Diet - T2DM Disposition - admit to med/surg Pepcid BID to be given at noon and midnight ( 2hours prior to the Calquence) for GI prophylaxis Admission and Anticipated Discharge Date Admission Date: December 03, 2022 Subjective Patient is awake sitting up in bed and is at bedside. She states she is continuing to feel better. They are trying to decrease her O2 and currently she is only on 2 L and saturating in the mid 90s. She is trying to do the flutter and incentive spirometer. She states she would like to stay one more day. She is afraid to go home today and have to return. Review of Systems Review of Systems: All other ROS negative unless stated + above Physical Exam Constitutional: WD/WN, vitals as above Neck: trachea midline, no thyromegaly Respiratory: normal respiratory effort, lungs clear to auscultation able to speak in complete sentences; no labored breathing Patient coughs with deep breaths Cardiovascular: RRR, no murmur, no edema Gastrointestinal (Abdomen): normal bowel sounds, soft, nontender, no hepatosplenomegaly Neurologic: PERRL, EOMI, accommodation nl, no face palsy, no dysarthria Psychiatric: A+Ox3, euthymic affect Results & Data Results & Data ([facility]) Vital Signs (Past 12 Hours) Vital Signs Temp Pulse Resp BP Pulse Ox O2 Del Method O2 Flow Rate 12/06/22 07:56 36.5 C 73 18 114/73 94 Nasal Cannula 3.5 12/05/22 23:20 36.7 C 63 20 93 Nasal Cannula 4 12/05/22 22:25 Nasal Cannula 4 12/05/22 21:00 Nasal Cannula 4 Laboratory Results Abnormal lab results 12/05/22 12/05/22 12/06/22 Range/Units 17:33 20:45 08:00 WBC (4.8-10.8) K/ul RBC (4.20-5.40) M/uL Hgb (12.0-16.0) g/dl Hct (37.0-47.0) % RDW Std Deviation (36.4-46.3) fL MPV (9.4-12.4) fL PT (9.0-12.0) Seconds INR (0.9-1.1) Chloride (98-107) mmol/L BUN (6-23) mg/dl BUN/Creatinine Ratio (10-20) Glucose (70-99(Fasting)) mg/dl POC Glucose 208 H 235 H 57 L* (70-99) mg/dl Total Protein (6.0-8.3) gm/dl Albumin (3.4-5.0) gm/dl 12/06/22 12/06/22 12/06/22 Range/Units 08:02 08:26 08:38 WBC (4.8-10.8) K/ul RBC (4.20-5.40) M/uL Hgb (12.0-16.0) g/dl Hct (37.0-47.0) % RDW Std Deviation (36.4-46.3) fL MPV (9.4-12.4) fL PT (9.0-12.0) Seconds INR (0.9-1.1) Chloride (98-107) mmol/L BUN (6-23) mg/dl BUN/Creatinine Ratio (10-20) Glucose (70-99(Fasting)) mg/dl POC Glucose 61 L* 69 L* 111 H (70-99) mg/dl Total Protein (6.0-8.3) gm/dl Albumin (3.4-5.0) gm/dl 12/06/22 12/06/22 12/06/22 Range/Units 08:53 08:53 08:53 WBC 19.38 H (4.8-10.8) K/ul RBC 3.93 L (4.20-5.40) M/uL Hgb 11.9 L (12.0-16.0) g/dl Hct 36.9 L (37.0-47.0) % RDW Std Deviation 49.1 H (36.4-46.3) fL MPV 12.7 H (9.4-12.4) fL PT 41.4 H (9.0-12.0) Seconds INR 4.2 H (0.9-1.1) Chloride 110 H (98-107) mmol/L BUN 46 H (6-23) mg/dl BUN/Creatinine Ratio 40.0 H (10-20) Glucose 113 H (70-99(Fasting)) mg/dl POC Glucose (70-99) mg/dl Total Protein 5.9 L (6.0-8.3) gm/dl Albumin 3.1 L (3.4-5.0) gm/dl 12/06/22 Range/Units 12:24 WBC (4.8-10.8) K/ul RBC (4.20-5.40) M/uL Hgb (12.0-16.0) g/dl Hct (37.0-47.0) % RDW Std Deviation (36.4-46.3) fL MPV (9.4-12.4) fL PT (9.0-12.0) Seconds INR (0.9-1.1) Chloride (98-107) mmol/L BUN (6-23) mg/dl BUN/Creatinine Ratio (10-20) Glucose (70-99(Fasting)) mg/dl POC Glucose 169 H (70-99) mg/dl Total Protein (6.0-8.3) gm/dl Albumin (3.4-5.0) gm/dl PG Care Time/CCT Total # of Minutes Spent Total Time Spent with Patient: Total time spent is greater than 50% in coordination of care (as documented) at patient's floor/unit and/or counseling patient: Coding Level of Care Code 65059 SUB INP/OBS CARE 2MIN Diagnoses COVID U07.1 Pneumonia J18.9 Laterality: unspecified laterality Lung location: unspecified part of lung Pneumonia type: due to unspecified organism Hypoxia R09.02 Hypertension I10 Hypomagnesemia E83.42 Chronic anticoagulation Z79.01 Diabetes mellitus E11.9 Diabetes mellitus complication status: without complication Diabetes mellitus bed bug exterminator insulin use: unspecified care home insulin use status Diabetes mellitus type: type 2 COPD (chronic obstructive pulmonary disease) J44.9 CLL (chronic lymphocytic leukemia) C91.10 History of breast cancer Z85.3 Oral candidiasis B37.0 (1) Diabetes mellitus Diabetes mellitus complication status: without complication Diabetes mellitus bed bug exterminator insulin use: unspecified bed bug exterminator insulin use status Diabetes mellitus type: type 2 Qualified Code(s): E11.9 - Type 2 diabetes mellitus without complications (2) Pneumonia Laterality: unspecified laterality Lung location: unspecified part of lung Pneumonia type: due to unspecified organism Qualified Code(s): J18.9 - Pneumonia, unspecified organism
[2022-12-06 09:17] LABS: Hematocrit (blood only) 36.9 % (37.0-47.0); Hemoglobin 11.9 g/dl (12.0-16.0); Mean Corpuscular Hemoglobin 30.3 pg (25.0-34.0); Mean Corpuscular Hgb Conc 32.2 g/dL (32.0-36.0); Mean Corpuscular Volume 93.9 fL (80.0-100.0); Mean Platelet Volume 12.7 fL (9.4-12.4); Platelet Count 141 K/uL (130-400); RDW Coefficient of Variation 14.2 % (11.5-14.5); RDW Standard Deviation 49.1 fL (36.4-46.3); Red Blood Count 3.93 M/uL (4.20-5.40); White Blood Count 19.38 K/ul (4.8-10.8)
[2022-12-06 09:40] LABS: Albumin Globulin Ratio 1.1 (0.9-2); Albumin Level 3.1 gm/dl (3.4-5.0); Bilirubin,Total 0.6 mg/dl (0.2-1.0); Calcium 8.8 mg/dl (8.5-10.1); Creatinine Clr Calc Pharmacy 59.6 ml/min; Est GFR (African American) 55.8 ml/min; Est GFR (Non-African American) 48.2 ml/min; Globulin 2.8 gm/dl (2.5-4.0); Magnesium 2.1 mg/dl (1.7-2.4); Potassium 4.3 mmol/L (3.5-5.1); Total Protein 5.9 gm/dl (6.0-8.3)
[2022-12-06 09:49] LABS: INR 4.2 (0.9-1.1); Prothrombin Time 41.4 Seconds (9.0-12.0)
[2022-12-06] MEDS: IBUPROFEN 200 MG TAB PO SCH ×2 (10:08→21:22)
[2022-12-06] MEDS: INSULIN HUMAN NPH SC SCH (10:35)
[2022-12-06] MEDS: INSULIN ASPART PER UNIT SC SCH ×4 (10:36→21:10)
[2022-12-06] MEDS: dexAMETHasone 6 MG in SYRINGE 0 ML IV SCH (10:45)
[2022-12-06] MEDS: CYCLOBENZAPRINE HCL 10 MG TAB PO SCH ×2 (10:45→21:29)
[2022-12-06] MEDS: CEFEPIME 2,000 MG in SYRINGE 0 ML IV SCH ×2 (13:19→23:58)
[2022-12-06] MEDS: REMDESIVIR 100 MG in SODIUM CHLORIDE 0.9% 230 ML IV SCH (13:22)
[2022-12-06] MEDS: FAMOTIDINE 20 MG TAB PO SCH (13:24)
--- NOTE | 2022-12-06 14:23 | Pharmacy Report ---
Pharmacy Glycemic Short Note 2 - Date of Service December 06, 2022 - Glycemic Short BSG Results (Last 24 hours): 12/05/22 12/05/22 12/06/22 17:33 20:45 08:00 Glucose POC Glucose 208 H 235 H 57 L* 12/06/22 12/06/22 12/06/22 08:02 08:26 08:38 Glucose POC Glucose 61 L* 69 L* 111 H 12/06/22 12/06/22 08:53 12:24 Glucose 113 H POC Glucose 169 H OUTPATIENT ANTIDIABETIC REGIMEN: * Lantus 64 units SQ HS * Novolog SS + 8 units QID * HbA1c = 7.4% on 12/04/22 ASSESSMENT: 12/06/22 * Blood sugars nikole all day yesterday, then fell overnight, BSG 57mg/dl this AM - decrease basal by 20% tonight * Tighten CR for better prandial coverage throughout the day. Continue CF, incase excess CF contributed to low BSG this AM * Patient continues on Dexamethasone 6mg IV Q24H 12/04/22 * 72 y/o F admitted for worsening hypoxia from Covid. Patient is on an immunosuppressant for CLL. She was admitted last week for 2 days for covid but now with worsening symptoms. * She has history of diabetes managed at home on basal and bolus insulin. Will continue same. * IV Solu medrol 125 mg, one dose, given yesterday in the ED caused BSG to trend up above 300 mg/dl. Today, she is started on IV Dexamethasone 6 mg daily. * Basal Lantus 50 units (slightly reduced from home dose) given last night. However, fasting BSG was still high today at 253 mg/dl. Will increase basal dose tonight. * Added NPH insulin also this morning. Utilized dose of 0.3 unit/kg using adjusted body wt. * BSGs trended up to 297 pre-lunch. Expect this to trend down by dinner. * Novolog was ordered based on wt and stress of 3 yesterday. Continued the same today. PLAN FOR INPATIENT GLYCEMIC CONTROL: * Basal insulin * Lantus 50 SQ HS * NPH 25 units SQ daily with IV Dexamethasone * Bolus insulin * NovoLog per scale ACHS or Q6hrs while NPO * Goal Range: Low 110 mg/dL - High 140 mg/dL * Correction Factor: 20 mg/dL/unit * Nutritional / Prandial insulin per carb ratio of 1 unit per 4 grams CHO consumed
[2022-12-06] MEDS ORDERED: LANTUS PER UNIT CHARGE SQ SCH ×2 (21:00)
[2022-12-06] MEDS: SIMVASTATIN 20 MG TAB PO SCH (21:27)
[2022-12-07] MEDS: FAMOTIDINE 20 MG TAB PO SCH ×2 (00:14→13:40)
[2022-12-07 07:34] LABS: Hematocrit (blood only) 37.2 % (37.0-47.0); Mean Corpuscular Hemoglobin 30.4 pg (25.0-34.0); Mean Corpuscular Hgb Conc 32.3 g/dL (32.0-36.0); Mean Corpuscular Volume 94.2 fL (80.0-100.0); Mean Platelet Volume 12.9 fL (9.4-12.4); Platelet Count 124 K/uL (130-400); RDW Coefficient of Variation 14.1 % (11.5-14.5); RDW Standard Deviation 48.8 fL (36.4-46.3); Red Blood Count 3.95 M/uL (4.20-5.40)
[2022-12-07 07:54] LABS: Albumin Globulin Ratio 1.3 (0.9-2); Albumin Level 3.3 gm/dl (3.4-5.0); BUN Creatinine Ratio 40.2 (10-20); Bilirubin,Total 0.7 mg/dl (0.2-1.0); Calcium 8.9 mg/dl (8.5-10.1); Creatinine Clr Calc Pharmacy 67.2 ml/min; Est GFR (African American) 64.5 ml/min; Est GFR (Non-African American) 55.7 ml/min; Globulin 2.5 gm/dl (2.5-4.0); Potassium 4.3 mmol/L (3.5-5.1); Total Protein 5.8 gm/dl (6.0-8.3)
[2022-12-07 07:56] LABS: INR 3.1 (0.9-1.1); Prothrombin Time 31.4 Seconds (9.0-12.0)
[2022-12-07] MEDS: dexAMETHasone 6 MG in SYRINGE 0 ML IV SCH (09:39)
[2022-12-07] MEDS: BUDESONIDE INH SCH (09:40)
[2022-12-07] MEDS: FORMOTEROL FUMARATE INH SCH (09:40)
[2022-12-07] MEDS: LOSARTAN POTASSIUM 50 MG TAB PO SCH (09:41)
[2022-12-07] MEDS: LORATADINE 10 MG TAB PO SCH (09:41)
[2022-12-07] MEDS: FUROSEMIDE 20 MG TAB PO SCH (09:41)
[2022-12-07] MEDS: IBUPROFEN 200 MG TAB PO SCH ×2 (09:41→21:43)
[2022-12-07] MEDS: guaiFENesin 600 MG TABCR PO SCH ×2 (09:41→21:43)
[2022-12-07] MEDS: GABAPENTIN 300 MG CAP PO SCH ×3 (09:42→21:43)
[2022-12-07] MEDS: POTASSIUM CHLORIDE 10 MEQ TABCR PO SCH (09:42)
[2022-12-07] MEDS: NYSTATIN SUSP 500,000 U/5 ML UDC PO SCH ×4 (09:42→21:43)
[2022-12-07] MEDS: FLUTICASONE PROPIONATE NA SPR 16 GM BTL NAE SCH (09:43)
[2022-12-07] MEDS: ACALABRUTINIB PO SCH ×2 (09:43→21:43)
[2022-12-07] MEDS: INSULIN ASPART PER UNIT SC SCH ×4 (09:57→21:37)
[2022-12-07] MEDS: LETROZOLE 2.5 MG TAB PO SCH (09:58)
[2022-12-07] MEDS: CYCLOBENZAPRINE HCL 10 MG TAB PO SCH ×2 (09:58→21:43)
[2022-12-07] MEDS: INSULIN HUMAN NPH SC SCH (09:58)
--- NOTE | 2022-12-07 10:00 | Hospitalist Progress Note ---
Date of Service December 07, 2022 Assessment & Plan (1) COVID: Plan: 1st day of symptoms: Nov 25. Day 12 of symptoms currently. Vaccinated and boosted but never had COVID previously and possible decreased immune reaction to vaccination due to acalabrutinib use. Dexamethasone give last admission and continued for three days after discharge. Increased CRP and worsening symptoms, hypoxia on admission. Solu-medrol given in the ER. Will continue dexamethasone 6mg IV daily. COVID isolation precautions INR elevated and held Coumadin 12/05/22. INR elevated further and Remdesivir was stopped 12/06/22 INR improved today to 3.1 (4.1) (2) Pneumonia: Plan: Likely secondary bacterial pneumonia due to Covid - MRSA swab Negative, no need to add Vanco - Continue Cefepime 2gm IV q 8 hours Possible discharge tomorrow. And will send home on oral antibiotics, oral steroids. Will get a 2 step test to determine if patient will need home O2 either today or tomorrow (3) Hypoxia: Plan: 2 COVID-19 Currently on 2L and saturating at 94% Aim O2 sats > 90% Incentive spirometer Flutter Mucinex 1200 q12H prn 2 step test either today or tomorrow Nursing to check patient's pulse oximeter connection (patient got it wet and it is reading 60 to 98% and patient is not in distress and lungs are improved (4) Hypertension: Plan: Continue furosemide 20 mg p.o. daily and losartan 50 mg p.o. daily (5) Hypomagnesemia: Plan: Replaced on admission Labs today pending Continue to monitor (6) Chronic anticoagulation: Plan: Due to pulmonary embolism in 2013. Coumadin held secondary to elevated INR INR elevated 4.1 Continue to hold coumadin Continue to check INR daily. Remdesivir stopped 12/06/22 H&H stable and patient has no evidence of any GI bleeding (7) Diabetes mellitus: Plan: HbA1c 6.6 in May. Currently 7.4 Pharmacy following for glycemic control during inpatient admission and in the setting of steroid use Lantus 50 SQ HS NPH 25 Units SQ daily with the IV Dexamethasone NovoLog: --Goal BSG Range: Low 110 mg/dL, High 140 mg/dL --Correction Factor: 20 mg/dL/unit --Carbohydrate ratio = 1 unit per 4 grams CHO consumption --BSGs ACHS if eating, q6h if npo (8) COPD (chronic obstructive pulmonary disease): Plan: No acute exacerbation suspected at this time. No prior PFTs found on current version of [employer] D/C Breo (patient states tried in the past and had a sore mouth) Continue Symbicort (home medication) Albuterol as needed flutter given (9) CLL (chronic lymphocytic leukemia): Plan: Continue acalabrutinib 100mg PO BID (10) History of breast cancer: Plan: 2013 with recurrence in 2020 Continue letrozole 2.5 mg p.o. daily (11) Oral candidiasis: Plan: Possibly secondary to steroid usage and possibly also the Breo Nystatin 5ml swish gargle and swallow QID improved off Breo Plan VTE Prophylaxis - continue on her usual warfarin Diet - T2DM Disposition - admit to med/surg Pepcid BID to be given at noon and midnight ( 2hours prior to the [place]quence) for GI prophylaxis Admission and Anticipated Discharge Date Admission Date: December 03, 2022 Subjective Patient is sitting upright in bed in [facility]. She thinks her pulse oximeter got wet and is not working properly. She is still coughing but no chest pain or dyspnea. Review of Systems Review of Systems: All other ROS negative unless stated + above Physical Exam Constitutional: WD/WN, vitals as above Neck: trachea midline, no thyromegaly Respiratory: normal respiratory effort, lungs clear to auscultation able to speak in complete sentences; no labored breathing Cardiovascular: RRR, no murmur, no edema Gastrointestinal (Abdomen): normal bowel sounds, soft, nontender, no hepatosplenomegaly Neurologic: PERRL, EOMI, accommodation nl, no face palsy, no dysarthria Psychiatric: A+Ox3, euthymic affect Results & Data Results & Data ([facility]) Vital Signs (Past 12 Hours) Vital Signs Pulse Resp BP Pulse Ox O2 Del Method O2 Flow Rate 12/07/22 08:59 54 L 18 126/75 95 Nasal Cannula 2 PG Care Time/CCT Total # of Minutes Spent Total Time Spent with Patient: Total time spent is greater than 50% in coordination of care (as documented) at patient's floor/unit and/or counseling patient: Coding Level of Care Code 26112 SUB INP/OBS CARE 11/19MIN Diagnoses COVID U07.1 Pneumonia J18.9 Laterality: unspecified laterality Lung location: unspecified part of lung Pneumonia type: due to unspecified organism Hypoxia R09.02 Hypertension I10 Hypomagnesemia E83.42 Chronic anticoagulation Z79.01 Diabetes mellitus E11.9 Diabetes mellitus complication status: without complication Diabetes mellitus detention insulin use: unspecified buttermaker helper insulin use status Diabetes mellitus type: type 2 COPD (chronic obstructive pulmonary disease) J44.9 CLL (chronic lymphocytic leukemia) C91.10 History of breast cancer Z85.3 Oral candidiasis B37.0 (1) Diabetes mellitus Diabetes mellitus complication status: without complication Diabetes mellitus detention insulin use: unspecified detention insulin use status Diabetes mellitus type: type 2 Qualified Code(s): E11.9 - Type 2 diabetes mellitus without complications (2) Pneumonia Laterality: unspecified laterality Lung location: unspecified part of lung Pneumonia type: due to unspecified organism Qualified Code(s): J18.9 - Pneumonia, unspecified organism
[2022-12-07] MEDS: CEFEPIME 2,000 MG in SYRINGE 0 ML IV SCH ×3 (13:41→21:54)
[2022-12-07] MEDS ORDERED: LANTUS PER UNIT CHARGE SQ SCH (21:00)
[2022-12-07] MEDS: SIMVASTATIN 20 MG TAB PO SCH (21:43)
[2022-12-08] MEDS: FAMOTIDINE 20 MG TAB PO SCH ×2 (00:56→13:31)
[2022-12-08] MEDS: CEFEPIME 2,000 MG in SYRINGE 0 ML IV SCH (06:19)
[2022-12-08] MEDS: INSULIN ASPART PER UNIT SC SCH ×2 (09:23→13:03)
[2022-12-08] MEDS: ACALABRUTINIB PO SCH (09:34)
[2022-12-08] MEDS: BUDESONIDE INH SCH (09:34)
[2022-12-08] MEDS: FORMOTEROL FUMARATE INH SCH (09:34)
[2022-12-08] MEDS: FLUTICASONE PROPIONATE NA SPR 16 GM BTL NAE SCH (09:35)
[2022-12-08] MEDS: FUROSEMIDE 20 MG TAB PO SCH (09:36)
[2022-12-08] MEDS: guaiFENesin 600 MG TABCR PO SCH (09:37)
[2022-12-08] MEDS: GABAPENTIN 300 MG CAP PO SCH ×2 (09:37→13:32)
[2022-12-08] MEDS: LETROZOLE 2.5 MG TAB PO SCH (09:38)
[2022-12-08] MEDS: IBUPROFEN 200 MG TAB PO SCH (09:38)
[2022-12-08] MEDS: LOSARTAN POTASSIUM 50 MG TAB PO SCH (09:39)
[2022-12-08] MEDS: NYSTATIN SUSP 500,000 U/5 ML UDC PO SCH (09:39)
[2022-12-08] MEDS: LORATADINE 10 MG TAB PO SCH (09:39)
[2022-12-08] MEDS: POTASSIUM CHLORIDE 10 MEQ TABCR PO SCH (09:40)
[2022-12-08] MEDS: dexAMETHasone 6 MG in SYRINGE 0 ML IV SCH (09:43)
[2022-12-08] MEDS: INSULIN HUMAN NPH SC SCH (09:44)
[2022-12-08] MEDS: CYCLOBENZAPRINE HCL 10 MG TAB PO SCH (09:53)
[2022-12-08 10:37] LABS: INR 2.2 (0.9-1.1); Prothrombin Time 22.4 Seconds (9.0-12.0)
[2022-12-08 10:43] LABS: Albumin Globulin Ratio 1.3 (0.9-2); Albumin Level 3.2 gm/dl (3.4-5.0); BUN Creatinine Ratio 36.9 (10-20); Creatinine Clr Calc Pharmacy 56.2 ml/min; Est GFR (Non-African American) 44.8 ml/min; Globulin 2.5 gm/dl (2.5-4.0); Total Protein 5.7 gm/dl (6.0-8.3)
--- NOTE | 2022-12-08 10:47 | Discharge Summary ---
Date of Service December 08, 2022 Admission HPI Per Admitting Provider nEid Swan is a 72 year old female with history of breast cancer and CLL who presents to the ER with worsening shortness of breath, cough, nausea and fatigue following COVID-19 diagnosis and brief admission on November 28 to 2022. She reports initial symptoms starting November 25 or November 26. She did significantly improve during a hospital admission on dexamethasone. Remdesivir was not started due to initial borderline renal function and subsequent rapid resolution and have hypoxia. She was given a shortened course of 3 days of dexamethasone on discharge. However symptoms started getting worse again yesterday. She is much more fatigued, sleeping the majority of the time, productive cough, ongoing fevers and reduced appetite. reports she may not be taking her regular medications and is not taking her blood sugars regularly. She denies any chest pain, abdominal pain, nasal congestion, sore throat, diarrhea. She has noticed loss of taste and smell. In the emergency room she is requiring 2LPM O2 to maintain O2 sats > 90%. She was given Solu-Medrol 125 mg IV. She was referred to medicine for admission and ongoing management of COVID-19. Admission Exam Per Admitting Provider Constitutional: well developed; + not well nourished and no acute distress Eyes: PERRL, conjunctivae normal, anicteric sclerae Respiratory: normal respiratory effort and able to speak in complete sentences; no respiratory distress, no labored breathing, does not use accessory muscles, not tachypneic, expiratory phase not prolonged and no stridor Auscultation: + diminished lung sounds (Bibasal) and + crackles (Fine crackles posteriorly throughout); breath sounds present, no rales, no rhonchi and no wheezes Cardiovascular: Rate/Rhythm: regular rate and regular rhythm Heart Sounds: no murmur Extremities: normal capillary refill and + pedal edema (2+); no calf tenderness Gastrointestinal (Abdomen): normal bowel sounds, soft, nontender, no hepatosplenomegaly Musculoskeletal: no cyanosis or clubbing, extremities motor strength 5/5 Skin: no rashes, warm and dry (Bilateral lower extremity venous stasis changes without cellulitis) Neurologic: moves all extremities and awake; no focal motor deficits and not confused Psychiatric: A+Ox3, euthymic affect Genitourinary: no CVA tenderness Principal Diagnosis Covid Pneumonia Discharge Exam Constitutional WD/WN, vitals as above NAD, sitting upright in bed on no Oxygen and saturatin at RA 94% Neck trachea midline, no thyromegaly Respiratory normal respiratory effort, lungs clear to auscultation able to speak in complete sentences; no labored breathing Cardiovascular RRR, no murmur, no edema Gastrointestinal (Abdomen) normal bowel sounds, soft, nontender, no hepatosplenomegaly Neurologic PERRL, EOMI, accommodation nl, no face palsy, no dysarthria Psychiatric A+Ox3, euthymic affect Discharge Data Allergies Allergy/AdvReac Type Severity Reaction Status Date / Time No Known Allergies Allergy Verified 12/03/22 17:43 Consultations 12/03/22 17:22 ED Decision to Admit Stat Ordered Studies Chest X-Ray 12/08/22 11:07 XR chest 2V PA/lateral CLINICAL HISTORY: previous pneumonia COMPARISON STUDY: Chest radiograph December 03, 2022. Chest CT January 07, 2021. FINDINGS: Right internal jugular [id number]-i-[id number] remains in place. There is no pneumothorax or pleural effusion. Cardiomegaly is unchanged. Mediastinal contours are stable. Multifocal bilateral airspace opacities and interstitial thickening, greater within the right lung, persists. The appearance of the chest is similar to prior exam. IMPRESSION: Persistent multifocal airspace opacities and interstitial thickening, greater within the right lung. The findings suggest multifocal pneumonia. Radiographic follow-up to ensure resolution is recommended. ACT 112: Negative or not required by law. Electronically signed by: Ashok Henry M.D. 12/08/2022 12:20 PM Hospital Course (1) COVID: 1st day of symptoms: Nov 25. Vaccinated and boosted but never had COVID previously and possible decreased i mmune reaction to vaccination due to acalabrutinib use. Dexamethasone give last admission and continued for three days after discharge. Increased CRP and worsening symptoms, hypoxia on admission. Solu-medrol given in the ER. Continued dexamethasone 6mg IV daily in the hospital. COVID isolation precautions INR elevated and held Coumadin 12/05/22. INR elevated further and Remdesivir was stopped 12/06/22 INR improved yesterday to 3.1 (4.1) INR today is 2.2 Restart Coumadin tonight (2) Pneumonia: Likely secondary bacterial pneumonia due to Covid - MRSA swab Negative, no need to add Vanco - Continued Cefepime 2gm IV q 8 hours while inpatient Patient is being discharged home today on oral antibiotics - Cefuroxime 500mg on BID #4 pills (to start tonight) And also Dexamethasone 6mg one daily for 3 days (to also start tonight) Patient should follow up with her PCP and get repeat CXR in the future (3) Hypoxia: 2/ COVID-19 Currently on 2L and saturating at 94% Aim O2 sats > 90% Incentive spirometer Flutter Mucinex 1200 q12H prn 2 step test done today and patient does not need to be sent home on any O2. Currently saturating well on RA in mid . (4) Hypertension: Continue furosemide 20 mg p.o. daily and losartan 50 mg p.o. daily (5) Hypomagnesemia: Replaced on admission and improved (6) Chronic anticoagulation: Due to pulmonary embolism in 2013. Coumadin held secondary to elevated INR INR elevated 4.1 Held coumadin INR increased further and Remdesivir stopped 12/06/22 H&H remained stable and patient has no evidence of any GI bleeding INR today 2.2 Will restart Coumadin tonight (7) Diabetes mellitus: HbA1c 6.6 in May. Currently 7.4 Pharmacy following for glycemic control during inpatient admission and in the setting of steroid use Treated with insulin while in patient and return to home medications upon discharge (8) COPD (chronic obstructive pulmonary disease): No acute exacerbation suspected at this time. No prior PFTs found on current version of [place]. D/C Breo (patient states tried in the past and had a sore mouth) Continue Symbicort (home medication) Albuterol as needed flutter and incentive spirometer given (9) CLL (chronic lymphocytic leukemia): Continue acalabrutinib 100mg PO BID (10) History of breast cancer: 2013 with recurrence in 2020 Continue letrozole 2.5 mg p.o. daily (11) Oral candidiasis: Possibly secondary to steroid usage and possibly also the Breo Nystatin 5ml swish gargle and swallow QID improved off Breo Resolved Plan Discharge home today Total Time Total Time Spent Total Time Spent (In Minutes): 40 Discharge Plan Discharge Items Patient Disposition: Home - Self-Care Reason For Visit: COVID-19, HYPOXIA Discharge Diagnosis: Covid pneumonia and hypoxia Condition on Discharge: Good Activity: Per Instructions section Lifting: Gradually increase as tolerated Exercise/Sports: Gradually increase as tolerated Weightbearing: Full weightbearing Non-emergency contact: Primary Care Provider Call non-emergency contact if: you have any medication questions, your symptoms worsen and your temperature is above 101.5 Follow-up/Referrals: Suzy Barton CRNP [Primary Care Provider] - 12/15/22 11:30 am (DR. MOISE) Diet: Carb Count or DM1 Addtl Attending Provider Instructions: You were admitted with low blood oxygen level during Covid infection. You have a hx of cancer and on immunosuppressants and it was decided to start you on Remesivir treatment. You also were placed on Oxygen and IV steroids were starte d and had a chest x ray that revealed pneumonia. You then were placed on IV antibiotics every 8 hours. You clinically improved each day. You were placed on the hospitals equivalent of Symbicort which was Breo and this medication made your mouth sore and you were allowed to bring in your own Symbicort from home to take instead of the Breo. The Remdesivir increased your bleeding time and your coumadin was held and then the Remdesivir was eventually also discontinued and your INR returned to normal levels and you are able to start this medication back up tonight. You are being sent home with Cefuroxime 500mg one pill 2 X per day (to start this evening before bed) and finish all 4 pills Also will have steroids 6mg one daily for 3 days starting tomorrow. You will need to follow up with your family doctor and will need a repeat cxr to make sure resolution of your pneumonia. Pending Studies at Discharge: Yes Studies:: Blood cultures are still pending But are no growth at 48 hour miya Stand-Alone Forms: My [facility] Medications and DC Order Prescriptions: New cefuroxime axetil 500 mg tablet 500 mg PO BID Qty: 4 0RF Rx Instructions: START THIS MEDICATION TONIGHT AFTER DINNER dexamethasone 6 mg tablet 6 mg PO DAILY Qty: 3 0RF Rx Instructions: PLEASE START THIS TOMORROW 12/09/22 Continued warfarin 5 mg tablet See Rx Instructions PO UD Rx Instructions: 15mg q M/Th, 10mg x 5 days per [facility] orally use as directed magnesium citrate 85 mg tablet,chewable 335 mg PO QAM Calquence 100 mg capsule 100 mg PO BID Rx Instructions: PT BR[facility]HT [facility]WN [facility], [facility] DOESN[facility]T HAVE MED. cyclobenzaprine 10 mg tablet 10 mg PO BID budesonide-formoterol [Symbicort] 80-4.5 mcg/actuation HFA aerosol inhaler 2 puff INHALATION QAM Qty: 30.6 3RF (DME) insulin syringe-needle U-100 [BD Insulin Syringe Ultra-Fine] 1 mL 31 gauge x 5/16 syringe See Dose Instructions .ROUTE .MEDSUPPLY Qty: 300 3RF Rx Instructions: ONCE DAILY WITH LANTUS (DME) insulin syringe-needle U-100 [BD Insulin Syringe Ultra-Fine] 0.5 mL 31 gauge x 5/16" syringe See Rx Instructions .ROUTE .MEDSUPPLY Qty: 300 4RF Rx Instructions: Use As directed QID WITH NOVOLOG furosemide 20 mg tablet 20 mg PO QAM Qty: 90 3RF famotidine 40 mg tablet 40 mg PO BID Qty: 180 3RF gabapentin 300 mg capsule 300 mg PO TID Qty: 270 3RF potassium chloride 10 mEq tablet extended release 10 meq PO QAM Qty: 90 3RF (DME) blood sugar diagnostic Strip See Dose Instructions .ROUTE .MEDSUPPLY Qty: 400 3RF Rx Instructions: TEST FOUR TIMES DAILY; DX CODE- E11.9 loratadine 10 mg tablet 10 mg PO QAM Centrum Silver 0.4-300-250 mg-mcg-mcg tablet 1 tab PO QAM (DME) lancets [OneTouch Delica Lancets] 30 gauge misc See Dose Instructions .ROUTE .MEDSUPPLY Qty: 200 4RF Rx Instructions: As directed QID letrozole [Femara] 2.5 mg Tablet 2.5 mg PO QAM fluticasone propionate [Flonase Allergy Relief] 50 mcg/actuation Bryson,Suspension 1 - 2 spray INTRANASAL QAM ibuprofen 200 mg tablet 400 mg PO BID losartan 50 mg tablet 50 mg PO DAILY Qty: 30 2RF albuterol sulfate [Ventolin HFA] 90 mcg/actuation HFA aerosol inhaler 2 inh inhalation Q6H PRN (Reason: shortness of breath or wheezing or cough) Qty: 8.5 0RF Rx Instructions: use with spacer device. (DME) Aerochamber MV Spacer See Rx Instructions .Route Qty: 1 0RF Rx Instructions: As directed with albuterol. insulin glargine [Lantus U-100 Insulin] 100 unit/mL solution 64 unit SUBCUT HS Label Comments: 32 units Rx Instructions: 3 month supply insulin aspart U-100 [Novolog U-100 Insulin aspart] 100 unit/mL solution 8 sliding scale dose SUBCUT QID Rx Instructions: using a sliding scale with each meal, on average 8 u with each meal, no more than 25 u daily simvastatin 20 mg tablet 20 mg PO HS Label Comments: AT SUPPER TIME Discharge Orders: Discharge Order (Routine); Ordered 12/08/22 Ordered By: Naz Douglas/Other Patient Handouts: Managing Type 2 Diabetes Admission Data Admit Date/Time: 12/03/22 18:15 Attending Provider: [place] Admit Provider: Dariel Gongora Primary Care Provider: Suzy Barton Other Providers: Dariel Gongora Coding Level of Care Code HOSP INP/OBS DISCH >30 MIN Diagnoses COVID U07.1 Pneumonia J18.9 Laterality: unspecified laterality Lung location: unspecified part of lung Pneumonia type: due to unspecified organism Hypoxia R09.02 Hypertension I10 Hypomagnesemia E83.42 Chronic anticoagulation Z79.01 Diabetes mellitus E11.9 Diabetes mellitus complication status: without complication Diabetes mellitus terminal manager insulin use: unspecified retirement insulin use status Diabetes mellitus type: type 2 COPD (chronic obstructive pulmonary disease) J44.9 CLL (chronic lymphocytic leukemia) C91.10 History of breast cancer Z85.3 Oral candidiasis B37.0
--- NOTE | 2022-12-08 12:21 | XRay Report ---
XR chest 2V PA/lateral CLINICAL HISTORY: previous pneumonia COMPARISON STUDY: Chest radiograph December 03, 2022. Chest CT January 07, 2021. FINDINGS: Right internal jugular [id number] remains in place. There is no pneumothorax or pleural effusion. Cardiomegaly is unchanged. Mediastinal contours are stable. Multifocal bilateral airspace o pacities and interstitial thickening, greater within the right lung, persists. The appearance of the chest is similar to prior exam. IMPRESSION: Persistent multifocal airspace opacities and interstitial thickening, greater within the right lung. The findings suggest multifocal pneumonia. Radiographic follow-up to ensure resolution i s recommended. ACT 112: Negative or not required by law. Electronically signed by: Ashok Henry M.D. 12/08/2022 12:20 PM
[2022-12-08] MEDS ORDERED: CEFEPIME 2,000 MG in SYRINGE 0 ML IV SCH (18:00)
[2022-12-08] MEDS ORDERED: LANTUS PER UNIT CHARGE SQ SCH (21:00)
== END 2022-12-08 15:53 | disposition home or self-care (01) | DRG 177 ==
LOC: ED 14:43 → 3W 18:15 → SUATTDRO 18:15 → 3W 23:34

== ENCOUNTER 2023-10-13 08:12 | Observation (INO) ==
--- NOTE | 2023-10-13 08:51 | Emergency Department Note ---
Impression & Plan Left leg pain, Fracture of left tibia and fibula, Fall ED Provider Note NAME: KATHRINE GUADARRAMA AGE: 73 SEX: F : 1950 ARRIVES VIA: Ambulance INFORMANT: [Patient][family] ED PROVIDER(S): [Jeffrey Lennon MD] CHIEF COMPLAINT: Fall HISTORY OF PRESENT ILLNESS: The patient is a 73-year-old female who slipped yesterday in the shower and fell. She was being helped by a professional healthcare representative however, she still injured her left lower leg. She hurts primarily at the left ankle and foot but the left knee hurts a bit too. She states that she can stand and put some weight on the left leg but has a hard time walking. She uses a walker typically, sometimes a wheelchair. Patient is on Lovenox but denies loss of consciousness or hitting her head. There is no neck pain, back pain, chest pain or abdominal pain. No upper extremity pain. PMHx/PSHx/Social Hx: See Below PHYSICAL EXAM: GENERAL: Patient is in no acute distress. HEENT: No acute trauma, normocephalic atraumatic, mucous membranes moist, no nasal congestion. NECK: No stridor, no adenopathy, nontender cervical spine, trachea is midline. LUNGS: Clear to auscultation bilaterally, no wheeze, no rhonchi, breath sounds equal. HEART: Without murmurs gallops or rubs, regular rate and rhythm. ABDOMEN: Soft, nontender, no peritonitis. Obese. EXTREMITIES: No cyanosis. The patient has mild discomfort to palpate about the anterior left knee, the patella appears in proper position, no obvious left knee joint effusion. No deformity to the left tib-fib. No deformity to the left ankle or left foot although, there is some left ankle swelling. She is painful to palpate the bilateral ankle and also the left lateral foot. No evidence for distal left lower extremity neurovascular compromise. NEUROLOGIC: Oriented x 3, no acute motor or sensory deficits, no focal weakness. SKIN: No jaundice, no diaphoresis. DIFFERENTIAL DIAGNOSIS: Fracture, sprain, strain, neurovascular compromise, contusion, among others. EMERGENCY DEPARTMENT PROCEDURES: Splint Care: After the ortho glass splint was placed by the engineer automated equipment, I examined the splint and confirmed proper application/placement/position. Neurovascular status was intact both proximal and distal to the splinted area. MEDICAL DECISION MAKING: There is a moderate leukocytosis, this could be consistent with infection or just her pain and presentation. She has had some elevated white blood cell counts previously. There is a normal hemoglobin and platelet count. No renal failure or significant electrolyte abnormality. On x-ray, the patient does have a proximal fibular fracture on the left with a distal tibia fracture. By her report, she could not ambulate because of the pain in the leg. There was no gross deformity to the left lower extremity clinically. I did speak with orthopedics. The patient may require orthopedic intervention surgically versus just immobilization. Given the patient's discomfort, given her inability to ambulate, given the need for an orthopedic evaluation, hospitalization was felt warranted. I did speak with the patient and case management, the on-call hospitalist was consulted. Of note, the patient did not want any pain medication while here. She was placed in a sugar-tong splint. The splint was placed to prevent worsening fracture displacement. Prior/Outside records/notes reviewed: EMS notes Imaging/x-ray results per my interpretation: Films of the left knee, left tib- fib, left ankle and left foot were performed. The patient does have a proximal fibular fracture and distal tibia fracture at the area of the medial malleolus. Chronic Medical/Social conditions affecting care: Obesity, COPD, advanced age. Care/Management discussed with: Orthopedics on-call, case management and the on-call hospitalist. Level of care consideration(s): After review of the information above and other included data: --I believe the patient requires escalation of care to admission DISPOSITION: Admission Past Med/Surg History Medical History Maisonneuve fracture of left lower extremity Infiltrating ductal carcinoma of breast Closed wedge compression fracture of first lumbar vertebra Anterior epistaxis Hypomagnesemia COVID Spinal stenosis of lumbar region with radiculopathy History of colon polyps BENIGN Acute bursitis shots in each knee for bursitis or january or february 2022 History of adenomatous polyp of colon History of anesthesia reaction SLOW TO WAKE UP PT REPORTS NEEDS FACE MASK FOR OXYGEN, NO NASAL CANNULA - CAN'T TOLERATE/NASAL PASSAGES CLOSE UP Hyperplastic polyp of descending colon CLL (chronic lymphocytic leukemia) Chronic back pain Anemia On anticoagulant therapy Acute superficial venous thrombosis of left lower extremity 06/2020. Degenerative arthritis of knee, bilateral Atrial fibrillation dx a while ago, following with PCP, no pacer; has seen jackie hamilton 06/2022 no hx cardioversion GERD (gastroesophageal reflux disease) Morbid obesity with BMI of 40.0-44.9, adult Hyperlipidemia Lumbar spinal stenosis Hypertension COPD (chronic obstructive pulmonary disease) daily inh Diabetes mellitus IDDM Lyme disease hx PE (pulmonary embolism) (~03/06/14) hx 2013 post op mastectomy; treated with AC Chronic lymphocytic leukemia (CLL), B-cell (~03/22/13) chemotherapy ~2017 and currently taking oral chemo Breast cancer, right breast (01/30/14) 2013; chemo, Rt mastectomy, 2020 reoccurrence Surgical History History of right total mastectomy Port-A-Cath in place (01/02/21) Insertion of Access Port Dr. Low 01/02/2021 History of bilateral tubal ligation History of colonoscopy with polypectomy Status post epidural steroid injection History of tooth extraction all teeth removed History of vascular access device had placed for chemo--removed in 2013, port put in again on right side 01/02/2021 > no IV chemo at present just oral History of mastectomy R WITH AXILLARY EXCISION-R ARM RESTRICTION 2013 History of section X 2 Family History (Updated 06/30/23 @ 14:39 by RAJI Rogers) Father Family history of diabetes mellitus Myocardial infarction Heart disease Hypertension Mother Family history of diabetes mellitus Brother Family history of diabetes mellitus Cancer Grandmother Family history of diabetes mellitus Grandfather Family history of diabetes mellitus Aunt Cancer Other No family history of adverse response to anesthesia Denies family history of Ovarian cancer Prostate cancer Breast cancer Colorectal cancer Social History Smoking Status: Never smoker Second Hand Exposure: No; Do You Dip or Chew Tobacco: No; Hx Alcohol Use: No Hx Substance Use: No Preferred Language: Togolese Communication Ability: Effective Communication Tools: Writing Tablet Visual Impairment: Limited Hearing Ability: Normal Narcotics Agent Required: No Beliefs That Will Affect Care: None marital status: Current Living Situation: Spouse Current Living Situation Comment: [facility] current occupational status: retired How many Children do You have: 2 Feels Safe at Home: Yes Childhood Exposure to Second-Hand Smoke: No Diet: regular caffeine: Yes during the past year weight has: remained stable Dental Care, Regularly: No Physical Activity Frequency: Daily Seatbelt Use: always Sunscreen Use: No Assistive Devices: Denture - Upper, Denture - Lower, Glasses, Walker and Wheelchair Allergies Allergies Allergy/AdvReac Type Severity Reaction Status Date / Time acetaminophen Allergy Unknown raises Unverified 10/13/23 11:12 blood pressure in high doses Home Meds Home Medications Medication Instructions Recorded Confirmed loratadine 10 mg tablet 10 mg PO QAM 07/11/19 10/13/23 multivitamin with minerals 1 tab PO DAILY 12/25/22 10/13/23 (Multiple Vitamin-Minerals tablet) vitamin E (dl, acetate) 180 mg 180 mg PO DAILY 12/25/22 10/13/23 (400 unit) capsule insulin lispro 100 unit/mL 11 unit subcut TID 02/17/23 10/13/23 subcutaneous solution (Humalog U-100 Insulin) magnesium oxide 400 mg PO DAILY 02/17/23 10/13/23 sodium chloride 0.65 % nasal spray 1 spray intranasal TID PRN 02/17/23 10/13/23 aerosol ([place] Saline) Congestion docusate sodium 100 mg capsule 100 mg PO HS Constipation 02/27/23 10/13/23 insulin glargine 100 unit/mL 55 unit subcut HS 04/09/23 10/13/23 subcutaneous solution (Lantus U-100 Insulin) beclomethasone dipropionate 40 2 inh inhalation QAM 10/13/23 10/13/23 mcg/actuation HFA breath activated aerosol (Qvar RediHaler) cetirizine 5 mg-pseudoephedrine ER 1 tab PO .LUNCH 10/13/23 10/13/23 120 mg tablet,extended release,12hr ferrous sulfate 325 mg (65 mg 325 mg PO DAILY 10/13/23 10/13/23 iron) tablet,delayed release ibuprofen 200 mg tablet 200 mg PO Q6H PRN pain/fever 10/13/23 10/13/23 rosuvastatin 5 mg tablet 5 mg PO QAM 10/13/23 10/13/23 Previous Rx's Medication Instructions Recorded lancets 30 gauge (OneTouch Delica #200 ea 06/29/20 Lancets) blood sugar diagnostic #400 ea 10/31/22 inhalational spacing device #1 ea 11/29/22 (Aerochamber MV spacer) famotidine 40 mg tablet 40 mg PO DAILY #90 tabs 02/27/23 furosemide 20 mg tablet 40 mg (2 x 20 mg) PO QAM #180 tabs 02/27/23 gabapentin 300 mg capsule 300 mg PO TID #270 caps 02/27/23 umeclidinium 62.5 mcg/actuation 1 inh inhalation DAILY #90 ea 02/27/23 blister powder for inhalation (Incruse Ellipta) voriconazole 200 mg tablet 400 mg (2 x 200 mg) PO Q12H #360 02/27/23 tabs miscellaneous medical supply 1 ea miscellaneous .COMPLEX L89.90 03/02/23 #1 ea miscellaneous medical supply 1 ea miscellaneous .COMPLEX L89.90 03/02/23 #1 ea albuterol sulfate 90 mcg/actuation 2 inh inhalation Q4 PRN shortness 03/17/23 aerosol inhaler (Ventolin HFA) of breath or wheezing or cough #6.7 grams insulin syringe-needle U-100 1 mL #300 ea 04/02/23 31 gauge x 5/16" (BD Insulin Syringe Ultra-Fine) potassium chloride 10 mEq 10 meq PO DAILY #30 tabs 04/09/23 tablet,extended release (Klor-Con) insulin syringe-needle U-100 0.5 #300 ea 05/20/23 mL 31 gauge x 5/16" (BD Insulin Syringe Ultra-Fine) enoxaparin 40 mg/0.4 mL 40 mg (0.4 mL) subcut Q24H #90 09/03/23 subcutaneous syringe syringes Results & Data (ED) Vital Signs Vital Signs - 24 hr 10/13/23 08:19 10/13/23 08:19 10/13/23 10:00 Temperature 37 C Temperature Source Oral Pulse Rate 84 Pulse Rate [Right Finger] 84 71 Respiratory Rate 20 20 16 Respiratory Effort / Characteristics Non-Labored Spontaneous Non-Labored Spontaneous Non-Labored Spontaneous Respiratory Depth Normal Normal Normal Respiratory Pattern Regular Regular Regular Blood Pressure 145/78 H Blood Pressure [Left Arm] 145/78 H 117/90 Blood Pressure Mean 100 Blood Pressure Mean [Left Arm] 100 99 Pulse Oximetry 97 97 96 Oxygen Delivery Method Room Air Room Air Room Air Sepsis Recent Fever Within 48 Hours No Sepsis New/Unexplained Change in Mental Status No Sepsis Action Taken by Nursing No Action Required 10/13/23 10:30 Temperature Temperature Source Pulse Rate Pulse Rate [Right Finger] 77 Respiratory Rate 19 Respiratory Effort / Characteristics Non-Labored Spontaneous Respiratory Depth Normal Respiratory Pattern Blood Pressure Blood Pressure [Left Arm] 127/69 Blood Pressure Mean Blood Pressure Mean [Left Arm] 88 Pulse Oximetry 94 Oxygen Delivery Method Room Air Sepsis Recent Fever Within 48 Hours Sepsis New/Unexplained Change in Mental Status Sepsis Action Taken by Half-Way Medications Current Medication List: was personally reviewed by me Laboratory Data Attestation: I reviewed the patient's lab results. 10/13/23 11:07 10/13/23 11:07 Lab Results 10/13/23 Range/Units 11:07 WBC 15.37 H (4.8-10.8) K/ul RBC 4.05 L (4.20-5.40) M/uL Hgb 12.4 (12.0-16.0) g/dl Hct 37.0 (37.0-47.0) % MCV 91.4 (80.0-100.0) fL MCH 30.6 (25.0-34.0) pg MCHC 33.5 (32.0-36.0) g/dL RDW Std Deviation 44.9 (36.4-46.3) fL RDW Coeff of Jose E 13.3 (11.5-14.5) % Plt Count 166 (130-400) K/uL MPV 11.5 (9.4-12.4) fL Sodium 137 (136-145) mmol/L Potassium 3.4 L (3.5-5.1) mmol/L Chloride 102 (98-107) mmol/L Carbon Dioxide 27 (21-32) mmol/L Anion Gap 8 (3-11) BUN 17 (6-23) mg/dl Creatinine 0.76 (0.6-1.2) mg/dl Est Cr Clr Drug Dosing 89.1 ml/min Est GFR ( Amer) 91.5 ml/min Est GFR (Non-Af Amer) 78.9 ml/min BUN/Creatinine Ratio 22.4 H (10-20) Glucose 254 H (70-99(Fasting)) mg/dl Calcium 9.2 (8.6-10.3) mg/dl Imaging Data Radiologist's Impression: Ankle X-Ray 10/13/23 08:45 XR ankle LT min 3V routine, XR tibia fibula LT 2V CLINICAL HISTORY: Fall. Left lower leg and ankle pain. COMPARISON STUDY: None. FINDINGS: Mildly displaced oblique fracture within the proximal shaft of the left fibula. This demonstrates up to 2 mm of lateral and anterior displacement. The proximal tibia is intact. Nondisplaced fracture at the medial malleolus. There is a plantar heel spur. Soft tissue swelling within the left ankle. Vascular calcifications are noted. The ankle mortise is maintained. IMPRESSION: Above findings consistent with a Maisonneuve fracture as described above. ACT 112: Negative or not required by law. Electronically signed by: Elbert Alfred M.D. 10/13/2023 9:14 AM Foot X-Ray 10/13/23 08:45 XR foot LT min 3V routine CLINICAL HISTORY: fall, pain COMPARISON: None FINDINGS: There is an acute nondisplaced fracture of the medial malleolus. Ankle soft tissue swelling is present. Tarsometatarsal joints are intact. No acute fracture within the left foot is noted. There is moderate vascular calcification. Moderate degenerative changes within multiple articulations of the left foot are present. IMPRESSION: 1. Acute nondisplaced fracture of the medial malleolus. Left ankle soft tissue swelling. 2. No acute fracture within the left foot. ACT 112: Negative or not required by law. Electronically signed by: Ashok Henry M.D. 10/13/2023 9:[address] 10/13/23 08:45 CT OF THE HEAD WITHOUT CONTRAST CLINICAL HISTORY: fall, lovenox COMPARISON STUDY: Head CT December 25, 2022. MRI of the brain June 18, 2023. CT DOSE: 625.8 mGy.cm TECHNIQUE: Helical axial images of the head were obtained without IV contrast. Automated exposure control was utilized for the study. A dose lowering technique was utilized adhering to the principles of ALARA. FINDINGS: No acute intracranial hemorrhage, midline shift or mass effect is present. The ventricular system is unremarkable. The basal cisterns are patent. No extra-axial collections are present. 1.7 cm hypodense focus within the left cerebellar hemisphere similar to MRI of June 18, 2023. Left occipital craniotomy is present There are no findings to suggest acute dural sinus thrombosis or acute territorial infarct. No significant calvarial abnormalities are present. Visualized portions of the sinuses and mastoid air cells are clear. Posterior scalp sebaceous cyst is incidentally noted. IMPRESSION: 1. No acute intracranial findings. 2. Stable postoperative findings within the left posterior fossa, including a 1.7 cm hypodense focus within the left cerebellar hemisphere. 3. No acute calvarial fracture. ACT 112: Negative or not required by law. Electronically signed by: Ashok Henry M.D. 10/13/2023 9:37 AM Knee X-Ray 10/13/23 08:45 XR knee LT 1 or 2V routine CLINICAL HISTORY: fall, pain COMPARISON: Left knee radiographs February 14, 2019. FINDINGS: Severe left knee osteoarthritis is present with joint space narrowing and extensive osteophytosis. There is a moderate-sized left knee joint effusion without lipohemarthrosis. Note is made of an acute comminuted mildly displaced oblique fracture of the proximal shaft of the left fibula. IMPRESSION: 1. Acute comminuted mildly displaced oblique fracture of the proximal shaft of the left fibula. Given a nondisplaced fracture of the medial malleolus, the findings suggest a Maisonneuve fracture. 2. Severe left knee osteoarthritis. Moderate-sized left knee joint effusion. ACT 112: Negative or not required by law. Electronically signed by: Ashok Henry M.D. 10/13/2023 9:13 AM Tibia/Fibula X-Ray 10/13/23 08:45 XR ankle LT min 3V routine, XR tibia fibula LT 2V CLINICAL HISTORY: Fall. Left lower leg and ankle pain. COMPARISON STUDY: None. FINDINGS: Mildly displaced oblique fracture within the proximal shaft of the left fibula. This demonstrates up to 2 mm of lateral and anterior displacement. The proximal tibia is intact. Nondisplaced fracture at the medial malleolus. There is a plantar heel spur. Soft tissue swelling within the left ankle. Vascular calcifications are noted. The ankle mortise is maintained. IMPRESSION: Above findings consistent with a Maisonneuve fracture as described above. ACT 112: Negative or not required by law. Electronically signed by: Elbert Alfred M.D. 10/13/2023 9:14 AM Discharge Plan Visit Data Chief Complaint: Fall Stated Complaint: L ANKLE, KNEE & TOE PAIN, FALL ED Provider: Jeffrey Lennon Discharge Problem: Left leg pain, Fracture of left tibia and fibula, Fall Patient Disposition: Admitted As Inpatient Condition: Fair Discharge Instructions Interventions: ED Discharge Assessment Last Done: 10/13/23 14:58 Discharge Problem: Fracture of left tibia and fibula Qualifiers: Encounter type: initial encounter Fracture type: closed Qualified Code(s): S 82.202A - Unspecified fracture of shaft of left tibia, initial encounter for closed fracture; S82.402A - Unspecified fracture of shaft of left fibula, initial encounter for closed fracture Fall Qualifiers: Encounter type: initial encounter Qualified Code(s): W19.XXXA - Unspecified fall, initial encounter
--- NOTE | 2023-10-13 09:16 | XRay Report ---
XR ankle LT min 3V routine, XR tibia fibula LT 2V CLINICAL HISTORY: Fall. Left lower leg and ankle pain. COMPARISON STUDY: None. FINDINGS: Mildly displaced oblique fracture within the proximal shaft of the left fibula. This demons trates up to 2 mm of lateral and anterior displacement. The proximal tibia is intact. Nondisplaced fr acture at the medial malleolus. There is a plantar heel spur. Soft tissue swelling within the left an kle. Vascular calcifications are noted. The ankle mortise is maintained. IMPRESSION: Above findings consistent with a Maisonneuve fracture as described above. ACT 112: Negative or not required by law. Electronically signed by: Elbert Alfred M.D. 10/13/2023 9:14 AM
--- NOTE | 2023-10-13 09:16 | XRay Report ---
XR knee LT 1 or 2V routine CLINICAL HISTORY: fall, pain COMPARISON: Left knee radiographs February 14, 2019. FINDINGS: Severe left knee osteoarthritis is present with joint space narrowing and extensive osteop hytosis. There is a moderate-sized left knee joint effusion without lipohemarthrosis. Note is made of an acute comminuted mildly displaced oblique fracture of the proximal shaft of the left fibula. IMPRESSION: 1. Acute comminuted mildly displaced oblique fracture of the proximal shaft of the left fibula. Given a nondisplaced fracture of the medial malleolus, the findings suggest a Maisonneuve fracture. 2. Severe left knee osteoarthritis. Moderate-sized left knee joint effusion. ACT 112: Negative or not required by law. Electronically signed by: Ashok Henry M.D. 10/13/2023 9:13 AM
--- NOTE | 2023-10-13 09:21 | XRay Report ---
XR foot LT min 3V routine CLINICAL HISTORY: fall, pain COMPARISON: None FINDINGS: There is an acute nondisplaced fracture of the medial malleolus. Ankle soft tissue swellin g is present. Tarsometatarsal joints are intact. No acute fracture within the left foot is noted. The re is moderate vascular calcification. Moderate degenerative changes within multiple articulations of the left foot are present. IMPRESSION: 1. Acute nondisplaced fracture of the medial malleolus. Left ankle soft tissue swelling. 2. No acute fracture within the left foot. ACT 112: Negative or not required by law. Electronically signed by: Ashok Henry M.D. 10/13/2023 9:19 AM
--- NOTE | 2023-10-13 09:38 | CT Scan Report ---
CT OF THE HEAD WITHOUT CONTRAST CLINICAL HISTORY: fall, lovenox COMPARISON STUDY: Head CT December 25, 2022. MRI of the brain June 18, 2023. CT DOSE: 625.8 mGy.cm TECHNIQUE: Helical axial images of the head were obtained without IV contrast. Automated exposure con trol was utilized for the study. A dose lowering technique was utilized adhering to the principles o f ALARA. FINDINGS: No acute intracranial hemorrhage, midline shift or mass effect is present. The ventricular system is unremarkable. The basal cisterns are patent. No extra-axial collections are present. 1.7 cm hypodense focus within the left cerebellar hemisphere similar to MRI of June 18, 2023. Left occipi fer craniotomy is present There are no findings to suggest acute dural sinus thrombosis or acute terr itorial infarct. No significant calvarial abnormalities are present. Visualized portions of the sinus es and mastoid air cells are clear. Posterior scalp sebaceous cyst is incidentally noted. IMPRESSION: 1. No acute intracranial findings. 2. Stable postoperative findings within the left posterior fossa, including a 1.7 cm hypodense focus within the left cerebellar hemisphere. 3. No acute calvarial fracture. ACT 112: Negative or not required by law. Electronically signed by: Ashok Henry M.D. 10/13/2023 9:37 AM
--- NOTE | 2023-10-13 11:21 | History & Physical Report ---
Date of Service October 13, 2023 Assessment & Plan (1) Maisonneuve fracture of left lower extremity: Plan: Nonweightbearing on left lower extremity pending orthopedic evaluation for operative versus nonoperative management Consult orthopedics (2) Unstable gait: Plan: Currently unstable gait at baseline since of brain abscess Will need physical therapy/Occupational Therapy pending determination of weightbearing status and surgical determination as likely need for placement on discharge. (3) COPD (chronic obstructive pulmonary disease): Plan: No acute exacerbation suspected Continue her routine inhalers (4) Diabetes mellitus: Plan: HbA1c 6.2 in August, no need to repeat this Home regimen of Lantus 55 units HS, insulin lispro 11 units TID Glucose elevated at 254 on admission, this is off to her usual breakfast lispro dosing Suspect her diet will be substantially less than carbohydrates therefore reduce basal dosing in half with NovoLog dosing based upon this Start Lantus 13 units BID NovoLog: --Goal BSG Range: Low 110 mg/dL, High 140 mg/dL --Correction Factor: 30 mg/dL/unit --Carbohydrate ratio = 10 g/unit --BSGs ACHS if eating, q6h if npo (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, remains on voriconzole (6) Brain abscess: (7) On continuous oral anticoagulation: (8) Weakness of left side of body: (9) Breast cancer, right breast: Plan VTE Prophylaxis - Lovenox 40mg SQ daily Diet - T2DM Disposition - observation to med/surg Admission and Anticipated Discharge Date Admission Date: October 13, 2023 History of Present Illness Chief Complaint: Left leg pain Primary Care Provider: LAURA Delgado Enid Swan is a 73 year old female with significant history of breast cancer and brain abscess with aspergillus who presents to the ER with left lower extremity pain after slipping in the shower earlier today. She reports using a new system in her shower with just a seat without the slide and she was unable to stand up well and slipped on the mat. She was in an awkward position and her career development coordinator eased her down to the ground. She complained of left ankle pain and her had to use a Matt lift to get her into a wheelchair. She was unable to stand enough to get to her walker therefore he brought her to the ER today. She has a significant history of CLL and right breast cancer. Previously on Femara and Acalabrutinib for respective conditions. 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 She was subsequently diagnosed with aspergillus fumigatus. Subsequent developed erythema of her right eye and found to have fungemia with right corneal epithelial involvement. She was discharged for rehabilitation due to ongoing left sided weakness in January. Baseline she can stand with assistance and walk for short =distances but is mostly wheelchair bound. She has a history of pulmonary embolism in 2014 and remains on VTE prophyalxis dose Lovenox due to interaction with voriconazole. Allergies Allergy/AdvReac Type Severity Reaction Status Date / Time acetaminophen Allergy Unknown raises Unverified 10/13/23 11:12 blood pressure in high doses Home Medications Medication Instructions Recorded Confirmed Type loratadine 10 mg tablet 10 mg PO QAM 07/11/19 10/13/23 History lancets 30 gauge (OneTouch Delica #200 ea 04/23/20 09/02/23 Rx Lancets) blood sugar diagnostic #400 ea 10/31/22 09/02/23 Rx inhalational spacing device #1 ea 11/29/22 09/02/23 Rx (Aerochamber MV spacer) multivitamin with minerals 1 tab PO DAILY 12/25/22 10/13/23 History (Multiple Vitamin-Minerals tablet) vitamin E (dl, acetate) 180 mg 180 mg PO DAILY 12/25/22 10/13/23 History (400 unit) capsule insulin lispro 100 unit/mL 11 unit subcut TID 02/17/23 10/13/23 History subcutaneous solution (Humalog U-100 Insulin) magnesium oxide 400 mg PO DAILY 02/17/23 10/13/23 History sodium chloride 0.65 % nasal spray 1 spray intranasal TID PRN 02/17/23 10/13/23 History aerosol ([place]) Congestion docusate sodium 100 mg capsule 100 mg PO HS Constipation 02/27/23 10/13/23 H istory famotidine 40 mg tablet 40 mg PO DAILY #90 tabs 02/27/23 10/13/23 Rx furosemide 20 mg tablet 40 mg (2 x 20 mg) PO QAM #180 tabs 02/27/23 10/13/23 Rx gabapentin 300 mg capsule 300 mg PO TID #270 caps 02/27/23 10/13/23 Rx umeclidinium 62.5 mcg/actuation 1 inh inhalation DAILY #90 ea 02/27/23 10/13/23 Rx blister powder for inhalation (Incruse Ellipta) voriconazole 200 mg tablet 400 mg (2 x 200 mg) PO Q12H #360 02/27/23 10/13/23 Rx tabs miscellaneous medical supply 1 ea miscellaneous .COMPLEX L89.90 03/02/23 09/02/23 Rx #1 ea miscellaneous medical supply 1 ea miscellaneous .COMPLEX L89.90 03/02/23 09/02/23 Rx #1 ea albuterol sulfate 90 mcg/actuation 2 inh inhalation Q4 PRN shortness 03/17/23 10/13/23 Rx aerosol inhaler (Ventolin HFA) of breath or wheezing or cough #6.7 grams insulin syringe-needle U-100 1 mL #300 ea 04/02/23 09/02/23 Rx 31 gauge x 5/16" (BD Insulin Syringe Ultra-Fine) insulin glargine 100 unit/mL 55 unit subcut HS 04/09/23 10/13/23 History subcutaneous solution (Lantus U-100 Insulin) potassium chloride 10 mEq 10 meq PO DAILY #30 tabs 04/09/23 10/13/23 Rx tablet,extended release (Klor-Con) insulin syringe-needle U-100 0.5 #300 ea 05/20/23 09/02/23 Rx mL 31 gauge x 5/16" (BD Insulin Syringe Ultra-Fine) enoxaparin 40 mg/0.4 mL 40 mg (0.4 mL) subcut Q24H #90 09/03/23 10/13/23 Rx subcutaneous syringe syringes beclomethasone dipropionate 40 2 inh inhalation QAM 10/13/23 10/13/23 History mcg/actuation HFA breath activated aerosol (Qvar RediHaler) cetirizine 5 mg-pseudoephedrine ER 1 tab PO .LUNCH 10/13/23 10/13/23 History 120 mg tablet,extended release,12hr ferrous sulfate 325 mg (65 mg 325 mg PO DAILY 10/13/23 10/13/23 History iron) tablet,delayed release ibuprofen 200 mg tablet 200 mg PO Q6H PRN pain/fever 10/13/23 10/13/23 History rosuvastatin 5 mg tablet 5 mg PO QAM 10/13/23 10/13/23 History Past Med/Surg History Medical History Maisonneuve fracture of left lower extremity Infiltrating ductal carcinoma of breast Closed wedge compression fracture of first lumbar vertebra Anterior epistaxis Hypomagnesemia COVID Spinal stenosis of lumbar region with radiculopathy History of colon polyps BENIGN Acute bursitis shots in each knee for bursitis or january or february 2022 History of adenomatous polyp of colon History of anesthesia reaction SLOW TO WAKE UP PT REPORTS NEEDS FACE MASK FOR OXYGEN, NO NASAL CANNULA - CAN'T TOLERATE/NASAL PASSAGES CLOSE UP Hyperplastic polyp of descending colon CLL (chronic lymphocytic leukemia) Chronic back pain Anemia On anticoagulant therapy Acute superficial venous thrombosis of left lower extremity 06/2020. Degenerative arthritis of knee, bilateral Atrial fibrillation dx a while ago, following with PCP, no pacer; has seen jackie hamilton 06/2022 no hx cardioversion GERD (gastroesophageal reflux disease) Morbid obesity with BMI of 40.0-44.9, adult Hyperlipidemia Lumbar spinal stenosis Hypertension COPD (chronic obstructive pulmonary disease) daily inh Diabetes mellitus IDDM Lyme disease hx PE (pulmonary embolism) (~03/06/14) hx 2013 post op mastectomy; treated with AC Chronic lymphocytic leukemia (CLL), B-cell (~03/22/13) chemotherapy ~2017 and currently taking oral chemo Breast cancer, right breast (01/30/14) 2013; chemo, Rt mastectomy, 2020 reoccurrence Surgical History History of right total mastectomy Port-A-Cath in place (01/02/21) Insertion of Access Port Dr. Low 01/02/2021 History of bilateral tubal ligation History of colonoscopy with polypectomy Status post epidural steroid injection History of tooth extraction all teeth removed History of vascular access device had placed for chemo--removed in 2013, port put in again on right side 2020 > no IV chemo at present just oral History of mastectomy R WITH AXILLARY EXCISION-R ARM RESTRICTION 2013 History of section X 2 Family History Father Family history of diabetes mellitus Myocardial infarction Heart disease Hypertension Mother Family history of diabetes mellitus Brother Family history of diabetes mellitus Cancer Grandmother Family history of diabetes mellitus Grandfather Family history of diabetes mellitus Aunt Cancer Other No family history of adverse response to anesthesia Denies family history of Ovarian cancer Prostate cancer Breast cancer Colorectal cancer Social History Smoking Status: Never smoker Second Hand Exposure: Yes; Do You Dip or Chew Tobacco: No; Hx Alcohol Use: No Hx Substance Use: No Preferred Language: Egyptian Communication Ability: Effective Communication Tools: Writing Tablet Visual Impairment: Limited Hearing Ability: Normal Food Service Tray Attendant Required: No Beliefs That Will Affect Care: None marital status: Current Living Situation: Spouse Current Living Situation Comment: [facility] current occupational status: retired How many Children do You have: 2 Other Information That Helps Us Care for You: No Feels Safe at Home: Yes Safety Concerns: Feels Safe At This Time Childhood Exposure to Second-Hand Smoke: No Diet: regular caffeine: Yes during the past year weight has: remained stable Dental Care, Regularly: No Physical Activity Frequency: Daily Seatbelt Use: always Sunscreen Use: No Assistive Devices: Denture - Upper, Denture - Lower, Glasses, Hospital Bed, Mechanical Lift, Walker and Wheelchair Review of Systems Review of Systems: All systems reviewed & are unremarkable except as noted in HPI & below Physical Exam Constitutional: WD/WN, vitals as above Eyes: + anicteric sclerae; normal pupil size Respiratory: normal respiratory effort, lungs clear to auscultation Cardiovascular: RRR, no murmur, no edema Gastrointestinal (Abdomen): normal bowel sounds, soft, nontender, no hepatosplenomegaly Musculoskeletal: Left leg in splint not removed for exam, sensation intact in toes and cap refil < 2s Skin: no rashes, warm and dry Neurologic: moves all extremities, + focal motor deficit (left sided weakness) and awake; not confused Psychiatric: A+Ox3, euthymic affect Results & Data Results & Data Vital Signs (Past 12 Hours) Vital Signs Temp Pulse Pulse Resp BP BP Pulse Ox 10/13/23 10:00 71 16 117/90 96 10/13/23 08:19 84 20 145/78 H 97 10/13/23 08:19 37 C 84 20 145/78 H 97 O2 Del Method 10/13/23 10:00 Room Air 10/13/23 08:19 Room Air 10/13/23 08:19 Room Air Laboratory Results Abnormal lab results 10/13/23 10/13/23 10/13/23 Range/Units 11:07 16:54 21:23 WBC 15.37 H (4.8-10.8) K/ul RBC 4.05 L (4.20-5.40) M/uL Potassium 3.4 L (3.5-5.1) mmol/L BUN/Creatinine Ratio 22.4 H (10-20) Glucose 254 H (70-99(Fasting)) mg/dl POC Glucose 160 H 193 H (70-99) mg/dl Diagnostic Findings CT OF THE HEAD WITHOUT CONTRAST CLINICAL HISTORY: fall, lovenox COMPARISON STUDY: Head CT December 25, 2022. MRI of the brain June 18, 2023. CT DOSE: 625.8 mGy.cm TECHNIQUE: Helical axial images of the head were obtained without IV contrast. Automated exposure control was utilized for the study. A dose lowering technique was utilized adhering to the principles of ALARA. FINDINGS: No acute intracranial hemorrhage, midline shift or mass effect is present. The ventricular system is unremarkable. The basal cisterns are patent. No extra-axial collections are present. 1.7 cm hypodense focus within the left cerebellar hemisphere similar to MRI of June 18, 2023. Left occipital craniotomy is present There are no findings to suggest acute dural sinus thro mbosis or acute territorial infarct. No significant calvarial abnormalities are present. Visualized portions of the sinuses and mastoid air cells are clear. Posterior scalp sebaceous cyst is incidentally noted. IMPRESSION: 1. No acute intracranial findings. 2. Stable postoperative findings within the left posterior fossa, including a 1.7 cm hypodense focus within the left cerebellar hemisphere. 3. No acute calvarial fracture. XR knee LT 1 or 2V routine CLINICAL HISTORY: fall, pain COMPARISON: Left knee radiographs February 14, 2019. FINDINGS: Severe left knee osteoarthritis is present with joint space narrowing and extensive osteophytosis. There is a moderate-sized left knee joint effusion without lipohemarthrosis. Note is made of an acute comminuted mildly displaced oblique fracture of the proximal shaft of the left fibula. IMPRESSION: 1. Acute comminuted mildly displaced oblique fracture of the proximal shaft of the left fibula. Given a nondisplaced fracture of the medial malleolus, the findings suggest a Maisonneuve fracture. 2. Severe left knee osteoarthritis. Moderate-sized left knee joint effusion. XR ankle LT min 3V routine, XR tibia fibula LT 2V CLINICAL HISTORY: Fall. Left lower leg and ankle pain. COMPARISON STUDY: None. FINDINGS: Mildly displaced oblique fracture within the proximal shaft of the left fibula. This demonstrates up to 2 mm of lateral and anterior displacement. The proximal tibia is intact. Nondisplaced fracture at the medial malleolus. There is a plantar heel spur. Soft tissue swelling within the left ankle. Vascular calcifications are noted. The ankle mortise is maintained. IMPRESSION: Above findings consistent with a Maisonneuve fracture as described above. Medications Administered ER medications given: None Code Status & VTE Plan Code Status Full VTE Prophylaxis Plan VTE Prophylaxis will be ordered: Yes PG Care Time/CCT Total # of Minutes Spent Total Time Spent with Patient: Total time spent is greater than 50% in coordination of care (as documented) at patient's floor/unit and/or counseling patient: Coding Level of Care Code 10625 INT INP/OBS CARE 255MIN Diagnoses Maisonneuve fracture of left lower extremity S82.862A Unstable gait R26.81 COPD (chronic obstructive pulmonary disease) J44.9 Diabetes mellitus E11.9 Diabetes mellitus complication status: without complication Diabetes mellitus emt intermediate insulin use: unspecified assisted insulin use status Diabetes mellitus type: type 2 Aspergillosis B44.9 Brain abscess G06.0 On continuous oral anticoagulation Z79.01 Weakness of left side of body R53.1 Breast cancer, right breast C50.911 (4) Diabetes mellitus Diabetes mellitus complication status: without complication Diabetes mellitus emt intermediate insulin use: unspecified emt intermediate insulin use status Diabetes mellitus type: type 2 Qualified Code(s): E11.9 - Type 2 diabetes mellitus without complications
[2023-10-13 11:28] LABS: Hemoglobin 12.4 g/dl (12.0-16.0); Mean Corpuscular Hemoglobin 30.6 pg (25.0-34.0); Mean Corpuscular Hgb Conc 33.5 g/dL (32.0-36.0); Mean Corpuscular Volume 91.4 fL (80.0-100.0); Mean Platelet Volume 11.5 fL (9.4-12.4); Platelet Count 166 K/uL (130-400); RDW Coefficient of Variation 13.3 % (11.5-14.5); RDW Standard Deviation 44.9 fL (36.4-46.3); Red Blood Count 4.05 M/uL (4.20-5.40); White Blood Count 15.37 K/ul (4.8-10.8)
[2023-10-13 11:44] LABS: BUN Creatinine Ratio 22.4 (10-20); Calcium 9.2 mg/dl (8.6-10.3); Creatinine Clr Calc Pharmacy 89.1 ml/min; Est GFR (African American) 91.5 ml/min; Est GFR (Non-African American) 78.9 ml/min; Potassium 3.4 mmol/L (3.5-5.1)
--- NOTE | 2023-10-13 12:22 | Orthopedic Consultation ---
Date of Service October 13, 2023 Assessment & Plan (1) Maisonneuve fracture of left lower extremity: Plan Patient is being consulted today for a left proximal fibula fracture and medial malleolus fracture consistent with a Maisonneuve fracture. No bony abnormalities noted in the foot or the knee. There is a knee effusion. This is likely due to an arthritic flareup. She has been rehabbing in her home from a brain abscess earlier this year. She has been walking more than normal, however her baseline walking at this time is with a walker and also with the wheelchair. In light of the fracture, she is currently in a splint. Either this evening or later tomorrow, she may be transition into a tall boot. She should be flatfoot weightbearing until reevaluation in 7-10 days in an outpatient setting. Continue elevations, icing. Boot can be taken off for rest and for hygiene. Would also recommend skin checks for development of ulcers. Would recommend 7-10 day follow-up with Dr. Matthews's clinic. History of Present Illness Reason for Consultation: Fall, Maisonneuve fracture on plain films Requesting Physician: Dariel Gongora Enid is a 73 year old female who reported to the ED this morning in light of increased difficulty with ambulation and pain in her left lower extremity. She states that yesterday she slipped in the shower, injuring her leg. She was found to have a proximal fibula fracture and a medial malleolus fracture consistent with a Maisonneuve fracture on plain films. She is having a difficult time with weightbearing and ambulation, therefore she reported to the ED. Her baseline walking is with a walker and at times a wheelchair for assistance. She was admitted to the hospital in light of her pain and ambulatory dysfunction. To note, the patient has a complex medical history that includes chronic anticoagulation on Lovenox for bilateral PE, superficial thrombophlebitis and afib per the most recent anticoagulation note. She also has a history of breast cancer with chemo, and has been recovering from a brain abscess earlier his year. Please see medical history for a full report. Her goal has been to increase her ambulation with home therapy since the brain operations. This fall has set her back. She currently denies any fever, chills or constitutional symptoms . Allergies Allergy/AdvReac Type Severity Reaction Status Date / Time acetaminophen Allergy Unknown raises Unverified 10/13/23 11:12 blood pressure in high doses Home Medications Medication Instructions Recorded Confirmed Type loratadine 10 mg tablet 10 mg PO QAM 07/11/19 10/13/23 History lancets 30 gauge (OneTouch Delica #200 ea 04/23/20 09/02/23 Rx Lancets) blood sugar diagnostic #400 ea 10/31/22 09/02/23 Rx inhalational spacing device #1 ea 11/29/22 09/02/23 Rx (Aerochamber MV spacer) multivitamin with minerals 1 tab PO DAILY 12/25/22 10/13/23 History (Multiple Vitamin-Minerals tablet) vitamin E (dl, acetate) 180 mg 180 mg PO DAILY 12/25/22 10/13/23 History (400 unit) capsule insulin lispro 100 unit/mL 11 unit subcut TID 02/17/23 10/13/23 History subcutaneous solution (Humalog U-100 Insulin) magnesium oxide 400 mg PO DAILY 02/17/23 10/13/23 History sodium chloride 0.65 % nasal spray 1 spray intranasal TID PRN 02/17/23 10/13/23 History aerosol ([place] Saline) Congestion docusate sodium 100 mg capsule 100 mg PO HS Constipation 02/27/23 10/13/23 History famotidine 40 mg tablet 40 mg PO DAILY #90 tabs 02/27/23 10/13/23 Rx furosemide 20 mg tablet 40 mg (2 x 20 mg) PO QAM #180 tabs 02/27/23 10/13/23 Rx gabapentin 300 mg capsule 300 mg PO TID #270 caps 02/27/23 10/13/23 Rx umeclidinium 62.5 mcg/actuation 1 inh inhalation DAILY #90 ea 02/27/23 10/13/23 Rx blister powder for inhalation (Incruse Ellipta) voriconazole 200 mg tablet 400 mg (2 x 200 mg) PO Q12H #360 02/27/23 10/13/23 Rx tabs miscellaneous medical supply 1 ea miscellaneous .COMPLEX L89.90 03/02/23 09/02/23 Rx #1 ea miscellaneous medical supply 1 ea miscellaneous .COMPLEX L89.90 03/02/23 09/02/23 Rx #1 ea albuterol sulfate 90 mcg/actuation 2 inh inhalation Q4 PRN shortness 03/17/23 10/13/23 Rx aerosol inhaler (Ventolin HFA) of breath or wheezing or cough #6.7 grams insulin syringe-needle U-100 1 mL #300 ea 04/02/23 09/02/23 Rx 31 gauge x 5/16" (BD Insulin Syringe Ultra-Fine) insulin glargine 100 unit/mL 55 unit subcut HS 04/09/23 10/13/23 History subcutaneous solution (Lantus U-100 Insulin) potassium chloride 10 mEq 10 meq PO DAILY #30 tabs 04/09/23 10/13/23 Rx tablet,extended release (Klor-Con) insulin syringe-needle U-100 0.5 #300 ea 05/20/23 09/02/23 Rx mL 31 gauge x 5/16" (BD Insulin Syringe Ultra-Fine) enoxaparin 40 mg/0.4 mL 40 mg (0.4 mL) subcut Q24H #90 09/03/23 10/13/23 Rx subcutaneous syringe syringes beclomethasone dipropionate 40 2 inh inhalation QAM 10/13/23 10/13/23 History mcg/actuation HFA breath activated aerosol (Qvar RediHaler) cetirizine 5 mg-pseudoephedrine ER 1 tab PO .LUNCH 10/13/23 10/13/23 History 120 mg tablet,extended release,12hr ferrous sulfate 325 mg (65 mg 325 mg PO DAILY 10/13/23 10/13/23 History iron) tablet,delayed release ibuprofen 200 mg tablet 200 mg PO Q6H PRN pain/fever 10/13/23 10/13/23 History rosuvastatin 5 mg tablet 5 mg PO QAM 10/13/23 10/13/23 History Past Med/Surg History Medical History Maisonneuve fracture of left lower extremity Infiltrating ductal carcinoma of breast Closed wedge compression fracture of first lumbar vertebra Anterior epistaxis Hypomagnesemia COVID Spinal stenosis of lumbar region with radiculopathy History of colon polyps BENIGN Acute bursitis shots in each knee for bursitis or january or february 2022 History of adenomatous polyp of colon History of anesthesia reaction SLOW TO WAKE UP PT REPORTS NEEDS FACE MASK FOR OXYGEN, NO NASAL CANNULA - CAN'T TOLERATE/NASAL PASSAGES CLOSE UP Hyperplastic polyp of descending colon CLL (chronic lymphocytic leukemia) Chronic back pain Anemia On anticoagulant therapy Acute superficial venous thrombosis of left lower extremity 06/2020. Degenerative arthritis of knee, bilateral Atrial fibrillation dx a while ago, following with PCP, no pacer; has seen jackie hamilton 06/2022 no hx cardioversion GERD (gastroesophageal reflux disease) Morbid obesity with BMI of 40.0-44.9, adult Hyperlipidemia Lumbar spinal stenosis Hypertension COPD (chronic obstructive pulmonary disease) daily inh Diabetes mellitus IDDM Lyme disease hx PE (pulmonary embolism) (~03/06/14) hx 2013 post op mastectomy; treated with AC Chronic lymphocytic leukemia (CLL), B-cell (~03/22/13) chemotherapy ~2017 and currently taking oral chemo Breast cancer, right breast (01/30/14) 2013; chemo, Rt mastectomy, 2020 reoccurrence Surgical History History of right total mastectomy Port-A-Cath in place (01/02/21) Insertion of Access Port Dr. Low 01/02/2021 History of bilateral tubal ligation History of colonoscopy with polypectomy Status post epidural steroid injection History of tooth extraction all teeth removed History of vascular access device had placed for chemo--removed in 2013, port put in again on right side 01/02/2021 > no IV chemo at present just oral History of mastectomy R WITH AXILLARY EXCISION-R ARM RESTRICTION 2013 History of section X 2 Family History Father Family history of diabetes mellitus Myocardial infarction Heart disease Hypertension Mother Family history of diabetes mellitus Brother Family history of diabetes mellitus Cancer Grandmother Family history of diabetes mellitus Grandfather Family history of diabetes mellitus Aunt Cancer Other No family history of adverse response to anesthesia Denies family history of Ovarian cancer Prostate cancer Breast cancer Colorectal cancer Social History Smoking Status: Never smoker Second Hand Exposure: Yes; Do You Dip or Chew Tobacco: No; Hx Alcohol Use: No Hx Substance Use: No Preferred Language: Iranian Communication Ability: Effective Communication Tools: Writing Tablet Visual Impairment: Limited Hearing Ability: Normal 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 Beliefs That Will Affect Care: None marital status: Current Living Situation: Spouse Current Living Situation Comment: [facility] current occupational status: retired How many Children do You have: 2 Other Information That Helps Us Care for You: No Feels Safe at Home: Yes Safety Concerns: Feels Safe At This Time Childhood Exposure to Second-Hand Smoke: No Diet: regular caffeine: Yes during the past year weight has: remained stable Dental Care, Regularly: No Physical Activity Frequency: Daily Seatbelt Use: always Sunscreen Use: No Assistive Devices: Denture - Upper, Denture - Lower, Glasses, Hospital Bed, Mechanical Lift, Walker and Wheelchair Review of Systems All systems reviewed & are unremarkable except as noted in HPI & below. Physical Exam . Alert and oriented. She does have some slower speech. She is alert. Resting comfortably in hospital bed with eft leg elevated. Constitutional WD/WN, vitals as above Respiratory normal respiratory effort; no respiratory distress and no cough Musculoskeletal She is resting comfortably in a posterior slab splint. Splint was not removed for exam. She has full and painless ROM of her toes. She is able to bend at the knee. There is an effusion, but no tenderness. No erythema. NV intact. Skin intact. Skin no rashes, warm and dry Psychiatric A+Ox3, euthymic affect Results & Data Results & Data Laboratory Results Abnormal lab results 10/13/23 Range/Units 11:07 WBC 15.37 H (4.8-10.8) K/ul RBC 4.05 L (4.20-5.40) M/uL Potassium 3.4 L (3.5-5.1) mmol/L BUN/Creatinine Ratio 22.4 H (10-20) Glucose 254 H (70-99(Fasting)) mg/dl . Diagnostic Findings X-ray images of the left knee, left tib-fib left ankle and left foot on 10/13/2023 Independently reviewed. There is a proximal fibula fracture. There is also a medial malleolus fracture that is nondisplaced. Ankle mortise intact. No bony abnormalities in the left foot or knee. There is a knee effusion with degenerative changes noted. PG Care Time/CCT Total # of Minutes Spent Total Time Spent with Patient: Total time spent is greater than 50% in coordination of care (as documented) at patient's floor/unit and/or counseling patient: Supervising Physician Co-Signing Physician Notes Agree with the physician clinical project assistant's note. I independently evaluated the patient myself. Splint was well fit and adequate for now. Controlled active motion boot will facilitate care. It is a Maisonneuve pattern, but the medial malleolar fracture is nondisplaced. There is minimal displaced in the proximal fibular fracture. She has a low demand ambulator. For now, this can be attempted nonoperative management with radiographic follow-up. Due to medical comorbidities and apparent osteoporosis, internal fixation may not be the best option. She should have minimal weightbearing on the affected left lower extremity. She can weight-bear through the boot for standing, pivoting, transferring. Do not recommend she attempt ambulation. Coding Level of Care Code 91305 IN/OBS CONSULT LVL 3,45M Diagnoses Maisonneuve fracture of left lower extremity S82.862A
[2023-10-13] MEDS ORDERED: DEXTROSE 50% 50 ML SYRINGE IV PRN (14:58)
[2023-10-13] MEDS ORDERED: GLUCOSE 10 TAB/TUBE PO PRN (14:58)
[2023-10-13] MEDS ORDERED: CARBOHYDRATES FOR HYPOGLYCEMIA PO PRN (14:58)
[2023-10-13] MEDS ORDERED: GLUCOSE 40% GEL 15 GM TUBE PO PRN (14:58)
[2023-10-13] MEDS ORDERED: GLUCAGON FOR INJ 1 MG VIAL SQ PRN (14:58)
[2023-10-13] MEDS ORDERED: PHARMACY GLYCEMIC MGMT CONSULT PRN (14:58)
[2023-10-13] MEDS ORDERED: ENOXAPARIN INJ 40 MG/0.4 ML SYR SQ SCH (16:00)
[2023-10-13] MEDS: POTASSIUM CHLORIDE 10 MEQ TABCR PO SCH (16:09)
[2023-10-13] MEDS: GABAPENTIN 300 MG CAP PO SCH ×2 (16:51→21:22)
[2023-10-13] MEDS: INSULIN ASPART PER UNIT CHARGE SC SCH ×2 (17:43→21:27)
[2023-10-13] MEDS ORDERED: KETOROLAC TROMETHAMINE 15 MG/ML VIAL IV PRN (20:14)
[2023-10-13] MEDS ORDERED: oxyCODONE HCL IR 5 MG TAB (IMMEDIATE RELEASE) PO PRN (20:15)
[2023-10-13] MEDS ORDERED: LANTUS PER UNIT CHARGE SQ SCH (21:00)
[2023-10-13] MEDS: DOCUSATE SODIUM 100 MG CAP PO SCH (21:22)
[2023-10-13] MEDS: VORICONAZOLE 200 MG TABLET PO SCH (21:22)
--- NOTE | 2023-10-14 07:18 | XRay Report ---
XR chest 1V portable CLINICAL HISTORY: Hypoxia. COMPARISON STUDY: Chest CT December 12, 2022. Chest radiograph December 18, 2022. FINDINGS: Right subclavian Cnaudh-t-Uvim is in place. Low lung volumes are again noted. There is no p neumothorax or pleural effusion. Cardiomegaly is unchanged. There is no evidence for pulmonary edema. Linear left basilar densities favor atelectasis. There is no consolidation to suggest pneumonia. IMPRESSION: No acute cardiopulmonary findings. ACT 112: Negative or not required by law. Electronically signed by: Ashok Henry M.D. 10/14/2023 7:17 AM
[2023-10-14] MEDS: HEPARIN 100 UNIT/ML 5ML FLUSH FLUSH PRN (07:34)
[2023-10-14] MEDS: POTASSIUM CHLORIDE 10 MEQ TABCR PO SCH (08:04)
[2023-10-14] MEDS: GABAPENTIN 300 MG CAP PO SCH ×3 (08:04→21:32)
[2023-10-14] MEDS: VORICONAZOLE 200 MG TABLET PO SCH ×2 (08:04→21:33)
[2023-10-14] MEDS: LORATADINE 10 MG TAB PO SCH (08:05)
[2023-10-14] MEDS: ENOXAPARIN INJ 40 MG/0.4 ML SYR SQ SCH (08:05)
[2023-10-14] MEDS: FAMOTIDINE 40 MG TABLET PO SCH (08:05)
[2023-10-14] MEDS: ROSUVASTATIN CALCIUM 5 MG TAB PO SCH (08:05)
[2023-10-14] MEDS: FUROSEMIDE 40 MG TAB PO SCH (08:05)
[2023-10-14] MEDS: FLUTICASONE FUROATE 100MCG 14 PUFFS/INHALER INH SCH (08:06)
[2023-10-14] MEDS: UMECLIDINIUM BROMIDE 62.5MCG/BLISTER 7 PUFFS/INHALER INH SCH (08:06)
[2023-10-14 08:16] LABS: BUN Creatinine Ratio 20.8 (10-20); Creatinine Clr Calc Pharmacy 91.8 ml/min; Est GFR (African American) 97.7 ml/min; Est GFR (Non-African American) 84.3 ml/min; Magnesium 1.7 mg/dl (1.7-2.4)
[2023-10-14 08:40] LABS: Hematocrit (blood only) 38.5 % (37.0-47.0); Hemoglobin 12.3 g/dl (12.0-16.0); Mean Corpuscular Hemoglobin 30.2 pg (25.0-34.0); Mean Corpuscular Hgb Conc 31.9 g/dL (32.0-36.0); Mean Corpuscular Volume 94.6 fL (80.0-100.0); Mean Platelet Volume 11.2 fL (9.4-12.4); Platelet Count 161 K/uL (130-400); RDW Coefficient of Variation 13.7 % (11.5-14.5); RDW Standard Deviation 47.1 fL (36.4-46.3); Red Blood Count 4.07 M/uL (4.20-5.40); White Blood Count 15.33 K/ul (4.8-10.8)
[2023-10-14] MEDS ORDERED: LANTUS PER UNIT CHARGE SC SCH ×2 (09:00→21:00)
[2023-10-14 09:06] LABS: Basophils % (auto) 0.7 %; Eosinophils # (auto) 0.46 K/uL (0.00-0.50); Immature Granulocytes # (auto) 0.12 K/uL (0.01-0.20); Immature Granulocytes % (auto) 0.8 %; Lymphocytes # (auto) 6.63 K/uL (1.20-3.40); Lymphocytes % (auto) 43.2 %; Monocytes % (auto) 14.4 %; Neutrophils # (auto) 5.82 K/uL (1.40-6.50); Neutrophils % (auto) 37.9 %; Polychromasia 1+
[2023-10-14] MEDS: INSULIN ASPART PER UNIT CHARGE SC SCH ×4 (09:21→21:33)
--- NOTE | 2023-10-14 10:41 | Pharmacy Report ---
Pharmacy Glycemic Short Note 2 - Date of Service October 14, 2023 - Glycemic Short BSG Results (Last 24 hours): 10/13/23 10/13/23 10/13/23 11:07 16:54 21:23 Glucose 254 H POC Glucose 160 H 193 H 10/14/23 10/14/23 07:34 07:58 Glucose 173 H POC Glucose 182 H OUTPATIENT ANTIDIABETIC REGIMEN: * Lantus 55 units SC HS * Novolog 11 units TID ASSESSMENT: * Enid is a 73 YOF admitted for a fall and leg injury with a history of diabetes mellitus on basal bolus insulin at home. Pharmacy has been consulted to assist with glycemic management. * Fasting BSG slightly elevated this AM, suspect due to only receiving 13 units of basal insulin yesterday. Will move basal insulin to HS and allow for up to an additional 50% to be given based on bedtime BSG. May need tighter Novolog during the day today to cover, will reassess and loosen as needed tomorrow. * All BSGs slightly above goal range. Will tighten carbohydrate ratio. PLAN FOR INPATIENT GLYCEMIC CONTROL: * Hold outpatient oral diabetes medications * Basal insulin * Lantus 10-25 units SC HS (see eMAR for additional details) * Bolus insulin * NovoLog per scale ACHS or Q6hrs while NPO * Goal Range: Low 110 mg/dL - High 140 mg/dL * Correction Factor: 30 mg/dL/unit * Nutritional / Prandial insulin per carb ratio of 1 unit per 8 grams CHO consumed
[2023-10-14] MEDS: DOCUSATE SODIUM 100 MG CAP PO SCH (21:34)
--- NOTE | 2023-10-14 22:03 | Hospitalist Progress Note ---
Date of Service October 14, 2023 Assessment & Plan (1) Maisonneuve fracture of left lower extremity: Plan: Nonweightbearing on left lower extremity pending orthopedic evaluation for operative versus nonoperative management Consult orthopedics will transition to tall boot. Awaiting PT/OT evals (2) Unstable gait: Plan: Currently unstable gait at baseline since of brain abscess Will need physical therapy/Occupational Therapy (3) COPD (chronic obstructive pulmonary disease): Plan: No acute exacerbation suspected Continue her routine inhalers (4) Diabetes mellitus: Plan: HbA1c 6.2 in August, no need to repeat this Home regimen of Lantus 55 units HS, insulin lispro 11 units TID Glucose elevated at 254 on admission, this is off to her usual breakfast lispro dosing Suspect her diet will be substantially less than carbohydrates therefore reduce basal dosing in half with NovoLog dosing based upon this Start Lantus 13 units BID NovoLog: --Goal BSG Range: Low 110 mg/dL, High 140 mg/dL --Correction Factor: 30 mg/dL/unit --Carbohydrate ratio = 10 g/unit --BSGs ACHS if eating, q6h if npo (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, remains on voriconzole (6) Brain abscess: (7) On continuous oral anticoagulation: (8) Weakness of left side of body: (9) Breast cancer, right breast: Plan VTE Prophylaxis - Lovenox 40mg SQ daily Diet - T2DM Disposition - observation to med/surg Admission and Anticipated Discharge Date Admission Date: October 13, 2023 Subjective Patient reports no new symptoms. Review of Systems Review of Systems: All systems reviewed & are unremarkable except as noted in HPI & below Physical Exam Constitutional: WD/WN, vitals as above Eyes: + anicteric sclerae; normal pupil size Respiratory: normal respiratory effort, lungs clear to auscultation Cardiovascular: RRR, no murmur, no edema Gastrointestinal (Abdomen): normal bowel sounds, soft, nontender, no hepatosplenomegaly Musculoskeletal: Left leg in splint not removed for exam, sensation intact in toes and cap refil < 2s Skin: no rashes, warm and dry Neurologic: moves all extremities, + focal motor deficit (left sided weakness) and awake; not confused Psychiatric: A+Ox3, euthymic affect Results & Data Results & Data Vital Signs (Past 12 Hours) Vital Signs Temp Pulse Resp BP Pulse Ox O2 Del Method 10/14/23 21:17 36.7 C 82 16 137/80 93 Room Air 10/14/23 15:13 36.6 C 81 16 133/80 91 Room Air PG Care Time/CCT Total # of Minutes Spent Total Time Spent with Patient: Total time spent is greater than 50% in coordination of care (as documented) at patient's floor/unit and/or counseling patient: Coding Level of Care Code 66735 SUB INP/OBS CARE 2/35MIN Diagnoses Maisonneuve fracture of left lower extremity S82.862A Unstable gait R26.81 COPD (chronic obstructive pulmonary disease) J44.9 Diabetes mellitus E11.9 Diabetes mellitus complication status: without complication Diabetes mellitus retirement insulin use: unspecified exterminator termite insulin use status Diabetes mellitus type: type 2 Aspergillosis B44.9 Brain abscess G06.0 On continuous oral anticoagulation Z79.01 Weakness of left side of body R53.1 Breast cancer, right breast C50.911 (4) Diabetes mellitus Diabetes mellitus complication status: without complication Diabetes mellitus exterminator termite insulin use: unspecified exterminator termite insulin use status Diabetes mellitus type: type 2 Qualified Code(s): E11.9 - Type 2 diabetes mellitus without complications
[2023-10-15] MEDS: ENOXAPARIN INJ 40 MG/0.4 ML SYR SQ SCH (08:50)
[2023-10-15] MEDS: FUROSEMIDE 40 MG TAB PO SCH (08:51)
[2023-10-15] MEDS: GABAPENTIN 300 MG CAP PO SCH ×2 (08:51→13:55)
[2023-10-15] MEDS: FAMOTIDINE 40 MG TABLET PO SCH (08:51)
[2023-10-15] MEDS: LORATADINE 10 MG TAB PO SCH (08:52)
[2023-10-15] MEDS: POTASSIUM CHLORIDE 10 MEQ TABCR PO SCH (08:52)
[2023-10-15] MEDS: ROSUVASTATIN CALCIUM 5 MG TAB PO SCH (08:52)
[2023-10-15] MEDS: FLUTICASONE FUROATE 100MCG 14 PUFFS/INHALER INH SCH (08:53)
[2023-10-15] MEDS: UMECLIDINIUM BROMIDE 62.5MCG/BLISTER 7 PUFFS/INHALER INH SCH (08:53)
[2023-10-15] MEDS: VORICONAZOLE 200 MG TABLET PO SCH (08:53)
[2023-10-15] MEDS: INSULIN ASPART PER UNIT CHARGE SC SCH ×3 (09:09→17:26)
--- NOTE | 2023-10-15 10:26 | Hospitalist Progress Note ---
Date of Service October 15, 2023 Assessment & Plan (1) Maisonneuve fracture of left lower extremity: Plan: Nonweightbearing on left lower extremity currently nonoperative management Consult orthopedics, left proximal fibula fracture and medial malleolus fracture consistent with a Maisonneuve fracture. will transition to tall boot. Awaiting PT/OT evals (2) Unstable gait: Plan: Currently unstable gait at baseline since of brain abscess with aspergillius Will need physical therapy/Occupational Therapy (3) COPD (chronic obstructive pulmonary disease): Plan: No acute exacerbation suspected Continue her routine inhalers (4) Diabetes mellitus: Plan: HbA1c 6.2 in August, no need to repeat this Home regimen of Lantus 55 units HS, insulin lispro 11 units TID Glucose elevated at 254 on admission, this is off to her usual breakfast lispro dosing Suspect her diet will be substantially less than carbohydrates therefore reduce basal dosing in half with NovoLog dosing based upon this Start Lantus 13 units BID NovoLog: --Goal BSG Range: Low 110 mg/dL, High 140 mg/dL --Correction Factor: 30 mg/dL/unit --Carbohydrate ratio = 10 g/unit --BSGs ACHS if eating, q6h if npo (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, diagnosed as cerebellar mass, treated at [facility] with suboccipaital cranitotmy and evacuation remains on voriconzole (6) Breast cancer, right breast: Plan: also history of CLL Plan VTE Prophylaxis - Lovenox 40mg SQ daily, history of previous PE Diet - T2DM Disposition - observation to med/surg Admission and Anticipated Discharge Date Admission Date: October 13, 2023 Results & Data Results & Data Vital Signs (Past 12 Hours) Vital Signs Temp Pulse Resp BP Pulse Ox O2 Del Method 10/15/23 07:18 97.3 F L 74 16 139/81 94 Room Air PG Care Time/CCT Total # of Minutes Spent Total Time Spent with Patient: Total time spent is greater than 50% in coordination of care (as documented) at patient's floor/unit and/or counseling patient: Coding Diagnoses Maisonneuve fracture of left lower extremity S82.862A Unstable gait R26.81 COPD (chronic obstructive pulmonary disease) J44.9 Diabetes mellitus E11.9 Diabetes mellitus complication status: without complication Diabetes mellitus laborer marine terminal insulin use: unspecified group home insulin use status Diabetes mellitus type: type 2 Aspergillosis B44.9 Breast cancer, right breast C50.911 (4) Diabetes mellitus Diabetes mellitus complication status: without complication Diabetes mellitus group home insulin use: unspecified laborer marine terminal insulin use status Diabetes mellitus type: type 2 Qualified Code(s): E11.9 - Type 2 diabetes mellitus without complications
[2023-10-15] MEDS: HEPARIN 100 UNIT/ML 5ML FLUSH FLUSH PRN ×2 (10:51→16:32)
--- NOTE | 2023-10-15 18:12 | Discharge Summary ---
Date of Service October 15, 2023 Admission HPI Per Admitting Provider Enid Swan is a 73 year old female with significant history of breast cancer and brain abscess with aspergillus who presents to the ER with left lower extremity pain after slipping in the shower earlier today. She reports using a new system in her shower with just a seat without the slide and she was unable to stand up well and slipped on the mat. She was in an awkward position and her acute care registered nurse eased her down to the ground. She complained of left ankle pain and her had to use a Matt lift to get her into a wheelchair. She was unable to stand enough to get to her walker therefore he brought her to the ER today. She has a significant history of CLL and right breast cancer. Previously on Femara and Acalabrutinib for respective conditions. 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 She was subsequently diagnosed with aspergillus fumigatus. Subsequent developed erythema of her right eye and found to have fungemia with right corneal epithelial involvement. She was discharged for rehabilitation due to ongoing left sided weakness in January. Baseline she can stand with assistance and walk for short =distances but is mostly wheelchair bound. She has a history of pulmonary embolism in 2014 and remains on VTE prophyalxis dose Lovenox due to interaction with voriconazole. Principal Diagnosis Maisonneuve fracture left lower leg proximal fibulae and medial malleolus Ambulation challenges secondary to fracture Discharge Exam Awake pleasant quite knowledgeable about her health history. Distal sensation capillary refill are intact to her foot her boot is intact when I visited her. Cardiac is regular lungs are clear she is able to lay flat without shortness of breath Discharge Data Allergies Allergy/AdvReac Type Severity Reaction Status Date / Time acetaminophen Allergy Unknown raises Unverified 10/13/23 11:12 blood pressure in high doses Consultations 10/13/23 11:00 ED Decision to Admit Stat 10/13/23 12:19 Consult Orthopedic Surgery Routine Ordered Studies 10/13/23 08:45 CT head/brain wo con Stat Hospital Course (1) Maisonneuve fracture of left lower extremity: Orthopedics will allow brief flatfoot weightbearing on left lower extremity currently nonoperative management left proximal fibula fracture and medial malleolus fracture consistent with a Maisonneuve fracture. Patient was able to tolerate tall boot. 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 Discharge Plan Discharge Items Patient Disposition: Home - Self-Care Reason For Visit: MAISONNEUVE FRACTURE Discharge Diagnosis: Maisonneuve fracture left lower leg proximal fibulae and medial malleolus Condition on Discharge: Fair Activity: Per Instructions section Activity Comment: wear boot and limit weight bearing as instructed by Dr Matthews Non-emergency contact: Primary Care Provider and Surgeon Call non-emergency contact if: your symptoms worsen Follow-up/Referrals: Suzy Barton CRNP [Primary Care Provider] - 10/21/23 11:30 am (w/ Dr. Kurtz) Charly Matthews MD [Surgeon] - 10/28/23 11:00 am (w/ JESSICA Gongora ) Diet: Regular Addtl Attending Provider Instructions: Please wear your tall boot. You can be flatfoot weightbearing until reevaluation in 7-10 days in an outpatient setting. Continue elevations, icing. tylenol for minor pain Oxycodone for more significant pain, care to avoid constipation if using oxycodone Boot can be taken off for rest and for hygiene. Would also recommend skin checks for development of ulcers. Would recommend 7-10 day follow-up with Dr. Matthews's clinic. Pending Studies at Discharge: No Stand-Alone Forms: My [facility], Smoking Cessation Medications and DC Order Prescriptions: New oxycodone 5 mg capsule 5 mg PO TID PRN (Reason: pain) Qty: 14 0RF Continued insulin lispro [Humalog U-100 Insulin] 100 unit/mL solution 11 unit subcut TID Rx Instructions: before meals Red Jacket Saline 0.65 % aerosol,spray 1 spray intranasal TID PRN (Reason: Congestion) magnesium oxide 400 mg magnesium capsule 400 mg PO DAILY (DME) blood sugar diagnostic Strip See Dose Instructions .ROUTE .MEDSUPPLY Qty: 400 3RF Rx Instructions: TEST FOUR TIMES DAILY; DX CODE- E11.9 miscellaneous medical supply Misc 1 ea miscellaneous .COMPLEX Qty: 1 0RF Rx Instructions: 1 ea as directed While sitting in wheelchair; Gel pad wheelchair cushion miscellaneous medical supply Misc 1 ea miscellaneous .COMPLEX Qty: 1 0RF Rx Instructions: 1 ea as directed; Overlay mattress albuterol sulfate [Ventolin HFA] 90 mcg/actuation HFA aerosol inhaler 2 inh inhalation Q4 PRN (Reason: shortness of breath or wheezing or cough) Qty: 6.7 1RF Rx Instructions: use with spacer device. (DME) insulin syringe-needle U-100 [BD Insulin Syringe Ultra-Fine] 1 mL 31 gauge x 5/16 syringe See Dose Instructions .ROUTE .MEDSUPPLY Qty: 300 3RF Rx Instructions: ONCE DAILY WITH LANTUS potassium chloride [Klor-Con 10] 10 mEq tablet extended release 10 meq PO DAILY Qty: 30 6RF insulin glargine [Lantus U-100 Insulin] 100 unit/mL solution 55 unit subcut HS Rx Instructions: before bed (DME) insulin syringe-needle U-100 [BD Insulin Syringe Ultra-Fine] 0.5 mL 31 gauge x 5/16" syringe See Rx Instructions .ROUTE .MEDSUPPLY Qty: 300 4RF Rx Instructions: Use As directed QID WITH NOVOLOG enoxaparin 40 mg/0.4 mL syringe 40 mg subcut Q24H Qty: 90 0RF Rx Instructions: Per [facility] loratadine 10 mg tablet 10 mg PO QAM (DME) lancets [OneTouch Delica Lancets] 30 gauge misc See Dose Instructions .ROUTE .MEDSUPPLY Qty: 200 4RF Rx Instructions: As directed QID docusate sodium 100 mg capsule 100 mg PO HS famotidine 40 mg tablet 40 mg PO DAILY Qty: 90 3RF furosemide 20 mg tablet 40 mg PO QAM Qty: 180 3RF Rx Instructions: Pt only took 20mg on 10/13/23 gabapentin 300 mg capsule 300 mg PO TID Qty: 270 3RF Incruse Ellipta 62.5 mcg/actuation blister with device 1 inh INHALATION DAILY Qty: 90 3RF voriconazole 200 mg tablet 400 mg PO Q12H Qty: 360 3RF Rx Instructions: After breakfast and after dinner (DME) Aerochamber MV Spacer See Rx Instructions .Route Qty: 1 0RF Rx Instructions: As directed with albuterol. Multiple Vitamin-Minerals Tablet 1 tab PO DAILY vitamin E (dl, acetate) 180 mg (400 unit) Capsule 180 mg PO DAILY ibuprofen 200 mg Tablet 200 mg PO Q6H PRN (Reason: pain/fever) cetirizine-pseudoephedrine 5-120 mg Tablet Extended Release 12 Hr 1 tab PO .LUNCH ferrous sulfate 325 mg (65 mg iron) Tablet,Delayed Release (Dr/Ec) 325 mg PO DAILY rosuvastatin 5 mg tablet 5 mg PO QAM Qvar RediHaler 40 mcg/actuation HFA aerosol breath activated 2 inh inhalation QAM Discharge Orders: Discharge Order (Routine); Ordered 10/15/23 Ordered By: Tiago Douglas/Other Patient Handouts: Leg or Arm Fracture Admission Data Admit Date/Time: 10/13/23 12:01 Attending Provider: Tiago Hitchcock Admit Provider: Dariel Gongora Primary Care Provider: Suzy Barton Other Providers: Dariel Gongora; Charly Matthews Other Interventions: Discharge Summary Assessment (RN) Last Done: 10/15/23 17:12 Coding Level of Care Code 66656 INP/OBS DISCH >30 MIN Diagnoses Maisonneuve fracture of left lower extremity S82.862A Unstable gait R26.81 COPD (chronic obstructive pulmonary disease) J44.9 Diabetes mellitus E11.9 Diabetes mellitus complication status: without complication Diabetes mellitus longterm insulin use: unspecified terminal operations supervisor insulin use status Diabetes mellitus type: type 2 Aspergillosis B44.9 Breast cancer, right breast C50.913
[2023-10-15] MEDS ORDERED: LANTUS PER UNIT CHARGE SC SCH (21:00)
== END 2023-10-15 18:28 | disposition home or self-care (01) ==
LOC: EDINP 08:12 → ED 08:12 → SUATTDRO 12:01 → 3W 14:58